=== PATIENT | male | born 1975 | race Caucasian/White ===

== ENCOUNTER 2024-08-26 17:01 | Emergency (ER) | payer OTHER, SELFPAY ==
[2024-08-26 17:06] VITALS: BP 187/114
[2024-08-26 17:36] LABS: % Basophils 0.8 % (0-2); % Eosinophils 6.6 % (0-6); % Immature Granulocytes 0.1 % (0-0.5); % Lymphocytes 44.9 % (20.5-51.1); % Monocytes 8.9 % (1.7-9.3); % Neutrophils 38.7 % (42.2-75.2); Absolute Basophils 0.1 10^3/uL (0-0.2); Absolute Eosinophils 0.5 10^3/uL (0-0.7); Absolute Lymphocytes 3.4 10^3/uL (1.2-3.4); Absolute Monocytes 0.7 10^3/uL (0.1-0.6); Absolute Neutrophils 2.9 10^3/uL (1.4-6.5); Hematocrit 38.1 % (39.0-52.0); Hemoglobin 13.7 g/dL (13.0-18.0); Mean Corpuscular Hgb 28.5 pg (27.0-31.0); Mean Corpuscular Volume 79.2 fL (80.0-94.0); Mean Platelet Volume 8.6 fL (7.4-10.4); Nucleated Red Blood Cells % 0 % (-); Platelet Count 256 10^3/uL (130-400); Red Blood Cell Count 4.81 10^6/uL (4.70-6.10); Red Cell Dist. Width 12.8 % (11.5-14.5); White Blood Cell Count 7.6 10^3/uL (4.8-10.8)
[2024-08-26 17:53] LABS: ALT (SGPT) 20 U/L (0-50); AST (SGOT) 20 U/L (17-59); Albumin 4.2 g/dl (3.5-5.0); Alkaline Phosphatase 82 U/L (38-126); Blood Urea Nitrogen 17 mg/dl (9-20); Calcium 9.2 mg/dl (8.4-10.2); Carbon Dioxide 24 mmol/L (22-30); Chloride 101 mmol/L (98-107); Glucose 104 mg/dl (70-99); Sodium 140 mmol/L (135-145); Total Bilirubin 0.4 mg/dl (0.2-1.3); Total Protein 7.1 g/dl (6.3-8.2); eGFR > 60.00
[2024-08-26 19:12] VITALS: BP 179/108
[2024-08-26 20:36] VITALS: BMI 28.2
--- NOTE | 2024-08-26 20:46 | ED.GENMED ---
History of Present Illness
General
Chief Complaint: Change in Mental Status
Source: patient
Exam Limitations: none
Time Seen by Provider: 08/26/24 20:26
History of Present Illness
History of Present Illness:
This is a 48 year old male that comes in with forgetfulness. States that he is under a lot of stress and anxiety. ON Monday night he went to lay down early. Then on Monday he was unable o remember what happened on Monday night. States that
he was oriented to person but he felt that something was wrong. states that his conversation was just not his normal but he was not confused. States that he feels better know. Denies any fever, chills, chest pain, SOB, abd pain, nausea,
vomiting, diarrhea, dizziness, urinary burning.
Past History
Past History
ED Past Medical History: CAD, HTN, Hypercholesterolemia, [place] and Other (MRSA)
ED Past Surgical History: Cardiac (Stents X 2) and Cholecystectomy
Social History
Tobacco: Smoker
Alcohol: None
Drug: Former user
Personal:
Living: with family
Review of Systems
Review of Systems
All Other Systems: ROS reviewed and negative except as documented in HPI and ROS
Constitutional: Reports no symptoms; Denies fever or chills
EENT: Reports no symptoms
Respiratory: Reports no symptoms; Denies cough or trouble breathing
Cardiac: Reports no symptoms; Denies chest pain
ABD/GI: Reports no symptoms; Denies abdominal pain, nausea, vomiting or diarrhea
: Denies dysuria, frequency or urgency
Musculoskeletal: Reports no symptoms
Skin: Reports no symptoms
Neurological: Reports headache; Denies dizzy
Psychiatric: Reports anxiety and other (Increased stress)
Phy Exam
General Physical Exam
General Presentation: no apparent distress
General age: appears stated age
General Skin: warm and dry
General Habitus: normal
General Mental: alert
General Hydration: dry mucous membranes
ENT Exam
ENT Exam: TM's normal, pharynx normal and neck supple
Eye Exam
Eye Exam: PERRL and EOMI
Cardiovascular Exam
Cardiovascular Exam: regular rate/rhythm, no edema, no murmur and normal peripheral pulses
Pulmonary Exam
Pulmonary Exam: lungs clear, no respiratory distress, no rales, chest non tender, no crackles, no rhonchi, no wheezing and no cough
Gastrointestinal Exam
Gastrointestinal Exam: normal bowel sounds, non tender, soft, no organomegaly, no pulsatile mass and non distended
NIH Stroke Score
Level of Consciousness: 0 - Alert
LOC questions: 0-Answers both correctly
LOC Commands: 0-Performs both correctly
Best Gaze: 0-Normal
Visual Rodney: 0=Normal, no visual loss
Facial palsy: 0=Normal, symmetrical
Motor - Right Arm: 0=No drift 10 seconds
Motor - Left Arm: 0=No drift 10 seconds
Motor - Right Le-No drift 5 seconds
Motor - Left Le-No drift 5 seconds
Limb Ataxia: 0-Absent
Sensation: 0-Normal
Best Language: 0-No aphasia
Dysarthria: 0-Normal
Extinction and Inattention: 0-No abnormality
Total Score:: 0
Musculoskeletal Exam
Musculoskeletal Exam: full ROM, no edema and other (Hand grasp and push pulls equal)
Skin Exam
Skin Exam: normal color, warm/dry, no rash and no petechia
Psychiatric Exam
Psychiatric Exam: normal mood/affect
Course
Orders/Labs/Results
Orders:
Orders
08/26/24 17:09
ECG [Electrocardiogram (*1)] Urgent
Reason for Study: Other
Other Reason for Exam: elevated BP
EKG- Treatment ONCE
08/26/24 17:24
Complete Blood Count/With Diff Urgent
Comprehensive Metabolic Panel Urgent
08/26/24 20:45
CT Head W/o Iv Contrast Urgent
Comment:
Reason For Exam: headache, confusion
0.9% Sodium Chloride 1000 ml [Nss] 1,000 ml IV BOLUS
Abnormal Lab Results
08/26/24
17:24
Hct 38.1 L %
(39.0-52.0)
MCV 79.2 L fL
(80.0-94.0)
Absolute Monos (auto) 0.7 H 10^3/uL
(0.1-0.6)
Neutrophils % 38.7 L %
(42.2-75.2)
Eosinophils % 6.6 H %
(0-6)
Glucose 104 H mg/dl
(70-99)
08/26/24 17:24
08/26/24 17:24
glucose nonfasting.
Vital Signs
Initial and Last Documented VS:
Initial Vital Signs
Temp Pulse Resp BP Pulse Ox
98.3 F 98 18 187/114 98
08/26/24 17:06 08/26/24 17:06 08/26/24 17:06 08/26/24 17:06 08/26/24 17:06
Last Documented Vital Signs
Temp Pulse Resp BP Pulse Ox
98.3 F 91 18 159/93 98
08/26/24 17:06 08/26/24 22:15 08/26/24 22:15 08/26/24 22:00 08/26/24 22:15
MDM/Problems Addressed
Differential Diagnosis Includes:
Transient global amnesia, TIA
MDM/Problems Addressed:
This is a 48 year old male that comes in with c/o forgetting. States that he is under a lot of stress and anxiety. States that on Monday he was under stress and he went to bed early. States that on Monday he was unable to remember what happened on
Monday night. states that he was oriented to person but forgetful as to the evening before.
Will check labs and get CT of head.
Back into see patient. Explained that his blood work is normal along with is CT scan. This is most likely stress and anxiety driving. Please increase his water intake and follow up with the family doctor. Return with any concerns.
Chronic conditions affecting care:
NA
Acute Exacerbation and/or Progression of Chronic Illness:
Stress, anxiety
*Radiology
Radiology exam reviewed: radiology read reviewed (CT head-NO evidence of acute intracranial abnormality)
*Pulse Oximetry
Patient hypoxic: no
*EKG
Interpreted by ED Provider?: Yes
Heart Rate: 89
Rate: normal
Rhythm: sinus
[place]: left axis deviation
Interval: normal interval
QRS Pattern: normal QRS
Ischemia: no ischemia
*Surgical Consultant Interpretation
Rate: normal
Heart Rate: 83
Rhythm: sinus
*Critical Care Note
Total Time (30-74mins, 75-104mins- exclusive of procedures): Not Applicable
ED Attending Note
-
Portions of this chart may have been created with voice recognition software.� Occasional wrong word or��sound alike� substitutions may have occurred due to the inherent limitations of voice recognition software.
Discharge Plan
Departure
Patient Disposition: Home (Routine Discharge)
Date of Disposition: 08/26/24
Time of Disposition: 22:47
Patient with high blood pressure during this ER visit?: Yes
Condition: Good
Covid-19: Not Applicable
Discharge Problem:
Stress reaction, Anxiety
Instructions: Anxiety, Adult ED, BLOOD PRESSURE
Prescriptions:
No Action
losartan 50 MG tablet
50 mg PO DAILY
Patient Comments:
11/22/2023, per spouse, pt. does not take this medication consistently. Pt. filled this med. on 04/26/2023 for a 90-day supply. This med. is prescribed to be taken once daily.
aspirin 81 mg Tablet,Delayed Release (Dr/Ec)
81 mg PO DAILY
acetaminophen [Tylenol Extra Strength] 500 mg Tablet
1,000 mg PO BIDPRN PRN (Reason: mild pain)
nicotine 21 mg/24 hr Patch 24 Hour
1 patch TRANSDERMAL DAILY PRN (Reason: smoking cessation)
Patient Comments:
11/22/2023, per spouse, pt. is not currently wearing.
nitroglycerin 0.4 mg Tablet, Sublingual
0.4 mg SUBLINGUAL [id number] PRN (Reason: chest pain)
omeprazole 20 mg Capsule,Delayed Release(Dr/Ec)
20 mg PO DAILY
Patient Comments:
11/22/2023, per spouse, pt. initially started taking this med. dailyprn but for the past week they have been taking one tablet daily. Pt. filled this med. on 09/18/2023 for 30-day supply. It is prescribed to be taken once daily.
oxycodone 5 mg tablet
5 - 10 mg PO Q4HPRN PRN (Reason: moderate to severe pain) Qty: 20 0RF
Referrals:
Manuel Mccullough DO [Family Provider] - Call in 1-3 days for appt
Activity Restrictions/Additional Instructions:
As discussed, your blood work is normal along with your CT of the head. This is most likely a stress reaction. Please increase your water intake to 8-8oz glasses daily. Try and limit the stress and anxiety. Follow up with the family doctor. iF YOU
HAVE ANY OTHER CONCERNS PLEASE RETURN TO THE EMERGENCY ROOM.
Interventions
Interventions:
*Risk Screen - Suicide Last Done: 08/26/24 20:35
*General Assessment Last Done: 08/26/24 20:32
*Neglect/Abuse Screening Last Done: 08/26/24 20:35
ED- Fall Risk Assessment Last Done: 08/26/24 22:17
*ED COVID-19 Vaccine History Last Done: 08/26/24 20:48
ED- Neurological Assessment Last Done: 08/26/24 20:33
ED Swallowing Screen Last Done: 08/26/24 20:33
Discharge Date and Time
Print Language: WELSH
[2024-08-26 20:47] VITALS: BP 169/100
[2024-08-26 20:49] VITALS: BP 161/96
[2024-08-26] MEDS: NSS 1000 IV (20:49)
[2024-08-26 21:00] VITALS: BP 158/92
[2024-08-26 22:00] VITALS: BP 159/93
== END 2024-08-26 22:20 | disposition home or self-care (01) ==
LOC: EMR 17:01
PROVIDERS: Student in an Organized Health Care Education/Training Program; EMERGENCY PHYSICIAN Student in an Organized Health Care Education/Training Program; FAMILY PHYSICIAN Family Medicine
DX: F43.9 Reaction to severe stress, unspecified (principal); F41.9 Anxiety disorder, unspecified; I25.10 Atherosclerotic heart disease of native coronary artery without angina pectoris; I10 Essential (primary) hypertension; F17.200 Nicotine dependence, unspecified, uncomplicated; E78.00 Pure hypercholesterolemia, unspecified; I25.2 Old myocardial infarction; Z86.14 Personal history of Methicillin resistant Staphylococcus aureus infection; Z90.49 Acquired absence of other specified parts of digestive tract; Z95.5 Presence of coronary angioplasty implant and graft
CPT/HCPCS: 96360; 99284; 70450; 80053; 85025; 93005

== ENCOUNTER 2025-02-21 12:12 | Inpatient (IN) | payer OTHER, SELFPAY ==
[2025-02-21] VITALS (29 sets, daily range): BP systolic 128–185; BP diastolic 81–124; BMI 28.4
--- NOTE | 2025-02-21 08:49 | ED.GENMED ---
History of Present Illness
General
Chief Complaint: Chest Pain
Time Seen by Provider: 02/21/25 08:30
History of Present Illness
History of Present Illness:
49-year-old male with history of CAD status post [place]/ROBERT x 2 in 2021, hypertension, and hyperlipidemia presents to the emergency department for evaluation of left-sided chest pressure and tightness that is been ongoing for the past few months but
worsening today. Pain is random and not clearly exertional. No obvious provoking or palliating factors. Took nitro over the past few days with resolution of pain however this morning nitro did not improve his symptoms. Does not feel comparable
to past angina. No fevers or chills. No shortness of breath. Normal exertional tolerance over the past few months. 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
Past History
Past History
ED Past Medical History: CAD, HTN, Hypercholesterolemia, [place] and Other (MRSA)
ED Past Surgical History: Cardiac (Stents X 2) and Cholecystectomy
Social History
Tobacco: Smoker
Alcohol: None
Drug: Former user
Personal:
Living: with family
Review of Systems
Review of Systems
Allergies reviewed?: Yes
All Other Systems: ROS reviewed and negative except as documented in HPI and ROS
Phy Exam
Physical Exam
Physical Exam:
GEN: Well appearing, NAD, WDWN
HEENT: Oral mucosa moist, no scleral icterus
Cardiac: Regular rate and rhythm, no murmur
Lung: No respiratory distress, no tachypnea, lungs CTAB
MSK: No gross deformity or injuries
Skin: Good color, no pallor or jaundice, no rashes
Neuro: AO x3, moves all extremities freely
Psych: Calm, cooperative
Scores
Heart Score for Chest Pain Patients
STEMI patient?: No
History: Moderately Suspicious
ECG: Nonspecific Repolarization
Age: >45 - <65 years
Risk Factors: >/= 3 Risk Factors or History of CAD
Troponin: >/= 3 x Normal Limit
Heart Score for Chest Pain Patients: 7
Heart Score Risk: 72.7 % MACE over next 6 weeks
Course
Orders/Labs/Results
Orders:
Orders
02/21/25 08:17
EKG [Electrocardiogram (*1)] Urgent
Reason for Study: Chest Pain
EKG- Treatment ONCE
02/21/25 08:49
Nitroglycerin Sublingual [Nitrostat (Sublingual)] 0.4 mg SL NOW STA
CR Chest - 2 Views Urgent
Comment:
Reason For Exam: chest pain
02/21/25 08:51
Complete Blood Count/With Diff Urgent
Comprehensive Metabolic Panel Urgent
NT-proBNP Urgent
Troponin I Urgent
02/21/25 09:25
Add On- LAB Urgent
Tests Added?: bnp
02/21/25 09:39
Aspirin Chewable [Low Strength Aspirin] 324 mg PO NOW STA
Heparin 4,000 units IV NOW STA
Nursing to Place Non Medication Order As Directed
Physician Order: PTT 6 hours after initial start of Heparin infusion
Above order entered?: Yes
02/21/25 09:45
Heparin 44276 Units/250 ml 25,000 units in 250 ml IV PER PROTOCOL
Weight to be used for heparin protocol in kilograms (kg):: 95
Protocol:: Cardiac Tx/Acute Coronary
PTT Goal Range to be used:: PTT 73 to 111 seconds
Order type:: Initial
INITIAL Infusion Dose (UNITS/KG/hr) & then follow protocol:: 15 units/kg/hr
Infusion Dose in UNITS/hr & then follow protocol (UNITS/hr):: 1,450
INFUSION RATE in mL/hr & then follow protocol (mL/hr):: 14.5
PTT less than or equal to 64 seconds:: Increase rate by 200 units/hr (+ 2 mL/hr)
PTT 64.1 to 72.9 seconds:: Increase rate by 100 units/hr (+ 1 mL/hr)
PTT 73 to 111 seconds:: Target Range. No change in rate.
PTT 111.1 to 130.9 seconds:: Decrease rate by 100 units/hr (- 1 mL/hr)
PTT 131 to 199.9 seconds:: HOLD for 1 hr. Then decrease rate by 200 units/hr (- 2 mL/hr)
PTT greater than or equal to 200 seconds:: HOLD for 2 hrs & Notify Provider. Then decrease by 200 units/hr (-
2 mL/hr)
Lab follow-up:: Each change, PTT q6h until 2 consecutive are therapeutic. Then PTT
daily.
02/21/25 Lunch
NPO
Allow oral meds: Yes
Allow clear liquids: Sips of Clears
NPO with Ice Chips: Yes
02/21/25 10:07
PTT Urgent
Comment: Obtain baseline before beginning heparin infusion if not already collected
02/21/25 10:58
Echo 2D MMode Color/Doppler Urgent
Reason for Study: chest pain, h/o CAD
02/21/25 11:00
Consult Cardiology [CARDIOLOGY CONSULT] Urgent
Consulting Provider: Alexx Choi
Was physician already notified: Yes
Reason for consult: chest pain
02/21/25 11:04
Metoprolol Xl [Toprol Xl] 25 mg PO NOW STA
02/21/25 11:31
Admit/Transfer Patient As Directed
Co-Sign Provider:
Level of Care: Inpatient admission
Assign to:: IVU
Physician / Group: Dr. Marek Kirkpatrick/Hospitalists
Diagnosis: Chest Pain, Suspected Acute Coronary Syndrome
Reason for Hospitalization: Chest Pain, Suspected Acute Coronary Syndrome
Expected length of stay greater than two midnights?: Yes
ELOS- Estimated Length of Stay in days: 3
I certify the patient meets the requirements for IP care: Yes
02/21/25 11:35
Code Status As Directed
Resuscitation Status: Full Code
Troponin I Urgent
02/21/25 11:45
Troponin I Q8H
02/21/25 12:00
Amlodipine [Norvasc] 5 mg PO DAILY
Metoprolol Xl [Toprol Xl] 25 mg PO DAILY
02/21/25 12:36
Bisacodyl [Dulcolax] 10 mg RECTAL [id number] PRN
Docusate W/Senna [Senokot-S] 1 tablet PO BIDPRN PRN
Nitroglycerin Sublingual [Nitrostat (Sublingual)] 0.4 mg SL [id number] PRN
Polyethylene Glycol Powder [Miralax] 17 grams PO DAILYPRN PRN
02/21/25 12:36
Activity As Directed
Activity Level: As Tolerated
Intake/ Output As Directed
Frequency: Per unit guidelines
Pneumatic Compression Sleeves As Directed
Type: Knee high
Vital Signs As Directed
Frequency: Per unit guidelines
DX Deep Vein Thrombosis Video Routine
02/21/25 15:00
Troponin I Q6H
02/21/25 16:30
PTT Urgent
02/21/25 18:00
Atorvastatin [Lipitor] 80 mg PO QPM
02/21/25 19:45
Troponin I Q8H
02/21/25 20:00
Buspirone [Buspar] 10 mg PO BID
02/21/25 21:00
Troponin I Q6H
02/22/25 03:00
Troponin I Q6H
02/22/25 03:45
Troponin I Q8H
02/22/25 06:00
Basic Metabolic Panel IN AM
Complete Blood Count/No Diff IN AM
Magnesium IN AM
02/22/25 08:00
Metoprolol Xl [Toprol Xl] 25 mg PO DAILY
Omeprazole Suspension [Prilosec Baby Oral Suspension] 20 mg PO DAILY
02/22/25 09:00
Troponin I Q6H
02/23/25 06:00
Basic Metabolic Panel IN AM
Complete Blood Count/No Diff IN AM
02/24/25 06:00
Basic Metabolic Panel IN AM
Complete Blood Count/No Diff IN AM
02/25/25 06:00
Basic Metabolic Panel IN AM
Complete Blood Count/No Diff IN AM
02/26/25 06:00
Basic Metabolic Panel IN AM
Complete Blood Count/No Diff IN AM
Abnormal Lab Results
02/21/25
08:51
RBC 4.67 L 10^6/uL
(4.70-6.10)
Hgb 12.7 L g/dL
(13.0-18.0)
MCHC 32.6 L g/dL
(33.0-37.0)
Eosinophils % 6.5 H %
(0-6)
Glucose 156 H mg/dl
(70-99)
Troponin I 0.061 H* ng/ml
02/21/25 08:51
02/21/25 08:51
Vital Signs
Initial and Last Documented VS:
Initial Vital Signs
Temp Pulse Resp BP Pulse Ox
98.6 F 92 22 176/117 96
02/21/25 08:20 02/21/25 08:20 02/21/25 08:20 02/21/25 08:20 02/21/25 08:20
Last Documented Vital Signs
Temp Pulse Resp BP Pulse Ox
98.6 F 84 17 155/100 98
02/21/25 08:20 02/21/25 12:45 02/21/25 12:45 02/21/25 12:25 02/21/25 12:45
MDM/Problems Addressed
MDM/Problems Addressed:
Patient's clinical picture is concerning for ACS given the progressive worsening chest pain that was previously resolving with nitro however no longer improving with nitroglycerin administration. His initial EKG is comparable to prior, however
troponin returned is mildly elevated. Patient will be started on heparin and aspirin, was given sublingual nitroglycerin in the ED with resolution of symptoms. Will be admitted to the hospitalist service with cardiology consultation for further
management
*Critical Care Note
Total Time (30-74mins, 75-104mins- exclusive of procedures): 35 minutes
comment:
Critical care time: 35 minutes
Critical care time was exclusive of: Separately billable procedures, treating other patients, and teaching time
Critical care was necessary to treat or prevent imminent or life-threatening deterioration of the following conditions: NSTEMI
Critical care time spent personally by me on the following activities:
[x] Review of old charts
[x] Obtaining history from patient or surrogate
[x] Ordering and review of the laboratory studies
[x] Ordering and review of radiographic studies
[x] Ordering and performing treatments and interventions
[x] Patient patient's response to treatment
[x] Development of treatment plan with patient or surrogate
ED Attending Note
-
Portions of this chart may have been created with voice recognition software.� Occasional wrong word or��sound alike� substitutions may have occurred due to the inherent limitations of voice recognition software.
Discharge Plan
Departure
Patient Disposition: Admit
Date of Disposition: 02/21/25
Time of Disposition: 09:41
Admit to: IVU
Presentation/result/management discussed w/ accepting MD/DO: Hospitalist
Discharge Problem:
Acute non-ST elevation myocardial infarction (NSTEMI)
Interventions
Interventions:
*Risk Screen - Suicide Last Done: 02/21/25 08:24
*General Assessment Last Done: 02/21/25 08:24
*Neglect/Abuse Screening Last Done: 02/21/25 08:24
*ED COVID-19 Vaccine History Last Done: 02/21/25 08:24
ED- Cardiac Assessment Last Done: 02/21/25 09:34
[2025-02-21] MEDS: NITROSTAT (SUBLINGUAL) 0.4 MG SL (08:54)
[2025-02-21 09:07] LABS: % Basophils 0.9 % (0-2); % Eosinophils 6.5 % (0-6); % Lymphocytes 30.4 % (20.5-51.1); % Monocytes 7.2 % (1.7-9.3); Absolute Basophils 0.1 10^3/uL (0-0.2); Absolute Eosinophils 0.4 10^3/uL (0-0.7); Absolute Lymphocytes 1.8 10^3/uL (1.2-3.4); Absolute Monocytes 0.4 10^3/uL (0.1-0.6); Absolute Neutrophils 3.2 10^3/uL (1.4-6.5); Hemoglobin 12.7 g/dL (13.0-18.0); Mean Corp Hgb Conc. 32.6 g/dL (33.0-37.0); Mean Corpuscular Hgb 27.2 pg (27.0-31.0); Mean Corpuscular Volume 83.5 fL (80.0-94.0); Mean Platelet Volume 9.6 fL (7.4-10.4); Nucleated Red Blood Cells % 0 % (-); Platelet Count 232 10^3/uL (130-400); Red Blood Cell Count 4.67 10^6/uL (4.70-6.10); Red Cell Dist. Width 13.7 % (11.5-14.5); White Blood Cell Count 5.8 10^3/uL (4.8-10.8)
[2025-02-21 09:14] LABS: ALT (SGPT) 23 U/L (0-50); AST (SGOT) 21 U/L (17-59); Albumin 4.4 g/dl (3.5-5.0); Alkaline Phosphatase 79 U/L (38-126); Blood Urea Nitrogen 18 mg/dl (9-20); Calcium 9.4 mg/dl (8.4-10.2); Carbon Dioxide 27 mmol/L (22-30); Chloride 102 mmol/L (98-107); Glucose 156 mg/dl (70-99); Sodium 138 mmol/L (135-145); Total Bilirubin 0.8 mg/dl (0.2-1.3); Total Protein 7.1 g/dl (6.3-8.2); eGFR > 60.00
[2025-02-21 09:27] LABS: Troponin I 0.061 ng/ml
[2025-02-21] MEDS: LOW STRENGTH ASPIRIN 324 MG PO (09:46)
[2025-02-21] MEDS: HEPARIN 25000 UNITS/250 ML IV ×2 (10:17→22:00)
[2025-02-21] MEDS: HEPARIN 4000 UNITS IV (10:17)
--- NOTE | 2025-02-21 10:19 | CON.CAR ---
Addendum entered and electronically signed by Alexx Choi MD 02/21/25 13:32:
I saw and examined the patient.
The Lining Printer's note was reviewed and I agree with the note.
Comment: Briefly, 49-year-old man past medical history of multivessel CAD, hypertension, hyperlipidemia, current smoker who presents with chest tightness which has been intermittent but progressive over the course of at least several weeks. Patient
was experiencing the pain this morning and took a sublingual nitroglycerin without relief. Subsequently presented to [place] emergency department and was given additional sublingual nitroglycerin and chest discomfort resolved.
ECG was unchanged from prior
Initial troponin was mildly elevated 0.06, repeat is pending, would trend to peak
With concern for NSTEMI patient was given aspirin and started on heparin drip
Transthoracic echocardiogram here shows moderately reduced left ventricular systolic function, LVEF 30 to 35%, and moderately elevated pulmonary artery pressures
proBNP was elevated to 3700
Suspect there is also component of acute heart failure-plan to start IV Lasix
Patient is currently chest pain-free
Discussed with patient and at bedside that timing of left heart catheterization would be dictated by troponin trend and symptoms but could potentially be performed this afternoon
Original Note:
Consultation
Consultation Request
Date/Time Consultation Requested: 02/21/2025, 09 45
Date/Time Consultation Performed: 02/21/2025, 1020
Requesting Provider: Dr. Ruiz
Performing Provider: BERNIE Qrueshi for Dr. Choi
Reason for Consultation: Chest pressure/tightness
Medical History
-
Chief Complaint: Chest pressure and tightness
History of Present Illness:
49-year-old male with past medical history of coronary artery disease status post inferior MS and drug-eluting stent RCA at [place] as well 2nd stent in stage procedure at [place] (artery unknown at this time, obtaining records from primary
supervisor marble) in December 2021. Also with h/o hypertension, hyperlipidemia, current smoker presents to ED with left-sided chest pressure and tightness that has been ongoing for the past few months but worse today. Pain described as a tightness
that occurs randomly and radiates to left arm. When it first started occurring was lasting 5 minutes and relieved with sublingual nitroglycerin. Has been occurring more frequently and this morning had tightness upon awakening with associated
diaphoresis and mild shortness of breath, took 1 sublingual nitro with no relief and came to ED. 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 He was
previously seen by Dr. Easley at [facility] cardiology but has not been seen there since September 2022. He reports he had echo and stress test after stenting in 2021. Obtaining reports. He has been off all of his medications for months. Reports
he was previously on aspirin, metoprolol, losartan, BuSpar.
EKG: Normal sinus rhythm, inferior infarct, LVH
Troponin 0.061
proBNP pending
Hemoglobin 12.7, WBC 5.8, platelet 232, BUN/creatinine 18/1.2, NA 138, K4.0
Chest x-ray increased interstitial opacities bilaterally with scattered nodular densities. Findings nonspecific, could represent interstitial edema versus pneumonitis
Patient received aspirin and started on heparin drip. Pain-free after 2 sublingual nitroglycerin.
Past medical history:
Inferior MS 12/2021
Drug-eluting stent to RCA 12/2021 at [place], 2nd stent at [facility] in staged procedure 2 weeks after first stent, per pt
Hypertension
Hyperlipidemia
smoker, 1 pack/day
Social History
Tobacco: Smoker (1 pack of cigarettes per day)
Alcohol: None
Drug: Marijuana
Personal:
Living: With Family
Employment: Employed
Family History
Family History: CAD (Father with history of CAD and patient of BERNARDINO Lewis)
Allergies / Home Medications
Allergy/AdvReac Type Severity Reaction Status Date / Time
No Known Allergies Allergy Verified 02/21/25 08:26
�Medication �Instructions �Recorded �Confirmed �Type
nitroglycerin 0.4 mg sublingual 0.4 mg sublingual [id number] PRN 11/22/23 02/21/25 History
tablet chest pain
omeprazole 20 mg capsule,delayed 20 mg PO DAILY 11/22/23 02/21/25 History
release
buspirone 10 mg tablet 10 mg PO BID 02/21/25 02/21/25 History
metoprolol succinate 25 mg 25 mg PO DAILY 02/21/25 02/21/25 History
tablet,extended release 24 hr
sertraline 50 mg tablet 50 mg PO DAILY 02/21/25 02/21/25 History
Review of Systems
-
History Source: Patient
All other systems: Negative unless noted
Physical Exam
Vital Signs
Temp Pulse Resp BP Pulse Ox
98.6 F 90 23 154/104 98
02/21/25 08:20 02/21/25 09:30 02/21/25 09:30 02/21/25 09:21 02/21/25 09:38
Lab Results
02/21/25 08:51
02/21/25 08:51
Troponin I 0.061 ng/ml H* 02/21/25 08:51
GEN: No distress, awake, Ox3
HEENT: supple, anicteric, mmm
LUNGS: Expiratory wheezing
CV: Reg, S1/S2, no murmur
ABD: soft, BS+, NT/ND
EXT: No edema, multiple scars on lower extremities
NEURO: Gross non-focal
SKIN: Eczema patches bilateral axilla
Impression / Plan
-
PCP:
Primary supervisor marble: Previously saw Endy Kaushal at [facility] cardiology but has not been seen there since September 2022. Would like to follow-up with BERNARDINO Lewis at [facility] in future as his father is a patient
Impression:
Chest pain/tightness
Elevated troponin
History of inferior MS 12/2021
Status post RCA stent, 12/2021 as well as stenting of another artery 2 weeks later, obtaining records
Hypertension
Hyperlipidemia
Current smoker
Medication noncompliance
Previous cardiovascular testing: In process of obtaining
Plan:
49-year-old male with history of inferior MS status post ROBERT to RCA as well as staged stenting of a second artery in 2021, hypertension, hyperlipidemia, smoker, no recent cardiac follow-up, stopped all medications months ago, presents for evaluation
of 1 month history of intermittent chest tightness, progressing in frequency, previously relieved with 1 sublingual nitroglycerin but no relief this morning. Had tightness with associated diaphoresis and chest pain. Presented to ED, first troponin
elevated at 0.061. EKG nonischemic, chest x-ray concerning for increased opacities bilaterally may represent interstitial edema versus pneumonitis.
1.History of CAD/stenting, now with progressively increasing chest tightness, elevated troponin
- Trend troponins and EKGs
- Heparin drip
- Nitro as needed for chest pain, currently chest pain-free
-N.p.o. for cath today
-Aspirin, statin
- Resume outpatient meds including Toprol and will start amlodipine for antianginal and antihypertensive hypertensive benefits
- Obtaining records from previous cardiology office
- Smoking cessation
2. Hypertension
--BPs elevated since arrival in 150s-180s/90s- 110s
-Resume beta-ayden and starting amlodipine for antianginal benefits
3. History of hyperlipidemia.
-Check updated FLP and resume statin. Was on atorvastatin 80 mg daily�I ordered
- Goal LDL less than 55
Data Reviewed
-
EKG: Tracing Personally Visualized and interpreted
Labs: Labs Reviewed by me
[2025-02-21 10:27] LABS: APTT 28.2 Sec (23.4-35.0)
--- NOTE | 2025-02-21 11:37 | HPS.HSE ---
Family Physician
-
Family Physician: Manuel Mccullough
Chief Complaint
-
Chest Tightness and Shortness of Breath
History of Present Illness
49 y/o male with past medical history of coronary artery disease status post inferior myocardial infarction and drug-eluting stent RCA at [facility] as well 2nd stent in stage procedure at [place] in December 2021, hypertension, hyperlipidemia and
current smoker presented with non-exertional left-sided chest pain for a month or two, now getting worse. Patient says he woke up this morning and felt left-sided chest tightness but unlike prior episodes of chest tightness, this episode did not
resolve with nitroglycerin. He also has been feeling some shortness of breath and dizziness. He smokes a pack of cigarettes per day, and has family history of heart disease in his father. He also has had a lot of stress lately, and he mentioned that
he has not taken his home medications for a long while now. He denied any other symptoms on ROS.
Medical History
Past Medical History
Past Medical History: Reports Other (As per HPI above)
Past Surgical History: Reports Cardiac (Stents)
Social History
Tobacco: Smoker
Alcohol: None
Drug: Marijuana
Family History
Family History: CAD
Allergies / Home Medications
Allergies reflects when Allergies were last updated in [employer].
Home Medications with original date entered in [employer]
Allergy/Medication List:
Allergies
Allergy/AdvReac Type Severity Reaction Status Date / Time
No Known Allergies Allergy Verified 02/21/25 08:26
Home Medications
nitroglycerin 0.4 mg sublingual tablet 0.4 mg sublingual [id number] PRN chest pain 11/22/23
omeprazole 20 mg capsule,delayed release 20 mg PO DAILY 11/22/23
buspirone 10 mg tablet 10 mg PO BID 02/21/25
metoprolol succinate 25 mg tablet,extended release 24 hr 25 mg PO DAILY 02/21/25
sertraline 50 mg tablet 50 mg PO DAILY 02/21/25
Review of Systems
-
A 12 point ROS was completed and negative except as noted: Yes
Physical Exam
Vital Signs
Vital Signs
Temp Pulse Resp BP Pulse Ox
98.6 F 90 23 154/104 98
02/21/25 08:20 02/21/25 09:30 02/21/25 09:30 02/21/25 09:21 02/21/25 09:38
Physical Exam
General: No Apparent Distress, Comfortable and Conversant
HEENT: NormoCephalic and Moist mucous membranes
Respiratory: Wheezes
Cardiac: S1/S2 and Regular Rhythm
GI: Soft, Non Tender and Normal Bowel Sounds
Musculoskeletal: No Cyanosis and No Edema
Skin: Warm and Dry
Neuro: Awake, Alert, AO x 3, Nonfocal/grossly intact and Cranial Nerves Intact
Psych: Calm and Intact Judgment/Insight
Laboratory Results
-
02/21/25 08:51
02/21/25 08:51
Laboratory Results
APTT 28.2 Sec (23.4-35.0) 02/21/25 10:07
Total Bilirubin 0.8 mg/dl (0.2-1.3) 02/21/25 08:51
AST 21 U/L (17-59) 02/21/25 08:51
ALT 23 U/L (0-50) 02/21/25 08:51
Alkaline Phosphatase 79 U/L (38-126) 02/21/25 08:51
Troponin I 0.061 ng/ml H* 02/21/25 08:51
Impression/Plan
-
Assessment/Plan
Presentation with Chest Tightness, progressive
Coronary artery disease status post inferior myocardial infarction and drug-eluting stent RCA at [facility] as well 2nd stent in stage procedure at [place] in December 2021
-Patient has not taken his home meds for months
-EKG
-Trend troponins
-Heparin Drip
-Aspirin
-Cardiac cath -- NPO for cardiac cath
-Cardiology consulted
Hypertension
-Patient has not taken his home medications including Toprol XL for months
-Resume outpatient medications including Toprol and start Amlodipine which would help with chest tightness as well
-Low sodium diet when diet resumed
Hyperlipidemia
-Start high intensity statin
Current smoker
-Tobacco cessation encouraged
Marijuana Use
DVT Prophylaxis: On Heparin Drip
Code Status: Full Code
[2025-02-21 11:38] LABS: NT-proBNP 3750 pg/ml
--- NOTE | 2025-02-21 11:41 | W.PN.UPDATE ---
Update Note
Progress Note Update
I obtain records from previous parts cataloguer, Endy Easley.
Previous testing:
Cardiac cath 12/31/2021 at [place] in setting of STEMI: Left main 20% distal, LAD 70 to 80% mid, D1 30% ostial, D2 20%, D3 100% occluded; left circumflex proximal chronic total occlusion 100%; RCA proximal chronic total occlusion thrombotic
occlusion, 50% mid stenosis, ROBERT to RCA placed
-Patient referred to [place] for SENIOR HR GENERALIST intervention on left circumflex-
Cardiac cath 01/14/2022 at [place]: Successful IVUS guided PCI of left circumflex/OM chronic total occlusion and placement of overlapping 3.0 x 38 mm and 3.25 x 12 mm from left circumflex ostium into mid OM.
LAD lesion was felt best treated with medical management, was less significant than previously thought.
Nuclear stress test 04/27/2022: LV myocardial perfusion consistent with two-vessel disease, small size fixed apical defect consistent with infarct in the territory of the distal LAD. Moderate size inferior lateral defect consistent with ischemia in
the territory typical of proximal left circumflex and/or RCA
Echocardiogram 12/2021 at [place]: LV EF 50 to 55%, mild LVH, normal RV size and function, mild MR, RV systolic pressure 33 mmHg, aortic root 3.67 cm, sinuses 3.[address] junction 2.67 cm, and ascending aorta 3.24 cm
[2025-02-21] MEDS: TOPROL XL 25 MG PO (12:11)
[2025-02-21] MEDS: NORVASC 5 MG PO (12:25)
[2025-02-21 13:29] LABS: Troponin I 0.346 ng/ml
[2025-02-21] MEDS: ATIVAN 0.5 MG IV (13:34)
[2025-02-21] MEDS: COZAAR 50 MG PO (16:01)
[2025-02-21] MEDS: LASIX 40 MG IV (16:02)
--- NOTE | 2025-02-21 16:46 | CM ---
Reviewed patient's medication coverage for the following medications should he require them:
Brilinta, Farxiga (brand), + Jardiance are all tier 1 medications and should cost $0.
[2025-02-21 18:01] LABS: B.E. 1.9 mmol/L; HCO3 26.6 mmol/L (21-28); O2 Saturation % 94.9 % (94-98); PCO2 41 mmHg (35-48); PO2 72 mmHg (83-108); pH 7.42 (7.35-7.45)
--- NOTE | 2025-02-21 18:33 | PTCARENOTE ---
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 patient is pain free. IV nitroglycerin @ 40mcg/min or 6cc/hr. via left AC. right arterial and venous site dsg. D/I, distal pulses weak. oriented patient to room and surroundings. patient is
very emotional, and mother at bedside.
--- NOTE | 2025-02-21 18:47 | ITS.CL.CATH ---
Addendum entered and electronically signed by Lore Arce MD 02/22/25 16:42:
Left Anterior Descending Artery (LAD):� Large caliber vessel that gives off small caliber diagonals as it courses along the anterior inter-ventricular groove before wrapping around the cardiac apex. The LAD has ostial 80% stenosis and mid-LAD 90%
just distal to the takeoff of the third diagonal which appears to be 100% proximal chronic total occlusion with left to left collaterals, noted on prior cath in 2021 at [facility].
Lore Arce MD, [facility], [facility]
Original Note:
Alkylation Operator - Catheterization
Cardiac Catheterization
Procedure Report:
LEFT AND RIGHT HEART CATHETERIZATION
Date of Procedure: February 21, 2025
Referring: Alexx Choi MD, PhD.
PROCEDURES:
1. Left heart catheterization, coronary angiogram.
2. Moderate sedation
INDICATION: Concern for NSTEMI
ACCESS: Right radial artery was attempted however we could not advance the wire successfully. This access was aborted after manual pressure was held for 15 minutes.
1. Right common femoral artery, 6 Gibraltarian sheath, under ultrasound guidance. Using a micropuncture kit
2. Right common femoral vein, 6 Gibraltarian sheath, under ultrasound guidance using a micropuncture kit.
HEMODYNAMICS : (mmHg)
RA (m) : 13
RV (s/d,m) : 46/12, 23
PA (s/d, m) : 49/30, 36
PCWP (m) : 25
PA saturation: 60.5% on room air
AO saturation: 90.0% on room air
RA saturation: 60.3% on room air
Cardiac Output : 5.22 L/min
Cardiac Index : 2.40 L/min/m-2
Systemic vascular resistance: 1567 dsc^(-5)
Pulmonary vascular resistance: 3.07 hernandez unit
AO (s/d) : 156/104
LVEDP : 40
CORONARY FINDINGS
DOMINANCE: Right
Left Main Trunk (LMT):� Large caliber vessel that gives rise to the LAD and LCx branches and is free of angiographic disease.
Left Anterior Descending Artery (LAD):� Large caliber vessel that gives off small caliber diagonals as it courses along the anterior inter-ventricular groove before wrapping around the cardiac apex. The LAD has ostial 80% stenosis and mid-LAD 90%.�
Left Circumflex Artery (LCx):� Large caliber vessel that gives off a large caliber first major obtuse marginal (OM) branches as it courses along the atrio-ventricular (AV) groove.� The LCx has mild luminal irregularities. Previously placed stents
are widely patent. Just distal to the stent there is a myocardial bridge present.
Right Coronary Artery (RCA):� Large caliber dominant vessel that gives rise to the posterior descending artery (RPDA) and postero-lateral ventricular (RPLV) branches distally.� The RCA has mid vessel and distal 70% stenoses. The ostial RPDA has an
ostial 50% stenosis. There are good distal bypass targets.
SEDATION: 57 minutes of procedural sedation was utilized. An independent medical imaging technologist was present to assist with and help manage the patient's level of consciousness and physiologic status.
RADIATION SUMMARY: Fluoro Time (min): 3.2, Dose (mGy): 412.0, DAP (Gy.cm2) : 29.7
Closure Device: 6 Gibraltarian RFA access was Perclose using one Perclose suture with successful hemostasis. Manual pressure was held over the right common femoral venous access site with successful hemostasis.
CONCLUSIONS
1. Significant multivessel coronary artery disease involving the mid RCA and ostial LAD.
2. Significantly elevated right left-sided filling pressures with normal cardiac output and significantly elevated systemic vascular resistance.
RECOMMENDATIONS
1. Continue management for ACS with daily baby aspirin, IV unfractionated heparin, high intensity statin. Nitro glycerin drip being used to keep blood pressures less than 140/90.
2. Optimization of goal-directed medical therapy as hemodynamics improve for ischemic cardiomyopathy.
3. Bedrest per protocol.
4. Aggressive IV diuresis.
5. CT surgery consult for consideration for coronary artery bypass grafting.
6. Eventual referral for outpatient cardiac rehab
Lore Arce MD, FACC, [facility]
--- NOTE | 2025-02-21 18:50 | CONSULT.CT ---
Patient History
Physicians
Family Physician: Manuel Mccullough
Outpatient Track Coach: Dr. Easley (2 years ago)
Inpatient Track Coach: BERNARDINO Lewis
History of Present Illness
49-year-old male with past medical history of CAD s/p posterior MS with drug-eluting stent to RCA and second stent and staged procedure at [place] in December 2021, HTN, HLD, current smoker has been having left-sided chest pain for several months that has
been getting worse. He states that today he woke up and felt left-sided tightness that was unlike previous episodes. This episode did not resolve with nitroglycerin and it was associated with shortness of breath and dizziness. Due to the symptoms
patient presented to our emergency room. Patient was found to have an elevated troponin and an echocardiogram was performed and his LVEF was found to be 30-35% with mild MR and mild TR with elevated PA pressures. Patient was subsequently taken to
the cardiac Coating Mixer Tender where multivessel disease was found with a left heart cath and right heart cath showed an elevated LVEDP, elevated SVR and an index of 1.7. CT surgery was consulted for surgical revascularization.
Of note patient is an active smoker and has family history significant for heart disease.
He also states that he has been under a lot of stress lately and has not taken home medications for several months.
Cardiac cath 12/31/2021 at [place] in setting of STEMI: Left main 20% distal, LAD 70 to 80% mid, D1 30% ostial, D2 20%, D3 100% occluded; left circumflex proximal chronic total occlusion 100%; RCA proximal chronic total occlusion thrombotic
occlusion, 50% mid stenosis, ROBERT to RCA placed
-Patient referred to [place] for MARKETING PROGRAM COORDINATOR intervention on left circumflex-
Cardiac cath 01/14/2022 at [place]: Successful IVUS guided PCI of left circumflex/OM chronic total occlusion and placement of overlapping 3.0 x 38 mm and 3.25 x 12 mm from left circumflex ostium into mid OM.
LAD lesion was felt best treated with medical management, was less significant than previously thought.
Nuclear stress test 04/27/2022: LV myocardial perfusion consistent with two-vessel disease, small size fixed apical defect consistent with infarct in the territory of the distal LAD. Moderate size inferior lateral defect consistent with ischemia in
the territory typical of proximal left circumflex and/or RCA
Echocardiogram 12/2021 at [place]: LV EF 50 to 55%, mild LVH, normal RV size and function, mild MR, RV systolic pressure 33 mmHg, aortic root 3.67 cm, sinuses 3.[address] junction 2.67 cm, and ascending aorta 3.24 cm
Past Medical History
Past Medical History: CAD, HTN, Hypercholesterolemia, MS and SOB
Past Surgical History
Past Surgical History: PCI/Stent
Family History
Family Medical History: CAD
Social History
Alcohol: None
Drug: Marijuana
Tobacco: Smoker
Personal:
Living: With Spouse
Employment: Employed
Allergies
Allergy/AdvReac Type Severity Reaction Status Date / Time
No Known Allergies Allergy Verified 02/21/25 08:26
Home Medications
�Medication �Instructions �Recorded �Confirmed �Type
nitroglycerin 0.4 mg sublingual 0.4 mg sublingual [id number] PRN 11/22/23 02/21/25 History
tablet chest pain
omeprazole 20 mg capsule,delayed 20 mg PO DAILY 11/22/23 02/21/25 History
release
buspirone 10 mg tablet 10 mg PO BID 02/21/25 02/21/25 History
metoprolol succinate 25 mg 25 mg PO DAILY 02/21/25 02/21/25 History
tablet,extended release 24 hr
sertraline 50 mg tablet 50 mg PO DAILY 02/21/25 02/21/25 History
Review of Systems
-
History Source: Patient and Family
General: Reports Fatigue
Respiratory: Reports SOB
Cardiac: Reports Chest Pain and CAD
Abdomen/GI: Reports No Symptoms
: Reports No Symptoms
Musculoskeletal: Reports No Symptoms
Skin: Reports No Symptoms
Neurological: Reports No Symptoms
Vascular: Reports No Symptoms
Physical Exam
Vital Signs
Temp 98.2 F 02/21/25 18:39
Temp route: Oral 02/21/25 18:39
Pulse 80 02/21/25 18:39
Resp Rate 16 02/21/25 18:39
Blood pressure 141/93 02/21/25 18:39
Blood pressure extremity used: Left upper arm 02/21/25 18:39
Position: Lying 02/21/25 18:39
MAP (cuff-Maxim Monitor) 104 02/21/25 18:30
SaO2 93 02/21/25 18:39
Oxygen Mode of Delivery Room air 02/21/25 18:39
Can the patient verbally communicate their pain? Yes 02/21/25 08:54
Pain scale ratin 02/21/25 08:54
Actual Weight 95 kg 02/21/25 09:37
Body Mass Index (BMI) 28.4 02/21/25 09:37
Labs
02/21/25 08:51
02/21/25 08:51
APTT 28.2 Sec (23.4-35.0) 02/21/25 10:07
Troponin I 1.190 ng/ml H* D 02/21/25 16:03
Qne-N-Obooroecuoj Pept 3750 pg/ml 02/21/25 08:51
Arterial Blood Gases
pH 7.42 (7.35-7.45) 02/21/25 17:57
pCO2 41 mmHg (35-48) 02/21/25 17:57
pO2 72 mmHg (83-108) L 02/21/25 17:57
HCO3 26.6 mmol/L (21-28) 02/21/25 17:57
Base Excess 1.9 mmol/L 02/21/25 17:57
ABG O2 Sat (Measured) 94.9 % (94-98) 02/21/25 17:57
O2 Delivery Level 02/21/25 17:57
Exam
General: Well Developed and Well Nourished
HEENT: Normocephalic
Respiratory: Clear
Cardiac: S1/S2 and Regular Rhythm
GI: Soft and Non Tender
Rectal: Deferred by Provider
Skin: Warm and Dry
Neuro: AO x 3
Extremities: Pulses (+2)
Lymph: No Lymphadenopathy
Psych: Calm and Other (anxious)
Assessment / Plan
-
49-year-old male with past medical history listed above presented to [facility] with complaints of chest pain. Left heart cath revealed multivessel disease and CT surgery was consulted for surgical evaluation.
#CAD
-Patient's case will be discussed with attending physician. Further details regarding surgical timing intervention will be determined after attending physicians full evaluation
-Routine preoperative cardiothoracic surgery orders will be initiated.
-STS risk stratification score will be calculated after preoperative testing is complete
-Continue nitroglycerin and heparin gtt per cardiology
[2025-02-21] MEDS: BUSPAR 10 MG PO (20:27)
[2025-02-21] MEDS: LIPITOR 80 MG PO (20:27)
--- NOTE | 2025-02-21 20:30 | PTCARENOTE ---
Resumed care on pt, aaox3, nsr on the monitor, Hr 80-90's, pain free. IV nitroglycerin infusing @ 40mcg/min via left AC. right arterial and venous site dsg CDI, normal pedal pulses b/l. Denies SOB, o2 sat 98% RA. Pt tearful and anxious, emotional
support given, family at bedside. Daily smoker, education on smoking caseation provided, nicotine patch applied to TONNY. Call harper within reach, advised to call for assistance.
[2025-02-21] MEDS: NICODERM TRANSDERMAL 21 MG TRANSDERM (21:48)
--- NOTE | 2025-02-21 23:32 | PTCARENOTE ---
Heparin gtt restarted at 2200 as per order, infusing @ 1450 unit/hr via right AC. Next ptt assessment at 0400.
[2025-02-22] VITALS (10 sets, daily range): BP systolic 132–151; BP diastolic 61–96; BMI 27.2
[2025-02-22] MEDS: TYLENOL 650 MG PO ×4 (03:14→19:52)
[2025-02-22 04:05] LABS: Hematocrit 36.2 % (39.0-52.0); Hemoglobin 12.2 g/dL (13.0-18.0); Mean Corp Hgb Conc. 33.7 g/dL (33.0-37.0); Mean Corpuscular Hgb 27.2 pg (27.0-31.0); Mean Corpuscular Volume 80.8 fL (80.0-94.0); Mean Platelet Volume 9.4 fL (7.4-10.4); Platelet Count 243 10^3/uL (130-400); Red Blood Cell Count 4.48 10^6/uL (4.70-6.10); Red Cell Dist. Width 13.5 % (11.5-14.5); White Blood Cell Count 9.8 10^3/uL (4.8-10.8)
[2025-02-22 04:14] LABS: APTT 30.4 Sec (23.4-35.0); PT 13.5 Sec (11.4-14.6)
[2025-02-22 04:32] LABS: ALT (SGPT) 22 U/L (0-50); AST (SGOT) 25 U/L (17-59); Alkaline Phosphatase 88 U/L (38-126); Blood Urea Nitrogen 16 mg/dl (9-20); Calcium 9.2 mg/dl (8.4-10.2); Carbon Dioxide 26 mmol/L (22-30); Chloride 101 mmol/L (98-107); Direct Bilirubin 0.2 mg/dl (0.0-0.4); Estimated Creatinine Clearance 83 ml/min; Glucose 126 mg/dl (70-99); Magnesium 1.9 mg/dl (1.6-2.3); Potassium 4.1 mmol/L (3.5-5.1); Sodium 136 mmol/L (135-145); Total Bilirubin 1.1 mg/dl (0.2-1.3); Total Protein 6.6 g/dl (6.3-8.2); eGFR > 60.00
--- NOTE | 2025-02-22 07:04 | W.PN.HOSP.TC ---
Today's Communication/Plan
-
Continue Heparin Drip
Monitor in IVU
See plan
Assessment / Plan
Assessment / Plan
Physical Exam
General: No Apparent Distress, Comfortable and Conversant
HEENT: Normocephalic and Moist mucous membranes
Respiratory: Wheezes
Cardiac: S1/S2 and Regular Rhythm
GI: Soft, Non Tender and Normal Bowel Sounds
Musculoskeletal: No Cyanosis and No Edema
Skin: Warm and Dry
Neuro: Awake, Alert, AO x 3, Nonfocal/grossly intact and Cranial Nerves Intact
Psych: Calm and Intact Judgment/Insight
Assessment/Plan
Presentation with Chest Tightness, progressive
Coronary artery disease status post inferior myocardial infarction and drug-eluting stent RCA at [facility] as well 2nd stent in stage procedure at [facility] in December 2021
-Patient has not taken his home meds for months
-EKG
-Trended troponins
-Continue Heparin Drip, Aspirin and high-intensity statin
-No signs of bleeding while on Heparin Drip
-Nitroglycerin drip to maintain blood pressures less than 140/90 mmHg
-Cardiac cath on 02/21/25 showed significant multivessel coronary artery disease involving the mid RCA and ostial LAD as well as significantly elevated right left-sided filling pressures with normal cardiac output and significantly
elevated systemic vascular resistance
-Aggressive IV diuresis with Lasix
-Cardiology consulted
-CT Surgery consulted for CABG evaluation
-Eventual cardiac rehab
Hypertension
-Patient has not taken his home medications including Toprol XL for months
-Resume outpatient medications including Toprol
-Hold Amlodipine for now; nitroglycerin being for blood pressure for now
-Low sodium diet when diet resumed
Hyperlipidemia
-Continue high intensity statin
Current smoker
-Tobacco cessation encouraged
Marijuana Use
DVT Prophylaxis: On Heparin Drip
Code Status: Full Code
Anticipated Discharge: > 48 hours
Subjective/Interval History
-
Date of Service: February 22, 2025
Patient was seen and examined. He denied any chest pain or shortness of breath.
Objective Data
-
Labs:
Laboratory Results
02/21/25 02/22/25 02/22/25
19:48 03:49 06:00
WBC 9.8
Hgb 12.2 L
Hct 36.2 L
Plt Count 243
PT 13.5 Cancelled
INR 1.00 Cancelled
APTT Cancelled 30.4
Sodium 136
Potassium 4.1
Chloride 101
Carbon Dioxide 26
BUN 16
Creatinine 1.2
Glucose 126 H
Calcium 9.2
Total Bilirubin 1.1
AST 25
ALT 22
Alkaline Phosphatase 88
02/22/25
11:00
WBC
Hgb
Hct
Plt Count
PT
INR
APTT Pending
Sodium
Potassium
Chloride
Carbon Dioxide
BUN
Creatinine
Glucose
Calcium
Total Bilirubin
AST
ALT
Alkaline Phosphatase
Vital Signs:
Vital Signs
Temp Pulse Resp BP Pulse Ox
98.4 F 76 20 134/87 95
02/22/25 03:43 02/22/25 03:30 02/22/25 03:16 02/22/25 03:17 02/22/25 03:16
I&O
02/21/25 02/22/25 02/23/25
06:59 06:59 06:59
Intake Total 246 / 246
Output Total 1400 / 1400
Balance -1154 / -1154
[2025-02-22] MEDS: PROTONIX 40 MG PO (08:05)
[2025-02-22] MEDS: COZAAR 50 MG PO (08:06)
[2025-02-22] MEDS: TOPROL XL 25 MG PO (08:06)
[2025-02-22] MEDS: LASIX 40 MG IV (08:06)
[2025-02-22] MEDS: NICODERM TRANSDERMAL 21 MG TRANSDERM (08:07)
[2025-02-22] MEDS: BUSPAR 10 MG PO ×2 (08:07→19:52)
[2025-02-22 08:47] LABS: Glycohemoglobin (HgbA1c) 5.1 % (4.0-5.6)
--- NOTE | 2025-02-22 08:50 | PTCARENOTE ---
Assumed care. Patient complaints of a headache, Tylenol given, denies chest pain or shortness of breath. Harsh non-productive cough, rhonchi b/l with wheezing, POX 93-94%. Right groin site soft non-tender, +1 dorsal pedis on the right, +2 on the
left. NSR HR 70-80, BP 137/96. Nitro gtt at 40mcg/min (8cc/hr) and Heparin gtt at 1650 Units/hr. Plan of care reviewed, breakfast ordered, call harper in reach
--- NOTE | 2025-02-22 09:46 | PTCARENOTE ---
Patient sent for his CT scan on a stretcher
[2025-02-22 11:39] LABS: APTT 42.2 Sec (23.4-35.0)
[2025-02-22 11:57] LABS: Troponin I 0.908 ng/ml
[2025-02-22] MEDS: VENTOLIN NEBULES 2.5 MG INH (11:57)
[2025-02-22] MEDS: HEPARIN 25000 UNITS/250 ML IV (12:06)
--- NOTE | 2025-02-22 13:57 | W.PN.CARDCBS ---
Today's Communication / Plan
-
Continue IV Lasix
CT surgery
Impression / Plan
-
PCP:
Primary anatomical embalmer: Previously saw Endy Easley at [facility] but has not been seen there since September 2022. Would like to follow-up with BERNARDINO Lewis at [facility] in future as his father is a patient.
Impression:
NSTEMI
MV CAD
Chest pain/tightness
Elevated troponin
History of inferior [place] 12/2021
Status post RCA stent, 12/2021 as well as stenting of another artery 2 weeks later, obtaining records
Hypertension
Hyperlipidemia
Current smoker
Medication noncompliance
Plan:
#NSTEMI: Progressively increasing chest tightness, elevated troponin
Currently chest pain free on nitro gtt
[facility] 02/21 showing MV CAD
Cont ASA/statin/BB/heparin drip/nitro gtt
Tentatively plan for surgical revascularization
#Acute HFrEF (EF 30-35%): EF newly reduced on echo here
Dyspnea is improved today
Does not appear overtly volume overloaded on exam
Continue gentle IV diuresis
Continue metoprolol and losartan
Postop could transition to Entresto with addition of MRA and SGLT2
49-year-old male with history of inferior NH status post ROBERT to RCA as well as staged stenting of a second artery in 2021, hypertension, hyperlipidemia, smoker, no recent cardiac follow-up, stopped all medications months ago, presents for evaluation
of 1 month history of intermittent chest tightness, progressing in frequency, previously relieved with 1 sublingual nitroglycerin but no relief this morning. Had tightness with associated diaphoresis and chest pain. Presented to ED, first troponin
elevated at 0.061. EKG nonischemic, chest x-ray concerning for increased opacities bilaterally may represent interstitial edema versus pneumonitis.
Progress Note - Service Counselor
Subjective
Date of Service: February 22, 2025
No acute overnight events. Patient resting comfortably in the IVU. Tells me no further chest pain on nitro drip. Is experiencing headaches treated with Tylenol. Breathing is better today. But also experiencing productive cough.
Objective
Labs:
02/22/25 03:49
02/22/25 03:49
Labs
Hgb 12.2 g/dL (13.0-18.0) L 02/22/25 03:49
Hct 36.2 % (39.0-52.0) L 02/22/25 03:49
Plt Count 243 10^3/uL (130-400) 02/22/25 03:49
PT Cancelled 02/22/25 06:00
INR Cancelled 02/22/25 06:00
APTT 42.2 Sec (23.4-35.0) H 02/22/25 11:22
Sodium 136 mmol/L (135-145) 02/22/25 03:49
Potassium 4.1 mmol/L (3.5-5.1) 02/22/25 03:49
BUN 16 mg/dl (9-20) 02/22/25 03:49
Creatinine 1.2 mg/dL (0.7-1.3) 02/22/25 03:49
Glucose 126 mg/dl (70-99) H 02/22/25 03:49
Troponins
02/21/25 02/21/25 02/21/25
08:51 11:45 12:42
Troponin I 0.061 H* Cancelled 0.346 H* D
02/21/25 02/21/25 02/21/25
16:03 19:45 21:11
Troponin I 1.190 H* D Cancelled 2.040 H* D
02/22/25 02/22/25 02/22/25
03:00 03:49 11:22
Troponin I Cancelled 1.360 H* D 0.908 H* D
Vital Signs and I&O:
Vital Signs
Temp Pulse Resp BP Pulse Ox
98.0 F 86 14 134/78 98
02/22/25 11:28 02/22/25 13:30 02/22/25 12:03 02/22/25 11:16 02/22/25 11:28
Vital Signs
Temp Pulse Resp BP Pulse Ox
98.0 F 86 14 134/78 98
02/22/25 11:28 02/22/25 13:30 02/22/25 12:03 02/22/25 11:16 02/22/25 11:28
Intake & Output
02/20/25 02/21/25 02/22/25 02/23/25
06:59 06:59 06:59 06:59
Intake Total 246 / 246 897 / 897
Output Total 1400 / 1400 950 / 950
Balance -1154 / -1154 -53 / -53
Physical Exam
Physical Exam
Gen: NAD, AAOx3
HEENT: NC/AT, sclera anicteric
Neck: No JVD
CV: RRR, NL s1/s2, no M/R/G
Lungs: CTAB
Abd: S/ND
Ext: No LE edema
Skin: Warm, dry
Neuro: Non-focal
[2025-02-22] MEDS: LIPITOR 80 MG PO (18:14)
[2025-02-22 18:30] LABS: APTT 48.8 Sec (23.4-35.0)
[2025-02-22] MEDS: NITROGLYCERIN PREMIX 250 IV (21:28)
[2025-02-23] VITALS (10 sets, daily range): BP systolic 137–156; BP diastolic 77–105; BMI 27.3
--- NOTE | 2025-02-23 00:09 | PTCARENOTE ---
Pt. has no complaints of CP / discomfort so far this shift, NSR on the monitor, VSS. Heparin & Nitro gtt's infusing as per order, medicated with Tylenol for headache with adequate relief obtained. Right groin and radial cath sites WNL. Pt.
sleeping.
[2025-02-23] MEDS: HEPARIN 25000 UNITS/250 ML IV ×2 (01:09→13:28)
[2025-02-23 01:29] LABS: Hematocrit 35.3 % (39.0-52.0); Hemoglobin 12.4 g/dL (13.0-18.0); Mean Corp Hgb Conc. 35.1 g/dL (33.0-37.0); Mean Corpuscular Hgb 27.5 pg (27.0-31.0); Mean Corpuscular Volume 78.3 fL (80.0-94.0); Platelet Count 216 10^3/uL (130-400); Red Blood Cell Count 4.51 10^6/uL (4.70-6.10); Red Cell Dist. Width 13.6 % (11.5-14.5); White Blood Cell Count 8.2 10^3/uL (4.8-10.8)
[2025-02-23 01:48] LABS: APTT 48.1 Sec (23.4-35.0)
[2025-02-23 01:51] LABS: Blood Urea Nitrogen 17 mg/dl (9-20); Calcium 8.9 mg/dl (8.4-10.2); Carbon Dioxide 24 mmol/L (22-30); Chloride 102 mmol/L (98-107); Estimated Creatinine Clearance 83 ml/min; Glucose 144 mg/dl (70-99); Potassium 3.6 mmol/L (3.5-5.1); Sodium 137 mmol/L (135-145); eGFR > 60.00
[2025-02-23] MEDS: TYLENOL 650 MG PO ×3 (03:21→18:13)
[2025-02-23] MEDS: TOPROL XL 25 MG PO ×2 (07:54→20:01)
[2025-02-23] MEDS: NICODERM TRANSDERMAL 21 MG TRANSDERM (07:54)
[2025-02-23] MEDS: COZAAR 50 MG PO (07:55)
[2025-02-23] MEDS: BUSPAR 10 MG PO ×2 (07:55→20:00)
[2025-02-23] MEDS: PROTONIX 40 MG PO (07:55)
[2025-02-23] MEDS: LASIX 40 MG IV (07:55)
--- NOTE | 2025-02-23 08:11 | W.PN.HOSP.TC ---
Today's Communication/Plan
-
CABG tentatively for Monday 02/26 -- as per my communication with Dr. Live today
Aldactone added
Bronchodilators given wheezing
Assessment / Plan
Assessment / Plan
Physical Exam
General: No Apparent Distress, Comfortable and Conversant
HEENT: Normocephalic and Moist mucous membranes
Respiratory: Wheezes
Cardiac: S1/S2 and Regular Rhythm
GI: Soft, Non Tender and Normal Bowel Sounds
Musculoskeletal: No Cyanosis and No Edema
Skin: Warm and Dry
Neuro: Awake, Alert, AO x 3, Nonfocal/grossly intact and Cranial Nerves Intact
Psych: Calm and Intact Judgment/Insight
Assessment/Plan
Presentation with Chest Tightness, progressive
Coronary artery disease status post inferior myocardial infarction and drug-eluting stent RCA at [facility] as well 2nd stent in stage procedure at [facility] in December 2021
Noncompliance with home medications
-Continue Heparin Drip, Aspirin and high-intensity statin
-No signs of bleeding while on Heparin Drip -- Hgb stable
-Nitroglycerin drip to maintain blood pressures less than 140/90 mmHg
-Cardiac cath on 02/21/25 showed significant multivessel coronary artery disease involving the mid RCA and ostial LAD as well as significantly elevated right left-sided filling pressures with normal cardiac output and significantly
elevated systemic vascular resistance
-IV diuresis with Lasix 40 mg daily
-Cardiology consulted
-CT Surgery consulted for CABG evaluation -- tentative CABG with Dr. Endy Nation of [facility] on Monday02/26/25
-Eventual cardiac rehab
Anemia -- Normocytic to Microcytic
-Hgb stable in the upper 12's
-Check iron studies and Vitamin B12
Wheezes
-Ordered bronchodilators
Hypertension
-Patient has not taken his home medications including Toprol XL for months
-Resumed outpatient medications including Toprol
-Hold Amlodipine for now; nitroglycerin being for blood pressure for now
-Low sodium diet when diet resumed
-Add Aldactone
Hyperlipidemia
-Continue high intensity statin
Current smoker
-Tobacco cessation encouraged
Marijuana Use
DVT Prophylaxis: On Heparin Drip
Code Status: Full Code
Anticipated Discharge: > 48 hours
Subjective/Interval History
-
Date of Service: February 23, 2025
Patient was seen and examined. He denied any chest pain, shortness of breath or any other symptoms or complaints.
Objective Data
-
Labs:
Laboratory Results
02/23/25 02/23/25
01:19 08:00
WBC 8.2
Hgb 12.4 L
Hct 35.3 L
Plt Count 216
APTT 48.1 H Pending
Sodium 137
Potassium 3.6
Chloride 102
Carbon Dioxide 24
BUN 17
Creatinine 1.2
Glucose 144 H
Calcium 8.9
Vital Signs:
Vital Signs
Temp Pulse Resp BP Pulse Ox
98.4 F 72 20 143/91 95
02/23/25 07:13 02/23/25 04:00 02/23/25 07:13 02/23/25 01:27 02/23/25 07:13
I&O
02/22/25 02/23/25 02/24/25
06:59 06:59 06:59
Intake Total 246 / 246 1377 / 1377
Output Total 1400 / 1400 1250 / 1250 600 / 600
Balance -1154 / -1154 127 / 127 -600 / -600
[2025-02-23 08:36] LABS: APTT 60.6 Sec (23.4-35.0)
--- NOTE | 2025-02-23 09:28 | PTCARENOTE ---
Assumed care at 0700. Patent complaints of a headache, Tylenol given with some relief, Titrated nitroglycerin gtt to 30mcg/min or 4.5 cc/hr. NSR HR in 70's. Course breath sounds left>right, harsh strong non-productive cough. Heparin infusing per
protocol, call harper in reach
--- NOTE | 2025-02-23 10:24 | W.PN.CARDCBS ---
Today's Communication / Plan
-
Okay to titrate nitro drip down given headache
Increase metoprolol and add spironolactone for better blood pressure control
Impression / Plan
-
PCP:
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 Would like to follow-up with BERNARDINO Lewis at [facility] in future as his father is a patient.
Impression:
NSTEMI
MV CAD
Chest pain/tightness
Elevated troponin
History of inferior [place] 12/2021
Status post RCA stent, 12/2021 as well as stenting of another artery 2 weeks later, obtaining records
Hypertension
Hyperlipidemia
Current smoker
Medication noncompliance
Plan:
#NSTEMI: Progressively increasing chest tightness, elevated troponin
[facility] 02/21 showing MV CAD
Tentatively plan for surgical revascularization
Currently chest pain free on nitro gtt, ok to titrate down given headache
Cont ASA/statin/BB/heparin drip/nitro gtt
#Acute HFrEF (EF 30-35%): EF newly reduced on echo here
Dyspnea is improved
Does not appear overtly volume overloaded on exam
Continue gentle IV diuresis
Continue losartan
Uptitrate metoprolol
Add spironolactone for additonal BP control
Postop could transition to Entresto with addition of SGLT2
49-year-old male with history of inferior [place] status post ROBERT to RCA as well as staged stenting of a second artery in 2021, hypertension, hyperlipidemia, smoker, no recent cardiac follow-up, stopped all medications months ago, presents for evaluation
of 1 month history of intermittent chest tightness, progressing in frequency, previously relieved with 1 sublingual nitroglycerin but no relief this morning. Had tightness with associated diaphoresis and chest pain. Presented to ED, first troponin
elevated at 0.061. EKG nonischemic, chest x-ray concerning for increased opacities bilaterally may represent interstitial edema versus pneumonitis.
Progress Note - Thermal Engineer
Subjective
Date of Service: February 23, 2025
No acute overnight events. Resting comfortably in bed this morning. Some ongoing cough. Also reporting headache from nitro drip.
Objective
Labs:
02/23/25 01:19
02/23/25 01:19
Labs
Hgb 12.4 g/dL (13.0-18.0) L 02/23/25 01:19
Hct 35.3 % (39.0-52.0) L 02/23/25 01:19
Plt Count 216 10^3/uL (130-400) 02/23/25 01:19
PT Cancelled 02/22/25 06:00
INR Cancelled 02/22/25 06:00
APTT 60.6 Sec (23.4-35.0) H 02/23/25 08:15
Sodium 137 mmol/L (135-145) 02/23/25 01:19
Potassium 3.6 mmol/L (3.5-5.1) 02/23/25 01:19
BUN 17 mg/dl (9-20) 02/23/25 01:19
Creatinine 1.2 mg/dL (0.7-1.3) 02/23/25 01:19
Glucose 144 mg/dl (70-99) H 02/23/25 01:19
Troponins
02/21/25 02/21/25 02/21/25
08:51 11:45 12:42
Troponin I 0.061 H* Cancelled 0.346 H* D
02/21/25 02/21/25 02/21/25
16:03 19:45 21:11
Troponin I 1.190 H* D Cancelled 2.040 H* D
02/22/25 02/22/25 02/22/25
03:00 03:49 11:22
Troponin I Cancelled 1.360 H* D 0.908 H* D
Vital Signs and I&O:
Vital Signs
Temp Pulse Resp BP Pulse Ox
98.4 F 84 20 144/91 95
02/23/25 07:13 02/23/25 10:00 02/23/25 07:13 02/23/25 07:14 02/23/25 07:13
Vital Signs
Temp Pulse Resp BP Pulse Ox
98.4 F 84 20 144/91 95
02/23/25 07:13 02/23/25 10:00 02/23/25 07:13 02/23/25 07:14 02/23/25 07:13
Intake & Output
02/21/25 02/22/25 02/23/25 02/24/25
06:59 06:59 06:59 06:59
Intake Total 246 / 246 1377 / 1377
Output Total 1400 / 1400 1250 / 1250 600 / 600
Balance -1154 / -1154 127 / 127 -600 / -600
Physical Exam
Physical Exam
Gen: NAD, AAOx3
HEENT: NC/AT, sclera anicteric
Neck: No JVD
CV: RRR, NL s1/s2, no M/R/G
Lungs: CTAB
Abd: S/ND
Ext: No LE edema
Skin: Warm, dry
Neuro: Non-focal
[2025-02-23] MEDS: DUONEB 3 ML INH (10:55)
[2025-02-23] MEDS: ALDACTONE 12.5 MG PO (11:07)
[2025-02-23 15:54] LABS: APTT 68.8 Sec (23.4-35.0)
[2025-02-23] MEDS: LIPITOR 80 MG PO (18:10)
--- NOTE | 2025-02-23 20:51 | PTCARENOTE ---
Assumed care on pt at 1900, resting in bed w/o any complaints of pain, Nitro gtt infusing at 30mcg/min, pt denies NIEVES, chest pain or SOB at this time. Hep gtt infusing at 25.5ml/h, next ptt @ 2200. NSR on the monitor, HR 90's, 1st dose of toprol xl
25 mg given tonight. Family at bedside, call harper within reach.
[2025-02-23 22:25] LABS: APTT 101.9 Sec (23.4-35.0)
[2025-02-24] VITALS (9 sets, daily range): BP systolic 132–166; BP diastolic 70–107; BMI 27.1
[2025-02-24] MEDS: HEPARIN 25000 UNITS/250 ML IV ×3 (00:28→22:26)
[2025-02-24 05:16] LABS: Hematocrit 38.3 % (39.0-52.0); Hemoglobin 13.6 g/dL (13.0-18.0); Mean Corp Hgb Conc. 35.5 g/dL (33.0-37.0); Mean Corpuscular Hgb 28.4 pg (27.0-31.0); Mean Platelet Volume 9.9 fL (7.4-10.4); Platelet Count 260 10^3/uL (130-400); Red Blood Cell Count 4.79 10^6/uL (4.70-6.10); Red Cell Dist. Width 13.5 % (11.5-14.5); White Blood Cell Count 8.7 10^3/uL (4.8-10.8)
[2025-02-24 05:35] LABS: APTT 113.4 Sec (23.4-35.0)
[2025-02-24 05:58] LABS: Blood Urea Nitrogen 16 mg/dl (9-20); Calcium 9.3 mg/dl (8.4-10.2); Carbon Dioxide 25 mmol/L (22-30); Chloride 103 mmol/L (98-107); Estimated Creatinine Clearance 90 ml/min; Glucose 119 mg/dl (70-99); Iron 48 ug/dl (49-181); Potassium 4.3 mmol/L (3.5-5.1); Sodium 138 mmol/L (135-145); eGFR > 60.00
[2025-02-24 06:07] LABS: Percent Saturation 13 % (20-50); Total Iron Binding Capacity 344 ug/dl (261-462)
[2025-02-24 06:33] LABS: Ferritin 47.4 ng/ml (17.9-464.0)
[2025-02-24 06:47] LABS: Vitamin B12 502 pg/ml (239-931)
--- NOTE | 2025-02-24 07:10 | W.PN.CT ---
Today's Communication / Plan
-
Plan;
-Cont. current management per primary team
-Cont. current meds (ASA, Heparin gtt, NTG gtt, Toprol XL, Lipiror)
-Ongoing medical workup/optimization
-No JENI-I, ARBs, CCB x 48hrs prior to CABG. D/C'd Losartan and increased Toprol dose from 25 BID to 50 BID with parameters
-Will D/C NTG and Heparin gtt bonbon dipper to OR
-For CABG +/- ALEX Clip by Dr. Nation on Monday02/26/25
-Will cont. to closely monitor
Assessment / Plan
-
Assessment:
-Multivessel CAD
-NSTEMI (peak trop 2.04)
-Hx inferior [place] S/P RCA stent, 12/2021
-USA
-ICM
-LVEF 30-35% per echo 02/21/25; was 50-55% per echo 12/2021
-Mild MR/TR
-Hypertension
-Hyperlipidemia
-Current smoker
-Medication noncompliance
Subjective
-
Date of Service: February 24, 2025
Objective Data
-
Lab Results
02/24/25 04:41
02/24/25 04:41
PT Cancelled 02/22/25 06:00
INR Cancelled 02/22/25 06:00
APTT 113.4 Sec (23.4-35.0) H 02/24/25 04:41
Vital Signs
Vital Signs
Temp Pulse Resp BP Pulse Ox
98.5 F 78 18 141/94 95
02/24/25 04:00 02/24/25 06:00 02/24/25 04:00 02/24/25 04:34 02/24/25 04:00
CT Intake/Output/Weight
02/23/25 02/24/25 02/24/25
18:59 06:59 18:59
Intake Total 240 / 1320 1080 / 1320
Output Total 600 / 2250 1650 / 2250
Balance -360 / -930 -570 / -930
SaO2: 95
[2025-02-24] MEDS: LASIX 40 MG IV (08:14)
[2025-02-24] MEDS: PROTONIX 40 MG PO (08:14)
[2025-02-24] MEDS: TOPROL XL 50 MG PO ×2 (08:14→20:45)
[2025-02-24] MEDS: BUSPAR 10 MG PO ×2 (08:14→20:45)
[2025-02-24] MEDS: ALDACTONE 12.5 MG PO ×2 (08:14→10:47)
[2025-02-24] MEDS: NICODERM TRANSDERMAL 21 MG TRANSDERM (08:14)
--- NOTE | 2025-02-24 08:34 | PTCARENOTE ---
Assumed care. Patient comfortable overnight. AO x3. Lungs decreased faint expiratory wheezes, harsh non-productive cough. Denies pain or shortness of breath. SR HR 90, BP 152/95. Nitro gtt at 30mcg/min and Heparin infusing per protocol. Denies chest
pain, dull headache. Eating breakfast, call harper in reach
--- NOTE | 2025-02-24 09:20 | W.PN.CARDCBS ---
Addendum entered and electronically signed by Forrest Blount DO 02/24/25 12:08:
I saw and examined the patient.
The Oyster Sorter's note was reviewed and I agree with the note.
Comment:
Plan:
Increase aldactone to 25 mg for better bp control.
For CABG Wed as per CT surgery
compensated cv status for CABG
Original Note:
Today's Communication / Plan
-
BPs still elevated, will increase Spironolactone to 25 mg daily
tentative CABG on Wed, timing per CT surgery
Impression / Plan
-
PCP:
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 but has not been seen there since September 2022. Would like to follow-up with BERNARDINO Lewis at [facility] in future as his father is a patient.
Impression:
NSTEMI
MV CAD
Chest pain/tightness
Elevated troponin
History of inferior [place] 12/2021
Status post RCA stent, 12/2021 as well as stenting of another artery 2 weeks later, obtaining records
Hypertension
Hyperlipidemia
Current smoker
Medication noncompliance
Cardiovascular diagnostic testing:
Right and left heart cardiac cath 02/21/2025:
RA 13, PA 49/30, PCWP 25, PA sat 60.5%, CO/CI 5.2/2.4, SVR 1567
Left main: No disease
LAD: 80% ostial stenosis, 90% mid stenosis
Left circumflex: Mild luminal irregularities, previously placed stents widely patent, distal to the stent there is a myocardial bridge
RCA: 70% mid stenosis, ostial RPDA 50% ostial stenosis, good distal bypass targets
Echocardiogram: 02/21/2025: LVEF 30 to 35%, hypokinesis inferior lateral, inferior, and inferior septal segments, mild cLVH, stage II diastolic dysfunction, normal RV size, low normal RV systolic function, mild MR, mild TR, PAP 50 to 55 mmHg
Plan:
#NSTEMI: Progressively increasing chest tightness, elevated troponin
[facility] 02/21 showing MV CAD
per CT surgery, plan for surgical revascularization on 02/26/[address] Nation
Currently chest pain free , off nitro gtt (pt was having headache and gtt weaned off)
Cont ASA/statin/BB/heparin drip
Telem personally reviewed: NSR 60s-90s
smoking cessation
#Acute HFrEF (EF 30-35%): EF newly reduced on echo here
Dyspnea is improved
Does not appear overtly volume overloaded on exam
Continue gentle IV diuresis
wt down 10 lbs since admission to 199 lbs today 02/24/2025
Spironolactone added 02/23/2025
Losartan on hold preop
metoprolol succ uptitrated to 50 mg bid
Postop could transition to Entresto with addition of SGLT2
#HTN
BPs remain elevated 140s-160s/90s-100
will uptitrate Spironolactone to 25 mg daily. K 4.3
may need to further uptitrate Metoprolol for better BP control
49-year-old male with history of inferior [place] status post ROBERT to RCA as well as staged stenting of a second artery in 2021, hypertension, hyperlipidemia, smoker, no recent cardiac follow-up, stopped all medications months ago, presents for evaluation
of 1 month history of intermittent chest tightness, progressing in frequency, previously relieved with 1 sublingual nitroglycerin but no relief this morning. Had tightness with associated diaphoresis and chest pain. Presented to ED, first troponin
elevated at 0.061. EKG nonischemic, chest x-ray concerning for increased opacities bilaterally may represent interstitial edema versus pneumonitis.
Progress Note - Resin Painter
Subjective
Date of Service: February 24, 2025
no CP over weekend
NTG weaned off due to headache
Objective
Labs:
02/24/25 04:41
02/24/25 04:41
Labs
Hgb 13.6 g/dL (13.0-18.0) 02/24/25 04:41
Hct 38.3 % (39.0-52.0) L 02/24/25 04:41
Plt Count 260 10^3/uL (130-400) D 02/24/25 04:41
PT Cancelled 02/22/25 06:00
INR Cancelled 02/22/25 06:00
APTT 113.4 Sec (23.4-35.0) H 02/24/25 04:41
Sodium 138 mmol/L (135-145) 02/24/25 04:41
Potassium 4.3 mmol/L (3.5-5.1) 02/24/25 04:41
BUN 16 mg/dl (9-20) 02/24/25 04:41
Creatinine 1.1 mg/dL (0.7-1.3) 02/24/25 04:41
Glucose 119 mg/dl (70-99) H 02/24/25 04:41
Troponins
02/21/25 02/21/25 02/21/25
08:51 11:45 12:42
Troponin I 0.061 H* Cancelled 0.346 H* D
02/21/25 02/21/25 02/21/25
16:03 19:45 21:11
Troponin I 1.190 H* D Cancelled 2.040 H* D
02/22/25 02/22/25 02/22/25
03:00 03:49 11:22
Troponin I Cancelled 1.360 H* D 0.908 H* D
Vital Signs and I&O:
Vital Signs
Temp Pulse Resp BP Pulse Ox
98.5 F 80 16 152/95 96
02/24/25 07:45 02/24/25 08:00 02/24/25 07:45 02/24/25 07:47 02/24/25 07:45
Vital Signs
Temp Pulse Resp BP Pulse Ox
98.5 F 80 16 152/95 96
02/24/25 07:45 02/24/25 08:00 02/24/25 07:45 02/24/25 07:47 02/24/25 07:45
Intake & Output
02/22/25 02/23/25 02/24/25 02/25/25
06:59 06:59 06:59 06:59
Intake Total 246 / 246 1377 / 1377 1320 / 1320
Output Total 1400 / 1400 1250 / 1250 2250 / 2250 100 / 100
Balance -1154 / -1154 127 / 127 -930 / -930 -100 / -100
Physical Exam
Physical Exam
GEN: No distress, awake, Ox3
HEENT: supple, anicteric, mmm
LUNGS: CTA, no wheezes/rales
CV: Reg, S1/S2, no murmur
ABD: soft, BS+, NT/ND
EXT: No edema
NEURO: Gross non-focal
SKIN: No rash
--- NOTE | 2025-02-24 10:11 | CM ---
Reviewed chart. Met with and Mrs. Sprague to review discharge plans. He states prior to admission he resides with his spouse, daughter, mother and father in a one story home without any steps to enter. He states prior to admission he was
independent with ambulation and adls. He states he does not have any DME in the home. He states he has a prescription plan and uses [facility]. Medial work-up in progress. The discharge plan is to return home with his family and a home
visit by the Transitional Care Nurse when medically stable.
--- NOTE | 2025-02-24 10:43 | W.PN.HOSP.TC ---
Today's Communication/Plan
-
for OR on wed
Aldactone dose increased by cards
monitor BP trend
heparin drip per cards/CTS
Assessment / Plan
Assessment / Plan
1. Multivessel coronary artery disease
Chest pain
Combined systolic/diastolic heart failure
- Patient underwent left heart catheterization on 02/21 showing multivessel coronary disease,
- Currently on aspirin/heparin drip
-Echocardiogram showing EF of 30 to 35%, grade 2 diastolic dysfunction. Elevated pulmonary artery pressure of 50 to 55 mmHg.
- Cardiology following and patient being diuresed with IV Lasix
- Cardiothoracic surgery involved in care and patient tentatively plan for bypass on 02/27/2020
2. Essential hypertension -uncontrolled
- On regimen of Toprol/Aldactone
- Aldactone dose increased today as blood pressure remains elevated
3. Wheezing on exam
-No reported history of COPD
- As needed nebulizer therapy
- Bedside PFT showing FEV1/FVC of 87% of predicted and FEV1 of 63% of predicted
4. Hyperlipidemia
-Continue high intensity statin
5 . Current smoker
-Tobacco cessation encouraged
6. Iron deficiency
- Hemoglobin 13.6 MCV of 80
- Ferritin 48, TSAT 13%
Marijuana Use
DVT Prophylaxis: On Heparin Drip
Code Status: Full Code
Anticipated Discharge: > 48 hours
Subjective/Interval History
-
Date of Service: February 24, 2025
Denies any episodes of chest pain/shortness of breath overnight
No other acute issues reported
Objective Data
-
Labs:
Laboratory Results
02/24/25 02/24/25 02/24/25
04:41 06:00 12:10
WBC 8.7
Hgb 13.6
Hct 38.3 L
Plt Count 260 D
APTT 113.4 H Pending
HCO3 Pending
Sodium 138
Potassium 4.3
Chloride 103
Carbon Dioxide 25
BUN 16
Creatinine 1.1
Glucose 119 H
Calcium 9.3
Vital Signs:
Vital Signs
Temp Pulse Resp BP Pulse Ox
98.5 F 80 16 152/95 96
02/24/25 07:45 02/24/25 08:00 02/24/25 07:45 02/24/25 07:47 02/24/25 07:45
I&O
02/23/25 02/24/25 02/25/25
06:59 06:59 06:59
Intake Total 1377 / 1377 1320 / 1320
Output Total 1250 / 1250 2250 / 2250 100 / 100
Balance 127 / 127 -930 / -930 -100 / -100
Review of Systems
-
Respiratory: Reports No Symptoms
Cardiac: Reports No Symptoms
Abdomen/GI: Reports No Symptoms
Physical Exam
-
General: No Apparent Distress and Comfortable
HEENT: Negative Oxygen
Respiratory: Clear to Auscultation
Cardiac: Regular Rhythm and S1/S2; Negative Murmur or Rub
GI: Soft, Nontender and Nondistended
Musculoskeletal: No Edema
Neuro: Awake, Alert, Oriented, No Motor Deficits and Nonfocal/Grossly Intact
Psych: Calm
[2025-02-24] MEDS: NITROGLYCERIN PREMIX 250 IV (10:47)
--- NOTE | 2025-02-24 12:36 | W.PN.UPDATE ---
Update Note
Progress Note Update
STS RISK SCORE
Procedure Type:�Isolated CABG
Perioperative Outcome Estimate %
Operative Mortality 0.801%
Morbidity & Mortality 6.22%
Stroke 0.87%
Renal Failure 0.757%
Reoperation 2.08%
Prolonged Ventilation 3.41%
Deep Sternal Wound Infection 0.136%
Long Hospital Stay (>14 days) 2.21%
Short Hospital Stay (<6 days)* 65.7%
Clinical Summary
Planned Surgery: Isolated CABG, Urgent, First cardiovascular surgery
Demographics: 49 year old, male, 95kg, 183cm, BMI: 28.4 kg/m�
Lab Values: Creatinine: 1.2 mg/dL, Hematocrit: 36.2%, WBC Count: 9.8 10�/�L, Platelet Count: 720377 cells/�L
Substance Abuse: Current smoker
Risk Factors / Comorbidities: Hypertension
Pulmonary RF: Unknown CLD
Cardiac Status: NYHA Class II, Ejection Fraction = 33%
Coronary Artery Disease: 2 vessels diseased, Proximal LAD Stenosis >=70%, Non-ST Elevation OH, OH: 1 to 7 Days
Valve Disease: Mild MR, Mild TR
[2025-02-24 12:57] LABS: B.E. 3.4 mmol/L; HCO3 26.8 mmol/L (21-28); O2 Saturation % 98.2 % (94-98); PCO2 36 mmHg (35-48); PO2 115 mmHg (83-108); pH 7.48 (7.35-7.45)
[2025-02-24 12:58] LABS: O2 Therapy room air
[2025-02-24 13:04] LABS: APTT 94.6 Sec (23.4-35.0)
[2025-02-24] MEDS: TYLENOL 650 MG PO (13:25)
[2025-02-24] MEDS: LIPITOR 80 MG PO (18:32)
[2025-02-24 18:49] LABS: APTT 97.3 Sec (23.4-35.0)
[2025-02-25] VITALS (7 sets, daily range): BP systolic 134–161; BP diastolic 82–106
--- NOTE | 2025-02-25 01:33 | PTCARENOTE ---
Rec'd pt at change of shift. Pt AAO*3, VSS, and SR on TELE monitor. Pt denies any pain or discomfort. Heparin and nitro infusing as ordered. Pt updated on plan of care. See MAR and flowchart for full pt care and assessment.
[2025-02-25 04:31] LABS: Hematocrit 38.2 % (39.0-52.0); Mean Corpuscular Hgb 27.2 pg (27.0-31.0); Mean Corpuscular Volume 79.9 fL (80.0-94.0); Mean Platelet Volume 9.5 fL (7.4-10.4); Platelet Count 263 10^3/uL (130-400); Red Blood Cell Count 4.78 10^6/uL (4.70-6.10); Red Cell Dist. Width 13.5 % (11.5-14.5); White Blood Cell Count 9.3 10^3/uL (4.8-10.8)
[2025-02-25 04:58] LABS: Blood Urea Nitrogen 22 mg/dl (9-20); Calcium 9.4 mg/dl (8.4-10.2); Carbon Dioxide 27 mmol/L (22-30); Chloride 102 mmol/L (98-107); Estimated Creatinine Clearance 76 ml/min; Glucose 126 mg/dl (70-99); Potassium 4.1 mmol/L (3.5-5.1); Sodium 137 mmol/L (135-145); eGFR > 60.00
--- NOTE | 2025-02-25 06:44 | W.PN.CT ---
Today's Communication / Plan
-
Plan;
-Cont. current management per primary team
-Cont. current meds (ASA, Heparin gtt, NTG gtt, Toprol XL, Lipiror)
-Ongoing medical workup/optimization
-No JENI-I, ARBs, CCB x 48hrs prior to CABG. D/C'd Losartan and increased Toprol dose from 25 BID to 50 BID with parameters
-Will D/C NTG and Heparin gtt supervisor concrete pipe plant to OR
-For CABG +/- ALEX Clip by Dr. Nation tomorrow 02/26/25
-Will cont. to closely monitor
Assessment / Plan
-
Assessment:
-Multivessel CAD
-NSTEMI (peak trop 2.04)
-Hx inferior SD S/P RCA stent, 12/2021
-USA
-ICM
-LVEF 30-35% per echo 02/21/25; was 50-55% per echo 12/2021
-Mild MR/TR
-Hypertension
-Hyperlipidemia
-Current smoker
-Medication noncompliance
Discussed patient care with: Cardiology, Nursing, Respiratory Therapy, Pharmacy and Care Team
Subjective
-
Date of Service: February 25, 2025
No issues overnight. Denies CP/SOB
Objective Data
-
Lab Results
02/25/25 04:12
02/25/25 04:12
PT Cancelled 02/22/25 06:00
INR Cancelled 02/22/25 06:00
APTT 100.0 Sec (23.4-35.0) H 02/25/25 04:12
Vital Signs
Vital Signs
Temp Pulse Resp BP Pulse Ox
98.2 F 78 16 147/82 94
02/25/25 03:59 02/25/25 04:02 02/25/25 03:59 02/25/25 04:02 02/25/25 03:59
CT Intake/Output/Weight
02/24/25 02/24/25 02/25/25
06:59 18:59 06:59
Intake Total 1080 / 1320 480 / 480
Output Total 1650 / 2250 100 / 100
Balance -570 / -930 -100 / 380 480 / 380
SaO2: 94 (RA)
Physical Exam
-
General: Awake, Oriented and AOx3
Cardiovascular: Regular rate & rhythm and No Murmurs
Respiratory: Clear
Extremities: No Edema
Data Reviewed
-
Lab Results: Results Reviewed
Medications: Active Meds Reviewed
Chest X-Ray: Report Reviewed and Image Reviewed
ECG: Report Reviewed and Image Reviewed
[2025-02-25] MEDS: PROTONIX 40 MG PO (08:04)
[2025-02-25] MEDS: LASIX 40 MG IV (08:04)
[2025-02-25] MEDS: TOPROL XL 50 MG PO ×2 (08:06→20:17)
[2025-02-25] MEDS: ALDACTONE 25 MG PO (08:06)
[2025-02-25] MEDS: NICODERM TRANSDERMAL 21 MG TRANSDERM (08:06)
[2025-02-25] MEDS: BUSPAR 10 MG PO ×2 (08:06→20:17)
[2025-02-25] MEDS: HEPARIN 25000 UNITS/250 ML IV ×2 (09:57→20:18)
--- NOTE | 2025-02-25 10:00 | PTCARENOTE ---
Assumed care of pt from freight solicitor RN. AAOx3. Independent ambulating in room. NSR on tele, HRs 80s. Heparin gtt infusing at 2450 units/hr. Daily PTT. Nitro gtt infusing at 30mcg/min. Titrate to chest pain free. Pt denies any chest pain. Assessment
documented. Plan for CVOR tomorrow.
--- NOTE | 2025-02-25 12:02 | W.PN.CARDCBS ---
Addendum entered and electronically signed by Forrest Blount DO 02/25/25 13:05:
I saw and examined the patient.
The Hcc Coders's note was reviewed and I agree with the note.
Comment:
Plan:
For CABG tomorrow.
Cont IV Heparin
Smoking cessation has been discussed.
Answered all questions that he and his had
Stable cv status for CABG
Original Note:
Today's Communication / Plan
-
for CABG in AM
Impression / Plan
-
PCP:
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 Would like to follow-up with BERNARDINO Lewis at [facility] in future as his father is a patient.
Impression:
CP
NSTEMI
MV CAD by cath 02/21/25
History of inferior HI 12/2021
Status post RCA stent, 12/2021 as well as stenting of another artery 2 weeks later, obtaining records
Hypertension
Hyperlipidemia
Current smoker
Medication noncompliance
Right and left heart cardiac cath 02/21/2025:
RA 13, PA 49/30, PCWP 25, PA sat 60.5%, CO/CI 5.2/2.4, SVR 1567
Left main: No disease
LAD: 80% ostial stenosis, 90% mid stenosis
Left circumflex: Mild luminal irregularities, previously placed stents widely patent, distal to the stent there is a myocardial bridge
RCA: 70% mid stenosis, ostial RPDA 50% ostial stenosis, good distal bypass targets
Echocardiogram: 02/21/2025: LVEF 30 to 35%, hypokinesis inferior lateral, inferior, and inferior septal segments, mild cLVH, stage II diastolic dysfunction, normal RV size, low normal RV systolic function, mild MR, mild TR, PAP 50 to 55 mmHg
Plan:
- Patient presented with chest discomfort and ruled in for NSTEMI with peak troponin of 2. Underwent cardiac catheterization with multivessel CAD. Has prior inferior HI status post RCA PCI in 2021
- Planned for CABG 02/26/[address] Nation
- Continue aspirin, statin, Toprol, IV heparin
- In sinus rhythm on review of telemetry overnight
- No significant carotid stenosis bilaterally by ultrasound
- EF by echocardiogram newly reduced at 30 to 35%. on IV Lasix 40 mg daily, Cr up to 1.3, will hold. Was not on diuretic prior to admission.
- Losartan on hold preoperatively. Continue Toprol, spironolactone. Would consider for Entresto as well as SGLT2 inhibitor postoperatively as blood pressures will tolerate, currently remain elevated. IV lopressor PRN ordered
- will need follow up echo post revascularization to reassess EF
- Smoking cessation advised. currently on nicotine patch
- Discussed with patient's at bedside
HPI:49-year-old male with history of inferior HI status post ROBERT to RCA as well as staged stenting of a second artery in 2021, hypertension, hyperlipidemia, smoker, no recent cardiac follow-up, stopped all medications months ago, presents for
evaluation of 1 month history of intermittent chest tightness, progressing in frequency, previously relieved with 1 sublingual nitroglycerin but no relief this morning. Had tightness with associated diaphoresis and chest pain. Presented to ED,
first troponin elevated at 0.061. EKG nonischemic, chest x-ray concerning for increased opacities bilaterally may represent interstitial edema versus pneumonitis.
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
Subjective
Date of Service: February 25, 2025
resting comfortably
Objective
Labs:
02/25/25 04:12
02/25/25 04:12
Labs
Hgb 13.0 g/dL (13.0-18.0) 02/25/25 04:12
Hct 38.2 % (39.0-52.0) L 02/25/25 04:12
Plt Count 263 10^3/uL (130-400) 02/25/25 04:12
PT Cancelled 02/22/25 06:00
INR Cancelled 02/22/25 06:00
APTT Cancelled 02/25/25 06:00
Sodium 137 mmol/L (135-145) 02/25/25 04:12
Potassium 4.1 mmol/L (3.5-5.1) 02/25/25 04:12
BUN 22 mg/dl (9-20) H 02/25/25 04:12
Creatinine 1.3 mg/dL (0.7-1.3) 02/25/25 04:12
Glucose 126 mg/dl (70-99) H 02/25/25 04:12
Vital Signs and I&O:
Vital Signs
Temp Pulse Resp BP Pulse Ox
98 F 82 16 151/104 95
02/25/25 07:09 02/25/25 08:04 02/25/25 07:09 02/25/25 08:04 02/25/25 07:09
Vital Signs
Temp Pulse Resp BP Pulse Ox
98 F 82 16 151/104 95
02/25/25 07:09 02/25/25 08:04 02/25/25 07:09 02/25/25 08:04 02/25/25 07:09
Intake & Output
02/23/25 02/24/25 02/25/25 02/26/25
07:59 07:59 07:59 07:59
Intake Total 720 / 720 1320 / 1320 480 / 480
Output Total 1650 / 1650 1750 / 1750 225 / 225
Balance -930 / -930 -430 / -430 480 / 480 -225 / -225
Physical Exam
Physical Exam
GEN: No distress, resting comfortably
HEENT: supple, mmm
LUNGS: no audible wheezes
CV: Reg rhythm on tele
EXT: No edema
SKIN: Warm, pink, dry. No rash
--- NOTE | 2025-02-25 14:32 | W.PN.HOSP.TC ---
Today's Communication/Plan
-
for cabg tomorrow
heparin drip per cardio/CTS
Assessment / Plan
Assessment / Plan
1. Multivessel coronary artery disease
Chest pain
Combined systolic/diastolic heart failure
- Patient underwent left heart catheterization on 02/21 showing multivessel coronary disease,
- Currently on aspirin/heparin drip
-Echocardiogram showing EF of 30 to 35%, grade 2 diastolic dysfunction. Elevated pulmonary artery pressure of 50 to 55 mmHg.
- Cardiology following and patient being diuresed with IV Lasix
- Cardiothoracic surgery involved in care and patient tentatively plan for bypass on 02/27/2020
2. Essential hypertension -uncontrolled
- On regimen of Toprol/Aldactone
- Aldactone dose increased today as blood pressure remains elevated
3. Wheezing on exam
-No reported history of COPD
- As needed nebulizer therapy
- Bedside PFT showing FEV1/FVC of 87% of predicted and FEV1 of 63% of predicted
4. Hyperlipidemia
-Continue high intensity statin
5 . Current smoker
-Tobacco cessation encouraged
6. Iron deficiency
- Hemoglobin 13.6 MCV of 80
- Ferritin 48, TSAT 13%
Marijuana Use
DVT Prophylaxis: On Heparin Drip
Code Status: Full Code
Anticipated Discharge: > 48 hours
Subjective/Interval History
-
Date of Service: February 25, 2025
No issues overnight
Objective Data
-
Labs:
Laboratory Results
02/25/25 02/25/25
04:12 06:00
WBC 9.3
Hgb 13.0
Hct 38.2 L
Plt Count 263
APTT 100.0 H Cancelled
Sodium 137
Potassium 4.1
Chloride 102
Carbon Dioxide 27
BUN 22 H
Creatinine 1.3
Glucose 126 H
Calcium 9.4
Vital Signs:
Vital Signs
Temp Pulse Resp BP Pulse Ox
99.2 F 84 20 134/88 98
02/25/25 11:00 02/25/25 13:00 02/25/25 11:00 02/25/25 11:23 02/25/25 11:00
I&O
02/24/25 02/25/25 02/26/25
06:59 06:59 06:59
Intake Total 1320 / 1320 480 / 480
Output Total 2250 / 2250 100 / 100 225 / 225
Balance -930 / -930 380 / 380 -225 / -225
Review of Systems
-
Respiratory: Reports No Symptoms
Cardiac: Reports No Symptoms
Abdomen/GI: Reports No Symptoms
Physical Exam
-
General: No Apparent Distress and Comfortable
HEENT: Negative Oxygen
Respiratory: Clear to Auscultation
Cardiac: Regular Rhythm and S1/S2; Negative Murmur or Rub
GI: Soft, Nontender and Nondistended
Musculoskeletal: No Edema
Neuro: Awake, Alert, Oriented, No Motor Deficits and Nonfocal/Grossly Intact
Psych: Calm
--- NOTE | 2025-02-25 15:20 | CM ---
Reviewed chart. Met with and Mrs. Sprague to review discharge plans. Prior to admission he resides with his spouse, daughter and parents in a one story home without any steps to enter. Prior to admission he was independent with ambulation and
adls. He does not have any DME in the home. He has a prescription plan and uses [facility]. Medical work-up in progress The discharge plan is to return home with his family and a home visit by the Transitional Care Nurse when medically
stable.
We reviewed pre-op and post-op routines. We briefly reviewed the shower instructions. We also reviewed restrictions including sternal precautions and driving restrictions. We discussed a home visit by the Transitional Care Nurse. He is agreeable
to a home visit. The plan is for CABG on Monday02/26/25.
--- NOTE | 2025-02-25 17:00 | PTCARENOTE ---
Patient transferred from IVU to CVICU in preperation for planned CABG in AM.
Remains on Heparin gtt at 2450 units, Nitro gtt at 30mcg/min. Ambulated from IVU to CVICU with no chest pain/SOB.
[2025-02-25] MEDS: LIPITOR 80 MG PO (17:07)
--- NOTE | 2025-02-25 20:00 | PTCARENOTE ---
Assumed care of patient at 1900. Patient found resting in bed at time of assessment with family at bedside. Patient is AOx4, follows commands appropriately, moves all extremities. Lung sounds are clear and eequal bilaterally, saO2 95% on RA. Heart
sounds are audible, patient is SR on the monitor, normal palpable pulses, and no observable edema. Patient has active BS in all four quadrants patient is independent and voids without difficulty. Patient has R groing puncture that is scabbed [employer]OO[employer].
There is a R AC PIV receiving both heparin and nitro. Patient has no complaints at this time. Call harper within reach.
[2025-02-25] MEDS: TYLENOL 650 MG PO (22:08)
[2025-02-26] VITALS (12 sets, daily range): BP systolic 112–173; BP diastolic 78–110; BMI 26.9
--- NOTE | 2025-02-26 | PTCARENOTE ---
Patient reassessed. VSS. No c/o pain. Patient surgically clipped and given CHG bath per protocol. Reinforced NPO PMN. Call harper within reach. Remains SR on the monitor.
[2025-02-26 04:37] LABS: Hemoglobin 13.6 g/dL (13.0-18.0); Mean Corpuscular Hgb 27.1 pg (27.0-31.0); Mean Corpuscular Volume 79.7 fL (80.0-94.0); Mean Platelet Volume 9.7 fL (7.4-10.4); Platelet Count 293 10^3/uL (130-400); Red Blood Cell Count 5.02 10^6/uL (4.70-6.10); Red Cell Dist. Width 13.4 % (11.5-14.5); White Blood Cell Count 9.3 10^3/uL (4.8-10.8)
[2025-02-26 04:55] LABS: APTT 130.9 Sec (23.4-35.0)
[2025-02-26 05:39] LABS: Blood Urea Nitrogen 23 mg/dl (9-20); Calcium 9.9 mg/dl (8.4-10.2); Carbon Dioxide 25 mmol/L (22-30); Chloride 103 mmol/L (98-107); Estimated Creatinine Clearance 83 ml/min; Glucose 132 mg/dl (70-99); Potassium 3.9 mmol/L (3.5-5.1); Sodium 138 mmol/L (135-145); eGFR > 60.00
--- NOTE | 2025-02-26 06:08 | W.CVOR.SURPR ---
CVOR Surgeon Immed Pre Op
-
I have examined this patient prior to performance of the scheduled procedure.
The patient's condition is unchanged from the time of the dictated/written History and
Physical and the patient is able to undergo the scheduled procedure.
--- NOTE | 2025-02-26 06:43 | PTCARENOTE ---
Patient reassessed. VSS. Remains SR to SB on the monitor. Second CHG bath completed. AM labs obtained. Heparin gtt titrated per protocol. Patient NPO PMN in preparation for surgery today. Call harper within reach.
[2025-02-26] MEDS: HEPARIN 25000 UNITS/250 ML IV (07:53)
--- NOTE | 2025-02-26 08:07 | PTCARENOTE ---
Received pt from septic cleaner RN; pt AAOx3 and resting comfortably in bed and ambulating in room; PIV x1 patent; Heparin and Nitro infusing see flow sheet for details; Lungs clear; positive bowel sounds; pt voiding yellow urine; palpable pulses
throughout and no edema noted; see nursing documentation for further details.
[2025-02-26] MEDS: ALDACTONE PO (09:25)
[2025-02-26] MEDS: TOPROL XL PO (09:26)
[2025-02-26] MEDS: PROTONIX PO (09:26)
[2025-02-26] MEDS: BUSPAR PO ×2 (09:26→20:40)
[2025-02-26] MEDS: NICODERM TRANSDERMAL TRANSDERM (09:26)
[2025-02-26 12:02] LABS: APTT 135.7 Sec (23.4-35.0)
[2025-02-26] MEDS: MAGNESIUM OXIDE 500 MG PO (12:06)
[2025-02-26] MEDS: LOPRESSOR 25 MG PO (12:06)
[2025-02-26] MEDS: PROTONIX 40 MG PO (12:06)
[2025-02-26] MEDS: BACTROBAN 2% OINTMENT 1 APPLIC NASAL ×2 (12:06→20:38)
--- NOTE | 2025-02-26 13:01 | PTCARENOTE ---
Patient sent to CVOR via bed; family sent to waiting area.
[2025-02-26 13:52] LABS: ACT+ - POC 107 Seconds (82-134)
[2025-02-26 14:08] LABS: Urine Albumin 2+ (Neg - Trace); Urine Bilirubin Negative (Negative); Urine Character Clear (Clear); Urine Color Yellow; Urine Glucose Negative (Negative); Urine Ketone Negative (Negative); Urine Leukocyte 2+ (Negative); Urine Nitrite Negative (Negative); Urine Occult Blood Negative (Negative); Urine Urobilinogen 1+ (Neg - 1+)
[2025-02-26 14:18] LABS: Urine Squamous Cell >30 /LPF (Few)
[2025-02-26 14:19] LABS: Urine Bacteria Few (Negative); Urine Red Blood Cell 0-2 /HPF (0-2)
[2025-02-26 15:23] LABS: ACT+ - POC 414 Seconds (82-134)
--- NOTE | 2025-02-26 15:32 | CM ---
CM following for DC planning needs.
Pt. in OR today for CT Surgery.
Reviewed initial assessment. PT. resides w/ spouse + dtr. in a private, [address] without any steps to enter. Pt. is functionally indep. w/ ADLs, mobility without any assisted device.
Antic. DC to home w/ CT Transitional Care RN.
CM to follow.
[2025-02-26 15:48] LABS: B.E. - POC 0.2 mmol/L; Glucose - POC 86 mg/dl (70-99); HCO3 - POC 26 mmol/L (21-28); Hematocrit - POC 41 % PCV (42-52); Hemodilution- POC No; Hemoglobin Calculated - POC 14.1; Ionized Calcium - POC 1.17 mmol/L (1.15-1.33); Lactate - POC 0.49 mmol/L (0.36-0.75); O2 Saturation %Calculated-POC 99.8 % (94-98); PCO2 - POC 46 mmHg (35-48); PO2 - POC 237 mmHg (83-108); POC Comment PRE; Potassium - POC 4.6 mmol/L (3.5-5.1); Sodium - POC 140 mmol/L (136-145); Specimen Type - POC Arterial; pH - POC 7.36 (7.35-7.45)
[2025-02-26 15:55] LABS: ACT+ - POC 472 Seconds (82-134)
[2025-02-26 15:59] LABS: B.E. - POC 1.6 mmol/L; Glucose - POC 130 mg/dl (70-99); HCO3 - POC 30 mmol/L (21-28); Hematocrit - POC 33 % PCV (42-52); Hemodilution- POC Yes; Hemoglobin Calculated - POC 11.1; Ionized Calcium - POC 1.07 mmol/L (1.15-1.33); Lactate - POC 0.82 mmol/L (0.36-0.75); O2 Saturation %Calculated-POC 99.3 % (94-98); PCO2 - POC 64 mmHg (35-48); PO2 - POC 171 mmHg (83-108); POC Comment CPB; Potassium - POC 5.9 mmol/L (3.5-5.1); Sodium - POC 134 mmol/L (136-145); Specimen Type - POC Arterial; pH - POC 7.27 (7.35-7.45)
--- NOTE | 2025-02-26 16:03 | CON.INTV ---
Consultation
Consultation Request
Date/Time Consultation Requested: 02/26/25-4:30 PM
Date/Time Consultation Performed: 02/26/25-5 p.m.
Requesting Provider: Dr. Nation
Performing Provider: Dr. Palmer
Reason for Consultation: postoperative ventilator/critical care management
Medical History
-
Chief Complaint: CAD
History of Present Illness:
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 The
patient was seen postoperatively in the cardiovascular intensive care unit. Patient was successfully extubated. There is some pain control issues. He does not complain of any shortness of breath this morning at rest, abdominal pain or focal
weakness..
Past Medical History
Past Medical History: None ( Hypertension. Hyperlipidemia. Cigarette smoker. CAD/stent.)
Social History
Tobacco: Smoker
Drug: Marijuana
Living: With Family
Occupational Exposures: No known asbestos exposure
Environmental Exposures: no known tuberculosis exposure
Family History
Family History: Reviewed & Not Pertinent
Allergies / Home Medications
Allergies
Allergy/AdvReac Type Severity Reaction Status Date / Time
No Known Allergies Allergy Verified 02/21/25 08:26
Home Medications
�Medication �Instructions �Recorded �Confirmed �Last Taken �Type
nitroglycerin 0.4 mg sublingual 0.4 mg sublingual [id number] PRN 11/22/23 02/21/25 11/20/23 History
tablet chest pain
omeprazole 20 mg capsule,delayed 20 mg PO DAILY 11/22/23 02/21/25 2 Months Ago History
release ~12/24/24
buspirone 10 mg tablet 10 mg PO BID 02/21/25 02/21/25 2 Months Ago History
~12/24/24
metoprolol succinate 25 mg 25 mg PO DAILY 02/21/25 02/21/25 2 Months Ago History
tablet,extended release 24 hr ~12/24/24
sertraline 50 mg tablet 50 mg PO DAILY 02/21/25 02/21/25 2 Months Ago History
~12/24/24
Review of Systems
-
Unable to Obtain full review of systems at this time due to: Patient Intubation
Vitals / Labs / Diagnostic Testing
Vital Signs
Temp Pulse Resp BP Pulse Ox
98 F 70 20 135/96 97
02/26/25 11:42 02/26/25 12:06 02/26/25 11:42 02/26/25 12:06 02/26/25 11:42
Lab Data
02/26/25 04:17
02/26/25 04:18
Laboratory Results
02/26/25 02/26/25
04:18 11:34
APTT 130.9 H 135.7 H
Diagnostic Testing:
Physical Exam
-
Exam:
well-nourished and well-developed in no apparent distress
HEENT-atraumatic, normocephalic, oral tracheal intubation
Heart-regular rate and rhythm-no murmurs, rubs or gallops
Chest-clear to auscultation, no wheezes, crackles, median sternotomy bandage is not removed
Abdomen soft nondistended
Extremities-no cyanosis, clubbing, edema and good peripheral pulses
Integument-intact, no rashes, lesions or ecchymosis
Neurologically not alert, not oriented, not moving any of his extremities sedated on a ventilator
Assessment
-
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
Multivessel CAD with a history of stent and preoperative reduced EF 30-35%
Status post CABG-Dr. Nation-02/26/25
Mild hyperglycemia
Mucous plugging
Conditions present prior to admission:
Hypertension.
Hyperlipidemia.
Cigarette smoker.
Mucous plugging and bronchiectasis
Pulmonary nodule-incidentally noted [address] chest 02/22/25
CAD/stent.
Plan
Tolerated extubation
Wean FiO2
Incentive spirometry encourage
Flutter if needed
Patient's CT chest with significant secretions and mucous plugging
Mucus clearing devices once extubated
Aspiration precautions
Mucolytic's as needed
Nebulizers as needed
Pulmonary artery catheter parameters will be followed
Pressors/antihypertensive/inotropes/diuretics will be provided as needed-wean dobutamine
Monitor chest tube output
Monitor hemoglobin
Monitor platelet count and coags
Transfuse blood product if needed
CT surgery following chest tubes
Colchicine started for pericarditis/rub
Diuresis as tolerated
Monitor renal function, electrolytes, intake/output, lower extremity edema and weight
Replace electrolytes as needed
Monitor blood sugar
Insulin drip per protocol
Aspiration precautions
VAP prevention protocol
DVT prophylaxis
Early nutrition
Early mobilization
Outpatient pulmonary [id number] cessation counseling, follow-up CT chest, PFTs
Critical care statement: A total of 55 minutes of critical care time was provided for this patient today. This includes management of ventilator, spontaneous breathing trial, arterial blood gases, pressors, of unstable vital signs, evaluation of the
patient at bedside, reviewing the patient's pertinent medical records including radiographs, microbiology, laboratory evaluations, and discussion with primary team and critical care nursing.
Diagnostic data:
Chest x-ray 04/27/2019-NAD
Chest x-ray 02/21/25-increased interstitial opacifications bilaterally with scattered nodular densities
CT chest abdomen and pelvis 06/11/2020-no evidence of solid organ contusion or laceration, contusion of the left lateral chest and upper abdomen wall regions, mild bronchiectasis and mucous plugging left lower lobe, small hiatal hernia, left adrenal
mass consistent with fat-containing adenoma, no suspicious adenopathy within the chest, no lung parenchymal abnormalities
CT chest 02/22/25-branching tubular opacifications consistent with chronic mucous plugging left lower lobe-increased from 2019, stent in circumflex and right coronary arteries, incidental 2 mm nodule right upper lobe
Echocardiogram 02/21/25-EF 30-35%, stage II diastolic dysfunction, mild mitral regurgitation, PA systolic 50-55
Cardiac catheterization 02/21/25-significant multivessel CAD involving mid RCA and ostial LAD
Data Reviewed
-
PFT: Report reviewed by me
EKG: Report reviewed by me
Radiology: Report reviewed by me
Medical Tests (Nuc Med, Echo etc): Report reviewed by me
Labs: Labs reviewed by me
Old Records: Reviewed
Critical Care Time (in minutes): 55
[2025-02-26 16:08] LABS: ACT+ - POC 486 Seconds (82-134)
[2025-02-26 16:31] LABS: B.E. - POC 1.8 mmol/L; Glucose - POC 130 mg/dl (70-99); HCO3 - POC 27 mmol/L (21-28); Hematocrit - POC 32 % PCV (42-52); Hemodilution- POC Yes; Ionized Calcium - POC 1.04 mmol/L (1.15-1.33); Lactate - POC 0.64 mmol/L (0.36-0.75); O2 Saturation %Calculated-POC 99.9 % (94-98); PCO2 - POC 46 mmHg (35-48); PO2 - POC 323 mmHg (83-108); POC Comment CPB; Potassium - POC 6.9 mmol/L (3.5-5.1); Sodium - POC 134 mmol/L (136-145); Specimen Type - POC Arterial; pH - POC 7.38 (7.35-7.45)
[2025-02-26 16:38] LABS: ACT+ - POC 485 Seconds (82-134)
[2025-02-26 16:42] LABS: B.E. - POC -0.2 mmol/L; Glucose - POC 248 mg/dl (70-99); HCO3 - POC 26 mmol/L (21-28); Hematocrit - POC 32 % PCV (42-52); Hemodilution- POC Yes; Ionized Calcium - POC 1.08 mmol/L (1.15-1.33); Lactate - POC 1.54 mmol/L (0.36-0.75); O2 Saturation %Calculated-POC 99.2 % (94-98); PCO2 - POC 49 mmHg (35-48); PO2 - POC 156 mmHg (83-108); POC Comment CPB; Potassium - POC 5.8 mmol/L (3.5-5.1); Sodium - POC 133 mmol/L (136-145); Specimen Type - POC Arterial; pH - POC 7.33 (7.35-7.45)
[2025-02-26 16:52] LABS: ACT+ - POC 504 Seconds (82-134)
[2025-02-26 17:17] LABS: B.E. - POC -0.3 mmol/L; Glucose - POC 197 mg/dl (70-99); HCO3 - POC 26 mmol/L (21-28); Hematocrit - POC 42 % PCV (42-52); Hemodilution- POC Yes; Hemoglobin Calculated - POC 14.3; Lactate - POC 2.01 mmol/L (0.36-0.75); O2 Saturation %Calculated-POC 99.6 % (94-98); PCO2 - POC 46 mmHg (35-48); PO2 - POC 192 mmHg (83-108); POC Comment WARM; Potassium - POC 5.6 mmol/L (3.5-5.1); Sodium - POC 134 mmol/L (136-145); Specimen Type - POC Arterial; pH - POC 7.36 (7.35-7.45)
[2025-02-26 17:24] LABS: ACT+ - POC 500 Seconds (82-134)
[2025-02-26 18:09] LABS: B.E. - POC -2.8 mmol/L; Glucose - POC 165 mg/dl (70-99); HCO3 - POC 23 mmol/L (21-28); Hematocrit - POC 37 % PCV (42-52); Hemodilution- POC Yes; Hemoglobin Calculated - POC 12.5; Ionized Calcium - POC 1.09 mmol/L (1.15-1.33); Lactate - POC 2.67 mmol/L (0.36-0.75); O2 Saturation %Calculated-POC 99.3 % (94-98); PCO2 - POC 43 mmHg (35-48); PO2 - POC 162 mmHg (83-108); POC Comment CPB; Potassium - POC 5.5 mmol/L (3.5-5.1); Sodium - POC 137 mmol/L (136-145); Specimen Type - POC Arterial; pH - POC 7.33 (7.35-7.45)
[2025-02-26 18:11] LABS: ACT+ - POC 118 Seconds (82-134)
--- NOTE | 2025-02-26 18:42 | W.IMMPOSTOP ---
Addendum entered and electronically signed by Endy Nation MD 02/26/25 19:49:
[id number]
Original Note:
Surgical Immed Post Op Note
-
CARDIAC SURGERY OPERATIVE NOTE:
Preoperative Dx:
Hx of inferior NV in 2021 s/p RCA stent and LCx stent
Reduced LVEF 30-35%
Acute NSTEMI
MVCAD
Hx of medical non-compliance
Active smoking
HTN
HLD
Postoperative Dx:
Same
Procedures:
1) Median sternotomy
2) Takedown of MATTEO (narrow pedicle)
3) Endoscopic harvest/prep of RLE GSV
4) CABG x 3 (MATTEO to LAD, GSV to RPDA, GSV to RPLB)
5) ELAA w/ 35mm AtriClip
Surgeon:
Endy Nation M.D.
Assistants:
J Carlos Galvan P.A.-C.; certified physician's assistant throughout
Valarie Rodas P.A.-CSen; endoscopic harvest/prep of RLE GSV
Anesthesia:
Zhen Kat M.D.
Perfusion:
Parker BorgesC.PSen; CPB: 134min, XC: 93min
Findings:
MATTEO was healthy appearing conduit w/ extremely brisk blood flow; ELD 2.5mm
GSV was healthy conduit w/ slightly smallter than typical ELD 3.0-3.5mm
LAD was only visible at the apical segment and took a deep intramyocardial course proximally. Distal midpoint of LAD identified under approximately 4-5mm of myocardium, normal desai at this location, ELD 1.50mm - anastomosis aided w/ placement of
1.0 intracoronary shunt; anastomosis completed w/ 8-0 prolene - excellent flow
RPDA was visible on the epicardial surface, scattered calcifications, thickened desai, ELD 2.50mm - excellent flow
RPLB was visible on the epicardial surface, scattered calcifications, ELD 2.50mm - excellent flow
Small ALEX w/ windsock morphology successfully occluded at its base - confirmed w/ MABEL
Post-MABEL: LVEF 30-35%, mild RV dysfunction, [id number] MR, mild TR, ALEX confirmed excluded
Implants:
AtriClip 35mm
CT x 4 (B/L pleural, inferior mediastinal, superior mediastinal)
Sternal wires x 7
Sternal 'Square' plates x 2 (4 - 12mm and 4 - 10mm screws)
Complications:
No significant complications
Despite isoelectric cardioplegic arrest after only 280mL, after 1200mL initial dose the heart was not as cool as typical
Cardioplegia redosed through distals and prior to MATTEO to LAD anastomosis
Condition:
83 sinus (-2.9/-1.3), 101/64, 63/31, CVP 16; CO/CI: 4.2/2.0
GTTS: levophed 8, precedex 0.5, dobutamine 5, vasopressin 0.02, insulin 1
Stable/guarded to CVICU
[2025-02-26 19:04] LABS: B.E. - POC -4.3 mmol/L; Glucose - POC 146 mg/dl (70-99); HCO3 - POC 23 mmol/L (21-28); Hematocrit - POC 34 % PCV (42-52); Hemodilution- POC Yes; Hemoglobin Calculated - POC 11.7; Ionized Calcium - POC 1.21 mmol/L (1.15-1.33); Lactate - POC 2.05 mmol/L (0.36-0.75); O2 Saturation %Calculated-POC 99.8 % (94-98); PCO2 - POC 50 mmHg (35-48); PO2 - POC 273 mmHg (83-108); POC Comment POST; Potassium - POC 4.4 mmol/L (3.5-5.1); Sodium - POC 139 mmol/L (136-145); Specimen Type - POC Arterial; pH - POC 7.27 (7.35-7.45)
--- NOTE | 2025-02-26 19:15 | PTCARENOTE ---
received pt from [facility] @ 1900 s/p CABGx3 & LAAL. pt intubated, sedated on precedex. ETT size 8.0, 22 cm at the lip. SR on tele-monitor. no temp pacing wires. R IJ cordis w/ swan floated to 45 cm. L radial a-line. all lines leveled, zeroed, flushed.
CTx4 (R & L pleural, mediastinal x2) to -20cm wall suction, draining sanguineous drainage. rub heard on auscultation. abd s/n, hypoactive BS. coude catheter draining clear, yellow urine. all surgical sites stable, CDI. PIV x2 intact. see worklist
for complete nursing assessment, interventions, gtt titrations, VS, and I&Os.
[2025-02-26 19:17] LABS: Glucose - Point of Care 164 mg/dl (70-99)
[2025-02-26 19:25] LABS: B.E. -0.3 mmol/L; HCO3 25.4 mmol/L (21-28); PCO2 45 mmHg (35-48); PO2 177 mmHg (83-108); Potassium 4.1 mMOL/L (3.5-5.1); Sodium 134 mMOL/L (136-145); pH 7.36 (7.35-7.45)
[2025-02-26 19:27] LABS: Hemoglobin 11.2 g/dL (13.0-18.0); Platelet Count 153 10^3/uL (130-400)
[2025-02-26 19:28] LABS: Mixed Venous O2 Saturation 76.9 %
[2025-02-26] MEDS: NSS 500 IV (19:31)
[2025-02-26] MEDS: CALCIUM GLUCONATE 100 IV (19:31)
[2025-02-26] MEDS: ANCEF 10 IV ×2 (19:32)
[2025-02-26 19:33] LABS: INR 1.18; PT 15.6 Sec (11.4-14.6)
[2025-02-26 19:34] LABS: APTT 27.5 Sec (23.4-35.0)
[2025-02-26 19:37] LABS: Blood Urea Nitrogen 24 mg/dl (9-20); Estimated Creatinine Clearance 66 ml/min; Glucose 159 mg/dl (70-99)
[2025-02-26 20:14] LABS: Glucose - Point of Care 138 mg/dl (70-99)
[2025-02-26] MEDS: LIPITOR PO (20:31)
[2025-02-26] MEDS: NOVOLOG FLEXPEN SC (20:32)
[2025-02-26] MEDS: NEURONTIN PO ×2 (20:32→21:28)
[2025-02-26] MEDS: PACERONE PO ×2 (20:32→21:28)
[2025-02-26] MEDS: SENOKOT-S PO (20:40)
[2025-02-26 21:09] LABS: B.E. -0.4 mmol/L; HCO3 24.8 mmol/L (21-28); Ionized Calcium 1.21 mMOL/L (1.15-1.33); O2 Saturation % 98.2 % (94-98); PCO2 42 mmHg (35-48); PO2 97 mmHg (83-108); Potassium 4.3 mMOL/L (3.5-5.1); pH 7.38 (7.35-7.45)
[2025-02-26 21:09] LABS: Glucose - Point of Care 139 mg/dl (70-99)
[2025-02-26 21:11] LABS: Mixed Venous O2 Saturation 63.8 %
[2025-02-26] MEDS: TYLENOL PO (21:28)
[2025-02-26] MEDS: DILAUDID 0.25 MG IV (21:43)
[2025-02-26 22:08] LABS: Glucose - Point of Care 122 mg/dl (70-99)
[2025-02-26] MEDS: OFIRMEV 100 IV (22:50)
[2025-02-26 23:13] LABS: Glucose - Point of Care 97 mg/dl (70-99)
[2025-02-26 23:18] LABS: B.E. 0 mmol/L; HCO3 24.8 mmol/L (21-28); Ionized Calcium 1.17 mMOL/L (1.15-1.33); O2 Saturation % 98.8 % (94-98); PCO2 40 mmHg (35-48); PO2 103 mmHg (83-108); Potassium 4.5 mMOL/L (3.5-5.1)
[2025-02-26 23:26] LABS: Hematocrit 35.2 % (39.0-52.0); Hemoglobin 11.9 g/dL (13.0-18.0); Platelet Count 185 10^3/uL (130-400)
--- NOTE | 2025-02-26 23:35 | PTCARENOTE ---
pt placed on CPAP/PSV mode by RT.
[2025-02-27] VITALS (39 sets, daily range): BP systolic 106–168; BP diastolic 70–125; BMI 28.0
--- NOTE | 2025-02-27 00:15 | PTCARENOTE ---
pt drowsy, ALVAREZ equally, following commands appropriately. CPAP/PSV on ventilator. CPAP ABG sent. CT drainage WNL. U/O >0.5ml/kg/h.
[2025-02-27 00:18] LABS: Glucose - Point of Care 128 mg/dl (70-99)
[2025-02-27 00:29] LABS: B.E. -0.4 mmol/L; HCO3 24.8 mmol/L (21-28); O2 Saturation % 98.5 % (94-98); PCO2 42 mmHg (35-48); PO2 101 mmHg (83-108); pH 7.38 (7.35-7.45)
--- NOTE | 2025-02-27 00:40 | PTCARENOTE ---
pt extubated at 0040 by RT to 6 L NC. POX 98%.
[2025-02-27] MEDS: DILAUDID 0.25 MG IV ×2 (00:46→03:18)
[2025-02-27] MEDS: LOW STRENGTH ASPIRIN 81 MG PO ×2 (01:45→07:04)
[2025-02-27 01:53] LABS: Glucose - Point of Care 129 mg/dl (70-99)
[2025-02-27] MEDS: DILAUDID 0.5 MG IV ×2 (02:02→05:02)
[2025-02-27] MEDS: ANCEF 5 IV ×3 (02:02→18:20)
[2025-02-27] MEDS: FLEXERIL 5 MG PO (03:04)
[2025-02-27] MEDS: ROXICODONE 5 MG PO ×4 (03:04→15:20)
[2025-02-27 03:41] LABS: Hematocrit 34.9 % (39.0-52.0); Hemoglobin 11.8 g/dL (13.0-18.0); Mean Corp Hgb Conc. 33.8 g/dL (33.0-37.0); Mean Corpuscular Hgb 27.3 pg (27.0-31.0); Mean Corpuscular Volume 80.8 fL (80.0-94.0); Mean Platelet Volume 9.4 fL (7.4-10.4); Platelet Count 189 10^3/uL (130-400); Red Blood Cell Count 4.32 10^6/uL (4.70-6.10); Red Cell Dist. Width 13.6 % (11.5-14.5); White Blood Cell Count 13.8 10^3/uL (4.8-10.8)
[2025-02-27 04:02] LABS: Blood Urea Nitrogen 26 mg/dl (9-20); Calcium 8.8 mg/dl (8.4-10.2); Carbon Dioxide 26 mmol/L (22-30); Chloride 105 mmol/L (98-107); Estimated Creatinine Clearance 71 ml/min; Glucose 125 mg/dl (70-99); Magnesium 2.6 mg/dl (1.6-2.3); Potassium 4.8 mmol/L (3.5-5.1); Sodium 140 mmol/L (135-145); eGFR > 60.00
[2025-02-27 04:14] LABS: Glucose - Point of Care 123 mg/dl (70-99)
[2025-02-27] MEDS: TYLENOL 1000 MG PO ×3 (05:00→21:04)
[2025-02-27 06:06] LABS: Glucose - Point of Care 114 mg/dl (70-99)
[2025-02-27] MEDS: BUSPAR 10 MG PO ×2 (07:04→21:05)
[2025-02-27] MEDS: PROTONIX 40 MG PO (07:04)
[2025-02-27] MEDS: SENOKOT-S 1 TABLET PO ×2 (07:04→21:05)
[2025-02-27] MEDS: NEURONTIN 100 MG PO ×3 (07:04→21:06)
[2025-02-27] MEDS: PLAVIX 75 MG PO (07:04)
[2025-02-27] MEDS: MAGNESIUM OXIDE 500 MG PO (07:04)
[2025-02-27] MEDS: BACTROBAN 2% OINTMENT 1 APPLIC NASAL ×2 (07:05→21:04)
[2025-02-27] MEDS: PACERONE 200 MG PO ×3 (07:05→21:05)
--- NOTE | 2025-02-27 07:32 | W.PN.CARDCBS ---
Addendum entered and electronically signed by Kaela Tabor DO 02/27/25 10:22:
I saw and examined the patient.
The [employer]'s note was reviewed and I agree with the note.
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 OR record and overnight events reviewed. Patient states coming out of anesthesia he has had severe constant pain that worsens with any movement or deep
breathing. Currently more comfortable after Dilaudid, colchicine and tramadol. Bedside limited echocardiogram reviewed with stable if not slightly improved ejection fraction estimated around 40% with similar wall motion abnormalities. No
significant pericardial effusion. Patient is off pressors currently on IV nitroglycerin drip
General: Distressed due to pain, AOA x 3
Neck: Cordis
Heart: Regular. Positive S1-S2. No murmur. loud Rub. Positive chest tubes
Lungs: Shallow breathing secondary to pain with deep inspiration. Breath sounds decreased but clear. No wheezes.
Abd: Distended. Positive bowel sounds. Nontender
Ext: +1 edema, bilateral healed legs scars, tattoos
Neuro: nonfocal
Plan:
s/p CABG x 3 (MATTEO to LAD, GSV to RPDA, GSV to RPLB), ALEX clip 02/26/25
- Extubated and hemodynamically stable not requiring pressors
-Chest pain since extubation with EKG and exam findings consistent with pericarditis. Limited 2D bedside echocardiogram relatively stable with no new regional wall motion abnormality or significant pericardial effusion
- Consider consult to pain management; colchicine/Toradol initiated.
- Continue aspirin/Plavix for non-STEMI on admission
-Ischemic cardiomyopathy with reduced ejection fraction; eventually initiate goal-directed medical therapy
-appears mildly volume overloaded and will provide IV Lasix today; discussed with CT surgery
- will need follow up echo post revascularization to reassess EF
- Tobacco cessation strongly advised
Will follow with you closely
Original Note:
Today's Communication / Plan
-
pain mgmt
repeat EKG
echo
Impression / Plan
-
PCP:
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 Would like to follow-up with BERNARDINO Lewis at [facility] in future as his father is a patient.
Impression:
CP
NSTEMI
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
History of inferior TX 12/2021
Status post RCA stent, 12/2021 as well as stenting of another artery 2 weeks later, obtaining records
Hypertension
Hyperlipidemia
Current smoker
Medication noncompliance
Right and left heart cardiac cath 02/21/2025:
RA 13, PA 49/30, PCWP 25, PA sat 60.5%, CO/CI 5.2/2.4, SVR 1567
Left main: No disease
LAD: 80% ostial stenosis, 90% mid stenosis
Left circumflex: Mild luminal irregularities, previously placed stents widely patent, distal to the stent there is a myocardial bridge
RCA: 70% mid stenosis, ostial RPDA 50% ostial stenosis, good distal bypass targets
Echocardiogram: 02/21/2025: LVEF 30 to 35%, hypokinesis inferior lateral, inferior, and inferior septal segments, mild cLVH, stage II diastolic dysfunction, normal RV size, low normal RV systolic function, mild MR, mild TR, PAP 50 to 55 mmHg
Plan:
- s/p CABG x 3 (MATTEO to LAD, GSV to RPDA, GSV to RPLB), ALEX clip 02/26/25
- patient extubated overnight
- reports significant chest discomfort this morning. restless, anxious, unable to get comfortable in bed. he has been receiving IV dilaudid overnight without significant improvement. d/w nursing and CT surgical team. continue attempts at pain mgmt.
concern for pericarditis as noted to have significant rub on exam. EKG this AM with evidence of ST elevation in V1/V2, as well as possible mild elevation in lateral leads. Cr 1.4 so hesitant to give toradol. would recommend start colchicine. stat
repeat EKG ordered by me. he is on IV nitro @60. will check echo this AM
- on low dose dobut, wean as able
- continue asa, plavix as NSTEMI on presentation. hgb 11.8
- EF by echocardiogram newly reduced at 30 to 35%.
- eventual GDMT of new ICM as able post op
- will need follow up echo post revascularization to reassess EF
HPI:49-year-old male with history of inferior TX status post ROBERT to RCA as well as staged stenting of a second artery in 2021, hypertension, hyperlipidemia, smoker, no recent cardiac follow-up, stopped all medications months ago, presents for
evaluation of 1 month history of intermittent chest tightness, progressing in frequency, previously relieved with 1 sublingual nitroglycerin but no relief this morning. Had tightness with associated diaphoresis and chest pain. Presented to ED,
first troponin elevated at 0.061. EKG nonischemic, chest x-ray concerning for increased opacities bilaterally may represent interstitial edema versus pneumonitis.
Progress Note - Frame Table Operator Helper
Subjective
Date of Service: February 27, 2025
patient reports significant chest discomfort, uncomfortable.
Objective
Labs:
02/27/25 03:23
02/27/25 03:23
Labs
Hgb 11.8 g/dL (13.0-18.0) L 02/27/25 03:23
Hct 34.9 % (39.0-52.0) L 02/27/25 03:23
Plt Count 189 10^3/uL (130-400) 02/27/25 03:23
PT 15.6 Sec (11.4-14.6) H 02/26/25 19:16
INR 1.18 02/26/25 19:16
APTT 27.5 Sec (23.4-35.0) 02/26/25 19:16
Sodium 140 mmol/L (135-145) 02/27/25 03:23
Potassium 4.8 mmol/L (3.5-5.1) 02/27/25 03:23
BUN 26 mg/dl (9-20) H 02/27/25 03:23
Creatinine 1.4 mg/dL (0.7-1.3) H 02/27/25 03:23
Glucose 125 mg/dl (70-99) H 02/27/25 03:23
Vital Signs and I&O:
Vital Signs
Temp Pulse Resp BP Pulse Ox
98.7 F 92 26 114/73 94
02/27/25 06:56 02/27/25 06:45 02/27/25 06:45 02/27/25 06:00 02/27/25 06:56
Vital Signs
Temp Pulse Resp BP Pulse Ox
98.7 F 92 26 114/73 94
02/27/25 06:56 02/27/25 06:45 02/27/25 06:45 02/27/25 06:00 02/27/25 06:56
Intake & Output
02/24/25 02/25/25 02/26/25 02/27/25
07:59 07:59 07:59 07:59
Intake Total 1320 / 1320 480 / 480 490.5 / 490.5 562.4 / 562.4
Output Total 1750 / 1750 1425 / 1425 1310 / 1310
Balance -430 / -430 480 / 480 -934.5 / -934.5 -747.6 / -747.6
Physical Exam
Physical Exam
GEN: No distress, awake, alert, oriented x3. restless, uncomfortable
HEENT: supple, anicteric, mmm, eomi
LUNGS: Diminished BS B/L, no wheezes
CV: ST, S1/S2, no murmur, ++ rub
ABD: soft, BS+, NT/ND
EXT: No cyanosis, clubbing, edema
NEURO: Gross non-focal
SKIN: Warm, pink, dry. No rash. CTs in place
[2025-02-27] MEDS: COLCHICINE 0.6 MG PO (07:45)
[2025-02-27] MEDS: ULTRAM 100 MG PO ×3 (07:45→21:05)
--- NOTE | 2025-02-27 07:55 | W.PN.CT ---
Today's Communication / Plan
-
-pod #1
-extubated uneventfully @ 12:40 am
-drips: Dobut 2, Nitro 20, Insulin
-CT outputs: 2 meds 130/130, 2 pleur 50/50 in 12/24 hrs
-suspect pericarditis/+rub - started on Colchicine
-wean off Dobut, then deline
-follow Cr- 1.4 today (1.5 on 02/26 Cr 1.1-1.3 preop)
-current meds (ASA, Plavix, Lipitor, Amio, Protonix). Holding BB while on Dobut
-encourage IS, OOB
Assessment / Plan
-
-s/p CABG x 3 (MATTEO to LAD, GSV to RPDA, GSV to RPLB); ELAA w/ 35mm AtriClip by Dr. Nation on 02/26/25, pod #1
-Post-MABEL: LVEF 30-35%, mild RV dysfunction, fuky-pk-dufyjcef MR, mild TR, ALEX confirmed excluded
-Multivessel CAD
-NSTEMI (peak trop 2.04)
-Hx inferior [place] S/P RCA and LCX stents, 12/2021
-USA
-ICM
-LVEF 30-35% per echo 02/21/25; was 50-55% per echo 12/2021
-Mild MR/TR
-Hypertension
-Hyperlipidemia
-Current smoker
-Medication noncompliance
-Acute postop blood loss anemia - stable, no transfusion
-Acute postop atelectasis
-Acute intraop pHTN - improved
-Acute postop hypovolemia with subsequent hypervolemia
-EDWIN
-Suspected acute postop pericarditis/ + rub- started on Colchicine
Discussed patient care with: Nursing and Care Team
Subjective
-
Date of Service: February 27, 2025
Objective Data
-
PT 15.6 Sec (11.4-14.6) H 02/26/25 19:16
INR 1.18 02/26/25 19:16
APTT 27.5 Sec (23.4-35.0) 02/26/25 19:16
Vital Signs
Vital Signs
Temp Pulse Resp BP Pulse Ox
98.8 F 89 26 120/85 98
02/27/25 01:00 02/27/25 01:01 02/27/25 01:01 02/27/25 01:01 02/27/25 01:01
CT Intake/Output/Weight
02/26/25 02/26/25 02/27/25
06:59 18:59 06:59
Intake Total 490.5 / 490.5 323.5 / 323.5
Output Total 1200 / 1425 885 / 885
Balance -709.5 / -934.5 -561.5 / -561.5
SaO2: 98
Physical Exam
-
General: Awake and AOx3
Cardiovascular: Regular rate & rhythm, No Murmurs and Rub
Respiratory: Decreased Breath Sounds
Sternum: Stable
Incision: Clean, Dry and Intact
Extremities: Other (trace edema b/l, 2+ L DP, 1+ R DP)
Abdomen: soft, nontender, nondistended, + decreased BS
Data Reviewed
-
Lab Results: Results Reviewed
Medications: Active Meds Reviewed
Chest X-Ray: Report Reviewed and Image Reviewed
ECG: Report Reviewed and Image Reviewed
--- NOTE | 2025-02-27 08:05 | PTCARENOTE ---
assumed care of pt from previous shift RN, sinus rhythm on tele, bp 140-150/80's, + peripheral pulses, no edema. Pt w right IJ cordis w swan floated to 45. Pt is writhing in bed, c/o 10/10 pain to chest and back. Pt c/o of feeling anxious and
restless. States ' I feel like Im loosing my mind because the pain is so bad'. Cardiology PA at bedside. STAT EKG and echo ordered. Pain medications adjusted by CT JASMIN. Pharmacy made aware, pt medicated as ordered. EKG completed, echo at bedside at
present.
[2025-02-27] MEDS: DILAUDID 1 MG IV ×3 (08:10→15:20)
[2025-02-27 08:16] LABS: Glucose - Point of Care 121 mg/dl (70-99)
[2025-02-27] MEDS: NOVOLOG FLEXPEN SC ×2 (08:16→12:35)
--- NOTE | 2025-02-27 08:23 | PTCARENOTE ---
pt medicated for pain as ordered. Pt currently sleeping.
[2025-02-27 09:17] LABS: Glucose - Point of Care 119 mg/dl (70-99)
[2025-02-27] MEDS: LASIX 40 MG IV (09:17)
[2025-02-27 10:18] LABS: Glucose - Point of Care 99 mg/dl (70-99)
--- NOTE | 2025-02-27 10:29 | PTCARENOTE ---
devang canela, instructed to d/c. Hemodynamics reviewed w CT JASMIN. Instructed to wean dobutamine to off.
[2025-02-27 11:17] LABS: Glucose - Point of Care 106 mg/dl (70-99)
--- NOTE | 2025-02-27 11:20 | PTCARENOTE ---
devang and pleural CTs removed as ordered.
--- NOTE | 2025-02-27 12:35 | W.PN.ANS.POP ---
Anesthesia Post Operative
- Anesthesia Post Op Note
Vital Signs Stable-See Nursing Note: Yes
Airway Patent: Yes
Adequate Pain Control: Yes
Change in Mental Status: No
Current Postoperative Nausea & Vomiting: No
Anesthesia Complications: No
General Anesthetic Recall: No
Unplanned Admission: No
Post Op Hydration Adequate: Yes
[2025-02-27 13:27] LABS: Glucose - Point of Care 91 mg/dl (70-99)
--- NOTE | 2025-02-27 14:40 | PTCARENOTE ---
assisted pt oob to chair, tolerated well.
[2025-02-27] MEDS: NOVOLIN R INSULIN INFUSION 100 IV (14:50)
[2025-02-27 15:33] LABS: Glucose - Point of Care 101 mg/dl (70-99)
--- NOTE | 2025-02-27 15:35 | PTCARENOTE ---
Dobutamine weaned off, VSS, pt medicated for pain. Minimal output from CTs.
[2025-02-27] MEDS: NOVOLOG FLEXPEN 4 UNITS SC (16:10)
[2025-02-27] MEDS: NSS IV (17:10)
[2025-02-27 18:20] LABS: Glucose - Point of Care 114 mg/dl (70-99)
[2025-02-27] MEDS: LIPITOR 80 MG PO (18:20)
--- NOTE | 2025-02-27 20:00 | PTCARENOTE ---
Assumed care of the patient at 1900. Patient OOB to chair, drowsy but arousable to verbal stimulation, AOx3. SR on the monitor rates 80-90's, rub auscultated, denies any sharp CP, pulses palpable, no edema appreciated. CTx2 present to -20 cm wall
suction, no air leak, tidaling, or crepitus noted, sanguinous drainage in the chamber, lungs coarse, dim at the bases, on 2LNC, moist productive cough, IS encouraged. Hypoactive BS, patient reports passing flatus, no n/v today. Chapa catheter in
place draining clear, yellow urine. MS Aquacel CDI, R groin and RSVG CDI HOSPITAL UNIT CLERK, brigida wrap removed per protocol. RIJ Cordis/Ramona Isaías catheter @ 45, PIVx2 INT. On nitro, glycemic d/c'ed per order, KVOs. See nursing worklist for additional intervention
details.
[2025-02-27] MEDS: MAGNESIUM OXIDE PO (21:05)
[2025-02-27] MEDS: APRESOLINE 10 MG PO (21:33)
--- NOTE | 2025-02-27 21:45 | PTCARENOTE ---
Patient delined without incident, tolerated procedure. Hydralazine given for HTN, nitro titrated per protocol. Patient moved back to chair after prasanth removal for comfort. Assessment of needs ongoing, call harper within reach, patient instructed to
ring for assistance, indicated understanding.
[2025-02-28] VITALS (25 sets, daily range): BP systolic 109–174; BP diastolic 75–102; PULSE 90; O2SAT 98; BMI 28.1
[2025-02-28] MEDS: ULTRAM 100 MG PO ×3 (02:13→20:02)
--- NOTE | 2025-02-28 04:00 | PTCARENOTE ---
Nitro titrated per protocol. VSS, patient sleeping between care.
[2025-02-28 04:11] LABS: Hematocrit 33.1 % (39.0-52.0); Hemoglobin 11.4 g/dL (13.0-18.0); Mean Corp Hgb Conc. 34.4 g/dL (33.0-37.0); Mean Corpuscular Hgb 27.5 pg (27.0-31.0); Mean Platelet Volume 9.4 fL (7.4-10.4); Platelet Count 218 10^3/uL (130-400); Red Blood Cell Count 4.14 10^6/uL (4.70-6.10); Red Cell Dist. Width 13.6 % (11.5-14.5)
[2025-02-28 04:25] LABS: Blood Urea Nitrogen 27 mg/dl (9-20); Calcium 8.8 mg/dl (8.4-10.2); Carbon Dioxide 28 mmol/L (22-30); Chloride 95 mmol/L (98-107); Estimated Creatinine Clearance 83 ml/min; Glucose 115 mg/dl (70-99); Magnesium 2.2 mg/dl (1.6-2.3); Potassium 4.6 mmol/L (3.5-5.1); Sodium 132 mmol/L (135-145); eGFR > 60.00
[2025-02-28] MEDS: TYLENOL 1000 MG PO ×3 (05:22→22:31)
[2025-02-28] MEDS: NITROGLYCERIN PREMIX 250 IV (05:48)
--- NOTE | 2025-02-28 07:59 | W.PN.CT ---
Today's Communication / Plan
-
-pod #2
-drips: Nitro 70 last night- now off. Hypertensive last night - gave 10 mg po Hydralazine
-CT outputs: 2 meds 65/155 in 12/24 hrs
-suspect pericarditis/+rub - started on Colchicine
-follow Cr- 1.2 today (1.5 on 02/26 Cr 1.1-1.3 preop)
-current meds (ASA, Plavix, Lipitor, Amio, Protonix). Holding BB while on Dobut
-encourage IS, OOB
Assessment / Plan
-
-s/p CABG x 3 (MATTEO to LAD, GSV to RPDA, GSV to RPLB); ELAA w/ 35mm AtriClip by Dr. Nation on 02/26/25, pod #2
-Post-MABEL: LVEF 30-35%, mild RV dysfunction, xlux-tk-obrdsgid MR, mild TR, ALEX confirmed excluded
-Multivessel CAD
-NSTEMI (peak trop 2.04)
-Hx inferior [place] S/P RCA and LCX stents, 12/2021
-USA
-ICM
-LVEF 30-35% per echo 02/21/25; was 50-55% per echo 12/2021
-Mild MR/TR
-Hypertension
-Hyperlipidemia
-Current smoker
-Medication noncompliance
-Acute postop blood loss anemia - stable, no transfusion
-Acute postop atelectasis
-Acute intraop pHTN - improved
-Acute postop hypovolemia with subsequent hypervolemia
-EDWIN
-Suspected acute postop pericarditis/ + rub- started on Colchicine
Discussed patient care with: Nursing and Care Team
Subjective
-
Date of Service: February 28, 2025
Objective Data
-
Lab Results
02/28/25 03:50
02/28/25 03:50
PT 15.6 Sec (11.4-14.6) H 02/26/25 19:16
INR 1.18 02/26/25 19:16
APTT 27.5 Sec (23.4-35.0) 02/26/25 19:16
Vital Signs
Vital Signs
Temp Pulse Resp BP Pulse Ox
98.3 F 91 20 121/85 96
02/28/25 04:00 02/28/25 06:00 02/28/25 06:00 02/28/25 06:00 02/28/25 06:00
CT Intake/Output/Weight
02/27/25 02/28/25 02/28/25
18:59 06:59 18:59
Intake Total 1035.9 / 1808.9 773.0 / 1808.9
Output Total 1435 / 2220 785 / 2220
Balance -399.1 / -411.1 -12.0 / -411.1
SaO2: 96
Physical Exam
-
General: Awake and AOx3
Cardiovascular: Regular rate & rhythm, No Murmurs and Rub
Respiratory: Decreased Breath Sounds
Sternum: Stable
Incision: Clean, Dry and Intact
Extremities: No Edema
Abdomen: soft, nontender, nondistended, + bowel sounds
Data Reviewed
-
Lab Results: Results Reviewed
Medications: Active Meds Reviewed
Chest X-Ray: Report Reviewed and Image Reviewed
ECG: Report Reviewed and Image Reviewed
[2025-02-28] MEDS: PROTONIX 40 MG PO (08:31)
[2025-02-28] MEDS: SENOKOT-S 1 TABLET PO ×2 (08:31→20:02)
[2025-02-28] MEDS: BUSPAR 10 MG PO ×2 (08:31→20:02)
[2025-02-28] MEDS: NEURONTIN 100 MG PO ×3 (08:31→22:31)
[2025-02-28] MEDS: LOW STRENGTH ASPIRIN 81 MG PO (08:31)
[2025-02-28] MEDS: PLAVIX 75 MG PO (08:31)
[2025-02-28] MEDS: PACERONE 200 MG PO ×3 (08:31→22:31)
[2025-02-28] MEDS: COLCHICINE 0.3 MG PO (08:31)
[2025-02-28] MEDS: MAGNESIUM OXIDE 500 MG PO ×2 (08:31→20:03)
[2025-02-28] MEDS: BACTROBAN 2% OINTMENT 1 APPLIC NASAL ×2 (08:32→20:03)
--- NOTE | 2025-02-28 08:53 | W.PN.INTV ---
Today's Communication / Plan
Recommendations
Wean oxygen
Increase activity
Monitor chest tube output
Antihypertensives
Likely transfer to telemetry-flight readiness technician will sign off-call pulmonary if respiratory issues arise
Outpatient pulmonary follow-up
Assessment
-
49-year-old smoking male with a history of CAD/stent, hypertension, hyperlipidemia who is ongoing smoker noted to have multivessel CAD and underwent CABG-flight readiness technician consulted for postoperative ventilator/critical care management 02/26/25.
Multivessel CAD with a history of stent and preoperative reduced EF 30-35%
Status post CABG-Dr. Nation-02/26/25
Mild hyperglycemia
Mucous plugging
Conditions present prior to admission:
Hypertension.
Hyperlipidemia.
Cigarette smoker.
Mucous plugging and bronchiectasis
Pulmonary nodule-incidentally noted [address] chest 02/22/25
CAD/stent.
Plan
Tolerated extubation
Wean FiO2
Encourage incentive spirometry
Increase activity
Aspiration precautions
Pulmonary artery catheter and arterial line will be removed
Pressors have been weaned
Continue to monitor chest tube output
Follow hemoglobin
Continue to follow platelet count and coags
Transfuse blood product as needed
CT surgery following chest tubes as well
Follow blood sugar
Insulin supplementation continues as needed
Colchicine started for suspected pericarditis
Begin nutrition
Increase activity
DVT prophylaxis
Outpatient pulmonary [id number] cessation counseling, follow-up CT chest, PFTs
Patient will be transferred to telemetry phase-call pulmonary if respiratory issues arise
Reviewed the patient's pertinent medical records including radiographs, microbiology, laboratory evaluations, and discussion with primary team, and critical care nursing.
Diagnostic data:
Chest x-ray 04/27/2019-NAD
Chest x-ray 02/21/25-increased interstitial opacifications bilaterally with scattered nodular densities
CT chest abdomen and pelvis 06/11/2020-no evidence of solid organ contusion or laceration, contusion of the left lateral chest and upper abdomen wall regions, mild bronchiectasis and mucous plugging left lower lobe, small hiatal hernia, left adrenal
mass consistent with fat-containing adenoma, no suspicious adenopathy within the chest, no lung parenchymal abnormalities
CT chest 02/22/25-branching tubular opacifications consistent with chronic mucous plugging left lower lobe-increased from 2020, stent in circumflex and right coronary arteries, incidental 2 mm nodule right upper lobe
Echocardiogram 02/21/25-EF 30-35%, stage II diastolic dysfunction, mild mitral regurgitation, PA systolic 50-55
Cardiac catheterization 02/21/25-significant multivessel CAD involving mid RCA and ostial LAD
Subjective Dataa
Subjective Data
Date of Service:
Date of Service: February 28, 2025
Chief Complaint: Manager Crisis Follow Up, Pulmonary Follow Up and Vent Management Follow Up
Subjective:
tolerated extubation, no complaints of worsening shortness of breath, pain controlled, hypertension noted,
Review of Systems
General: Other ( per HPI)
Objective Data
Data Reviewed
Vital Signs / I&O / Oxygen:
Vital Signs
Temp Pulse Resp BP Pulse Ox
97.2 F 93 21 138/95 95
02/28/25 08:00 02/28/25 08:15 02/28/25 08:15 02/28/25 08:30 02/28/25 08:30
Intake and Output
02/27/25 02/28/25 03/01/25
06:59 06:59 06:59
Intake Total 562.4 / 562.4 1808.9 / 1808.9 110 / 110
Output Total 1310 / 1310 2220 / 2220
Balance -747.6 / -747.6 -411.1 / -411.1 110 / 110
SaO2 [CPAP/PSV] 99
SaO2 [SIMV] 100
SaO2 95
Nasal Cannula flow liters per 2
minute
Physical Exam
General: Respiratory Distress (n) and Comfortable
HEENT: Normocephalic, Anicteric and Moist Mucous Membranes
Cardiovascular: Regular Rhythm
Respiratory: Wheeze (n), Crackles (n), Rhonchi, Non-Labored Respirations, Accessory Resp Muscle Use (n) and Stridor (n)
GI: Soft, Non Distended and Non Tender
Neurology: Awake, Alert and No Motor Deficits
Skin: Warm, Good Color, Cyanosis (n) and Jaundice (n)
Labs/Micro/Reports
Lab Data
02/28/25 03:50
02/28/25 03:50
Microbiology
02/26/25 13:20 Urine Urine Culture - Final
NO GROWTH
--- NOTE | 2025-02-28 09:42 | PTCARENOTE ---
assumed care of pt from previous shift RN, sinus rhythm on tele, VSS, lungs course, coughing and deep breathing encouraged. +bs, tolerating PO intake, DTV. Surgical sites stable, Right IJ cordis and PIV flush easily. Pain is well controlled. Plan of
care reviewed w the pt and questions encouraged.
[2025-02-28] MEDS: LOPRESSOR 12.5 MG PO ×2 (12:02→20:02)
[2025-02-28] MEDS: ROXICODONE 5 MG PO (12:03)
[2025-02-28] MEDS: LASIX 40 MG IV (12:03)
--- NOTE | 2025-02-28 12:34 | W.PN.CARDCBS ---
Today's Communication / Plan
-
Supportive postoperative care
Continue current therapy for postoperative pericarditis, improved
Impression / Plan
-
PCP:
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 Would like to follow-up with BERNARDINO Lewis at [facility] in future as his father is a patient.
Impression:
CP
NSTEMI
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
History of inferior ID 12/2021
Status post RCA stent, 12/2021 as well as stenting of another artery 2 weeks later, obtaining records
Hypertension
Hyperlipidemia
Current smoker
Medication noncompliance
Right and left heart cardiac cath 02/21/2025:
RA 13, PA 49/30, PCWP 25, PA sat 60.5%, CO/CI 5.2/2.4, SVR 1567
Left main: No disease
LAD: 80% ostial stenosis, 90% mid stenosis
Left circumflex: Mild luminal irregularities, previously placed stents widely patent, distal to the stent there is a myocardial bridge
RCA: 70% mid stenosis, ostial RPDA 50% ostial stenosis, good distal bypass targets
Echocardiogram: 02/21/2025: LVEF 30 to 35%, hypokinesis inferior lateral, inferior, and inferior septal segments, mild cLVH, stage II diastolic dysfunction, normal RV size, low normal RV systolic function, mild MR, mild TR, PAP 50 to 55 mmHg
Plan:
- s/p CABG x 3 (MATTEO to LAD, GSV to RPDA, GSV to RPLB), ALEX clip 02/26/25
-Overall doing better this morning with improved pain/pericarditis symptoms
-Spoke with CT surgery with plan for chest tube removal later today
- continue asa, plavix as NSTEMI on presentation.
- EF by echocardiogram newly reduced at 30 to 35%.
- eventual GDMT of new ICM as able post op
- Increase activity/cardiac rehab
- Incentive's spirometry
- Eventual outpatient repeat echocardiogram to reassess EF after revascularization
HPI:49-year-old male with history of inferior ID status post ROBERT to RCA as well as staged stenting of a second artery in 2021, hypertension, hyperlipidemia, smoker, no recent cardiac follow-up, stopped all medications months ago, presents for
evaluation of 1 month history of intermittent chest tightness, progressing in frequency, previously relieved with 1 sublingual nitroglycerin but no relief this morning. Had tightness with associated diaphoresis and chest pain. Presented to ED,
first troponin elevated at 0.061. EKG nonischemic, chest x-ray concerning for increased opacities bilaterally may represent interstitial edema versus pneumonitis.
Progress Note - Rail Project Engineer
Subjective
Date of Service: February 28, 2025
Seen and examined sitting out of bed to chair. Overall chest pain he experienced yesterday has drastically improved. Mild incisional pain. No shortness of breath.
Objective
Labs:
02/28/25 03:50
02/28/25 03:50
Labs
Hgb 11.4 g/dL (13.0-18.0) L 02/28/25 03:50
Hct 33.1 % (39.0-52.0) L 02/28/25 03:50
Plt Count 218 10^3/uL (130-400) 02/28/25 03:50
PT 15.6 Sec (11.4-14.6) H 02/26/25 19:16
INR 1.18 02/26/25 19:16
APTT 27.5 Sec (23.4-35.0) 02/26/25 19:16
Sodium 132 mmol/L (135-145) L D 02/28/25 03:50
Potassium 4.6 mmol/L (3.5-5.1) 02/28/25 03:50
BUN 27 mg/dl (9-20) H 02/28/25 03:50
Creatinine 1.2 mg/dL (0.7-1.3) 02/28/25 03:50
Glucose 115 mg/dl (70-99) H 02/28/25 03:50
Vital Signs and I&O:
Vital Signs
Temp Pulse Resp BP Pulse Ox
98.2 F 86 16 144/83 95
02/28/25 11:35 02/28/25 12:00 02/28/25 11:35 02/28/25 11:35 02/28/25 11:35
Vital Signs
Temp Pulse Resp BP Pulse Ox
98.2 F 86 16 144/83 95
02/28/25 11:35 02/28/25 12:00 02/28/25 11:35 02/28/25 11:35 02/28/25 11:35
Intake & Output
02/26/25 02/27/25 02/28/25 03/01/25
06:59 06:59 06:59 06:59
Intake Total 490.5 / 490.5 562.4 / 562.4 1808.9 / 1808.9 120 / 120
Output Total 1425 / 1425 1310 / 1310 2220 / 2220
Balance -934.5 / -934.5 -747.6 / -747.6 -411.1 / -411.1 120 / 120
Physical Exam
Physical Exam
GEN: No distress, awake, alert, oriented x3.
HEENT: mmm
LUNGS: Diminished BS B/L, no wheezes
CV: ST, S1/S2, no murmur, + rub
ABD: soft, BS+, NT/ND
EXT: No cyanosis, clubbing, edema
NEURO: Gross non-focal
SKIN: CTs in place
--- NOTE | 2025-02-28 12:50 | CM ---
CM following for DC planning needs.
Met w/ patient at bedside; mother in law and spouse also present.
Pt. feels well POD# 2. We reviewed DC plan for home w/ CT Transitional Care RN. We also reviewed post op MD appointments.
Will cont. to follow for support and DC needs.
Of note, did review [facility]-Entresto is formulary and listed as tier1 medication. Cost should be minimal to patient if prescribed.
[2025-02-28] MEDS: ULTRAM PO (15:33)
--- NOTE | 2025-02-28 15:49 | PTCARENOTE ---
VSS, pain well controlled, sinus rhythm maintained on tele.
[2025-02-28] MEDS: NSS 500 IV (17:49)
[2025-02-28] MEDS: LIPITOR 80 MG PO (17:49)
--- NOTE | 2025-02-28 20:00 | PTCARENOTE ---
Assumed care of the patient at 1900. Patient OOB to chair, AOx3, drowsy. SR on the monitor, rates 70-90's, pulses palpable, no edema, heart tones audible, no rub auscultated. Rhonchus lung sounds, satting 91-92%, occasional moist productive cough,
IS encouraged. Patient endorses passing flatus, no BM, voiding in the urinal without difficulty concentrated clear, yellow urine. MS aquacel CDI, R groin and RSVG graft site CDI BEHAVIORAL HEALTH TECH, skin otherwise grossly intact. RIJ cordis with KVO, PIV x2. Call
harper within reach, assessment of needs ongoing; see nursing work list for additional intervention details.
[2025-02-28] MEDS: SYMBICORT 160/4.5 MCG INHALER 2 PUFF INH (21:04)
[2025-03-01] VITALS (7 sets, daily range): BP systolic 124–153; BP diastolic 81–95; BMI 28.1
--- NOTE | 2025-03-01 | PTCARENOTE ---
Patient placed on 2LNC for sleeping due to desatting to 88%. O2 sats 95% on 2LNC. Otherwise assessment unchanged.
--- NOTE | 2025-03-01 02:36 | W.PN.CT ---
Addendum entered and electronically signed by Endy Nation MD 03/01/25 09:36:
I saw and examined the patient.
The PA's note was reviewed and I agree with the note.
Comment:
POD#3 s/p CABG x 3; ELAA
No major overnight events. Amio bolus for PACs?
Creat 1.4 - UO: 1500mL/24h, 500mL overnight - Continue diuresis
HF med mgmt per cardiology - LVEF 30-35%
OOB/IS/ambulate
D/C planning for 1-2 days
Original Note:
Today's Communication / Plan
-
-pod #3
-no issues overnight. Feels much better since CTs are out
-on Colchicine for suspected pericarditis
-had frequent PACs this am - gave Amio bolus and po BB early
-follow Cr- 1.4 today (1.2 on 02/28, 1.5 on 02/26, Cr 1.1-1.3 preop)
-diurese
-wean off O2 - pOx 93% on 2L
-current meds (ASA, Plavix, Lopressor, Lipitor, Amio, Protonix)
-encourage IS, OOB, continue to ambulate
Assessment / Plan
-
-s/p CABG x 3 (MATTEO to LAD, GSV to RPDA, GSV to RPLB); ELAA w/ 35mm AtriClip by Dr. Nation on 02/26/25, pod #3
-Post-MABEL: LVEF 30-35%, mild RV dysfunction, [id number] MR, mild TR, ALEX confirmed excluded
-Multivessel CAD
-NSTEMI (peak trop 2.04)
-Hx inferior [place] S/P RCA and LCX stents, 12/2021
-USA
-ICM
-LVEF 30-35% per echo 02/21/25; was 50-55% per echo 12/2021
-Mild MR/TR
-Hypertension
-Hyperlipidemia
-Current smoker
-Medication noncompliance
-Acute postop blood loss anemia - stable, no transfusion
-Acute postop atelectasis
-Acute intraop pHTN - improved
-Acute postop hypovolemia with subsequent hypervolemia
-EDWIN- resolved
-Suspected acute postop pericarditis/ + rub- started on Colchicine
-Acute postop hyponatremia
Discussed patient care with: Nursing and Care Team
Subjective
-
Date of Service: March 01, 2025
Objective Data
-
PT 15.6 Sec (11.4-14.6) H 02/26/25 19:16
INR 1.18 02/26/25 19:16
APTT 27.5 Sec (23.4-35.0) 02/26/25 19:16
Vital Signs
Vital Signs
Temp Pulse Resp BP Pulse Ox
98.3 F 78 20 137/92 93
03/01/25 00:11 03/01/25 01:00 03/01/25 00:11 03/01/25 00:11 03/01/25 00:11
CT Intake/Output/Weight
02/28/25 02/28/25 03/01/25
06:59 18:59 06:59
Intake Total 773.0 / 1808.9 120 / 240 120 / 240
Output Total 785 / 2220 1050 / 1290 240 / 1290
Balance -12.0 / -411.1 -930 / -1050 -120 / -1050
SaO2: 93
Physical Exam
-
General: Awake and AOx3
Cardiovascular: Regular rate & rhythm, No Murmurs and Rub
Respiratory: Decreased Breath Sounds
Sternum: Stable
Incision: Clean, Dry and Intact
Extremities: Edema +1
Data Reviewed
-
Lab Results: Results Reviewed
Medications: Active Meds Reviewed
Chest X-Ray: Report Reviewed and Image Reviewed
ECG: Report Reviewed and Image Reviewed
[2025-03-01] MEDS: ULTRAM PO (03:13)
[2025-03-01 04:17] LABS: Hematocrit 33.7 % (39.0-52.0); Hemoglobin 11.3 g/dL (13.0-18.0); Mean Corp Hgb Conc. 33.5 g/dL (33.0-37.0); Mean Corpuscular Hgb 27.2 pg (27.0-31.0); Mean Platelet Volume 9.3 fL (7.4-10.4); Platelet Count 210 10^3/uL (130-400); Red Blood Cell Count 4.16 10^6/uL (4.70-6.10); Red Cell Dist. Width 13.6 % (11.5-14.5); White Blood Cell Count 14.1 10^3/uL (4.8-10.8)
[2025-03-01] MEDS: LOPRESSOR 12.5 MG PO (04:34)
[2025-03-01] MEDS: ROXICODONE 5 MG PO (04:36)
--- NOTE | 2025-03-01 04:38 | PTCARENOTE ---
Patient with frequent PVCs on the monitor, CVPA aware, instructed to give morning metoprolol now, amio bolus ordered. patient denies symptoms at this time, see work list and MAR for details.
[2025-03-01 04:42] LABS: Blood Urea Nitrogen 27 mg/dl (9-20); Calcium 9.1 mg/dl (8.4-10.2); Carbon Dioxide 29 mmol/L (22-30); Chloride 93 mmol/L (98-107); Estimated Creatinine Clearance 71 ml/min; Glucose 101 mg/dl (70-99); Magnesium 2.3 mg/dl (1.6-2.3); Potassium 4.2 mmol/L (3.5-5.1); Sodium 132 mmol/L (135-145); eGFR > 60.00
[2025-03-01] MEDS: CORDARONE 103 MG IV (04:50)
[2025-03-01] MEDS: TYLENOL 1000 MG PO ×3 (06:15→21:13)
[2025-03-01] MEDS: SYMBICORT 160/4.5 MCG INHALER 2 PUFF INH ×2 (07:20→18:04)
[2025-03-01] MEDS: ZOLOFT 50 MG PO (08:40)
[2025-03-01] MEDS: COLCHICINE 0.3 MG PO (08:40)
[2025-03-01] MEDS: PLAVIX 75 MG PO (08:40)
[2025-03-01] MEDS: BUSPAR 10 MG PO ×2 (08:40→20:16)
[2025-03-01] MEDS: LOW STRENGTH ASPIRIN 81 MG PO (08:40)
[2025-03-01] MEDS: PROTONIX 40 MG PO (08:40)
[2025-03-01] MEDS: NEURONTIN 100 MG PO ×3 (08:40→21:13)
[2025-03-01] MEDS: SENOKOT-S 1 TABLET PO (08:40)
[2025-03-01] MEDS: MAGNESIUM OXIDE 500 MG PO ×2 (08:40→20:16)
[2025-03-01] MEDS: BACTROBAN 2% OINTMENT 1 APPLIC NASAL ×2 (08:42→20:15)
[2025-03-01] MEDS: ULTRAM 100 MG PO ×3 (08:42→20:16)
[2025-03-01] MEDS: PACERONE 200 MG PO ×3 (08:42→21:13)
--- NOTE | 2025-03-01 08:53 | PTCARENOTE ---
assumed care of pt from previous shift RN, sinus rhythm on tele, VSS, lungs course, coughing and deep breathing encouraged. +bs, tolerating PO intake,voids spontaneously, Surgical sites stable, Right IJ cordis and PIV flush easily. Pain is well
controlled. Plan of care reviewed w the pt and questions encouraged.
--- NOTE | 2025-03-01 12:06 | W.PN.CARDCBS ---
Today's Communication / Plan
-
Change metoprolol to tartrate to metoprolol succinate
Consider addition of low-dose JENI inhibitor within the next 24 hours given his heart failure with reduced ejection fraction
Impression / Plan
-
PCP:
Primary heliotherapist: Previously saw Endy Easley at [facility] but has not been seen there since September 2022. Would like to follow-up with BERNARDINO Lewis at [facility] in future as his father is a patient.
Impression:
CP
NSTEMI
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
History of inferior TN 12/2021
Status post RCA stent, 12/2021 as well as stenting of another artery 2 weeks later, obtaining records
Hypertension
Hyperlipidemia
Current smoker
Medication noncompliance
Right and left heart cardiac cath 02/21/2025:
RA 13, PA 49/30, PCWP 25, PA sat 60.5%, CO/CI 5.2/2.4, SVR 1567
Left main: No disease
LAD: 80% ostial stenosis, 90% mid stenosis
Left circumflex: Mild luminal irregularities, previously placed stents widely patent, distal to the stent there is a myocardial bridge
RCA: 70% mid stenosis, ostial RPDA 50% ostial stenosis, good distal bypass targets
Echocardiogram: 02/21/2025: LVEF 30 to 35%, hypokinesis inferior lateral, inferior, and inferior septal segments, mild cLVH, stage II diastolic dysfunction, normal RV size, low normal RV systolic function, mild MR, mild TR, PAP 50 to 55 mmHg
Echocardiogram February 27, 2025: mildly reduced LVEF at 43%. Inferior, inferolateral and septal wall hypokinesis. Normal RV size and function. Trivial pericardial effusion.
Plan:
CAD, multivessel and with recent non-ST segment elevation myocardial infarction.
s/p CABG x 3 (MATTEO to LAD, GSV to RPDA, GSV to RPLB), ALEX clip 02/26/25
continue asa, plavix as NSTEMI on presentation.
Atorvastatin 80 mg daily
Heart failure with reduced ejection fraction
LVEF has improved post op
eventual GDMT of new ICM as able post op some of which can be done as an outpatient given his postoperative state
Currently on metoprolol tartrate will change to metoprolol succinate 25 mg daily which is what he was on as an outpatient
If remains hemodynamically stable, initiate low-dose JENI inhibitor in the next 24 hours
HPI:49-year-old male with history of inferior TN status post ROBERT to RCA as well as staged stenting of a second artery in 2021, hypertension, hyperlipidemia, smoker, no recent cardiac follow-up, stopped all medications months ago, presents for
evaluation of 1 month history of intermittent chest tightness, progressing in frequency, previously relieved with 1 sublingual nitroglycerin but no relief this morning. Had tightness with associated diaphoresis and chest pain. Presented to ED,
first troponin elevated at 0.061. EKG nonischemic, chest x-ray concerning for increased opacities bilaterally may represent interstitial edema versus pneumonitis.
Progress Note - Direct Sales Consultant
Subjective
Date of Service: March 01, 2025
Sitting in bed sleeping but easily arousable. Tells me he feels 'OK', just some mild incisional discomfort when he takes a deep breath.
Objective
Labs:
03/01/25 03:48
03/01/25 03:48
Labs
Hgb 11.3 g/dL (13.0-18.0) L 03/01/25 03:48
Hct 33.7 % (39.0-52.0) L 03/01/25 03:48
Plt Count 210 10^3/uL (130-400) 03/01/25 03:48
PT 15.6 Sec (11.4-14.6) H 02/26/25 19:16
INR 1.18 02/26/25 19:16
APTT 27.5 Sec (23.4-35.0) 02/26/25 19:16
Sodium 132 mmol/L (135-145) L 03/01/25 03:48
Potassium 4.2 mmol/L (3.5-5.1) 03/01/25 03:48
BUN 27 mg/dl (9-20) H 03/01/25 03:48
Creatinine 1.4 mg/dL (0.7-1.3) H 03/01/25 03:48
Glucose 101 mg/dl (70-99) H 03/01/25 03:48
Vital Signs and I&O:
Vital Signs
Temp Pulse Resp BP Pulse Ox
97.6 F 77 16 153/86 94
03/01/25 08:33 03/01/25 08:33 03/01/25 08:33 03/01/25 08:33 03/01/25 09:02
Vital Signs
Temp Pulse Resp BP Pulse Ox
97.6 F 77 16 153/86 94
03/01/25 08:33 03/01/25 08:33 03/01/25 08:33 03/01/25 08:33 03/01/25 09:02
Intake & Output
02/27/25 02/28/25 03/01/25 03/02/25
06:59 06:59 06:59 06:59
Intake Total 562.4 / 562.4 1808.9 / 1808.9 1173 / 1173 110 / 110
Output Total 1310 / 1310 2220 / 2220 1590 / 1590
Balance -747.6 / -747.6 -411.1 / -411.1 -417 / -417 110 / 110
Physical Exam
Physical Exam
Well-appearing, sleeping but easily arousable sitting in chair
Heart is regular normal S1 and S2, no S3 no S4 is a grade 1/6 apical holosystolic murmur no rubs. PMI is normally placed
Lungs reduced breath sounds at both bases due to poor inspiratory effort otherwise clear bilaterally without wheezes rales or rhonchi
Extremities trace pretibial edema bilaterally
[2025-03-01] MEDS: TOPROL XL 25 MG PO (13:03)
[2025-03-01] MEDS: NSS IV (15:29)
[2025-03-01] MEDS: LIPITOR 80 MG PO (16:59)
--- NOTE | 2025-03-01 17:09 | PTCARENOTE ---
VS obtained, assessment stable. Patient remains oob in chair, ambulating obrien occasionally w/family. States pain controlled. Ordering dinner.
--- NOTE | 2025-03-01 20:00 | PTCARENOTE ---
Assumed care of the patient. Patient OOB to chair, family at bedside, AOx3, pleasant, pain well controlled at this time. SR on the monitor, rate 70's, pulses palpable, no edema, heart tones audible. Lung sounds improved, diminished throughout but
less coarse than previously, IS continued. Patient reports BM today, no nausea, tolerating PO. Voiding without difficulty into the toilet. All surgical sites intact. RIJ cordis and PIVx2. Ambulating in the halls with family. Call harper within reach,
assessment of needs ongoing.
[2025-03-01] MEDS: SENOKOT-S PO (20:16)
[2025-03-02 00:09] VITALS: BP 115/76
--- NOTE | 2025-03-02 00:14 | PTCARENOTE ---
Helped patient with repositioning, made comfortable, call harper within reach, no acute changes
[2025-03-02] MEDS: ULTRAM 100 MG PO ×2 (02:55→08:42)
[2025-03-02 03:40] VITALS: BP 128/85
[2025-03-02 04:01] LABS: Hematocrit 31.4 % (39.0-52.0); Hemoglobin 10.4 g/dL (13.0-18.0); Mean Corp Hgb Conc. 33.1 g/dL (33.0-37.0); Mean Corpuscular Volume 81.6 fL (80.0-94.0); Mean Platelet Volume 9.9 fL (7.4-10.4); Platelet Count 230 10^3/uL (130-400); Red Blood Cell Count 3.85 10^6/uL (4.70-6.10); Red Cell Dist. Width 13.4 % (11.5-14.5); White Blood Cell Count 11.7 10^3/uL (4.8-10.8)
--- NOTE | 2025-03-02 04:01 | PTCARENOTE ---
No acute issues, patient sleeping between care, VSS
[2025-03-02 04:19] LABS: Blood Urea Nitrogen 32 mg/dl (9-20); Calcium 8.6 mg/dl (8.4-10.2); Carbon Dioxide 31 mmol/L (22-30); Chloride 94 mmol/L (98-107); Estimated Creatinine Clearance 83 ml/min; Glucose 100 mg/dl (70-99); Magnesium 2.5 mg/dl (1.6-2.3); Potassium 4.2 mmol/L (3.5-5.1); Sodium 133 mmol/L (135-145); eGFR > 60.00
[2025-03-02] MEDS: TYLENOL 1000 MG PO (05:09)
--- NOTE | 2025-03-02 05:39 | W.PN.CT ---
Addendum entered and electronically signed by Endy Nation MD 03/02/25 09:33:
I saw and examined the patient.
The PA's note was reviewed and I agree with the note.
Comment:
POD#4 s/p CABG x 3, ELAA
No major events. Ambulating in hallway.
OOB/IS/ambulate
D/C home today
Original Note:
Today's Communication / Plan
-
-pod #4
-on Colchicine for suspected pericarditis
-follow Cr- 1.2 today (1.4 yesterday, 1.2 on 02/28, 1.5 on 02/26, Cr 1.1-1.3 preop)
-current meds (ASA, Plavix, Lopressor, Lipitor, Amio, Protonix)
-add lisinopril 2.5mg for HF per Cards.
-encourage IS, OOB, continue to ambulate
Assessment / Plan
-
-s/p CABG x 3 (MATTEO to LAD, GSV to RPDA, GSV to RPLB); ELAA w/ 35mm AtriClip by Dr. Nation on 02/26/25, pod #4
-Post-MABEL: LVEF 30-35%, mild RV dysfunction, [id number] MR, mild TR, ALEX confirmed excluded
-Multivessel CAD
-NSTEMI (peak trop 2.04)
-Hx inferior [place] S/P RCA and LCX stents, 12/2021
-USA
-ICM
-LVEF 30-35% per echo 02/21/25; was 50-55% per echo 12/2021
-Mild MR/TR
-Hypertension
-Hyperlipidemia
-Current smoker
-Medication noncompliance
-Acute postop blood loss anemia - stable, no transfusion
-Acute postop atelectasis
-Acute intraop pHTN - improved
-Acute postop hypovolemia with subsequent hypervolemia
-EDWIN- resolved
-Suspected acute postop pericarditis/ + rub- started on Colchicine
-Acute postop hyponatremia
Subjective
Procedure
s/p CABG x 3 (MATTEO to LAD, GSV to RPDA, GSV to RPLB); ELAA w/ 35mm AtriClip by Dr. Nation on 02/26/25
-
Date of Service: March 02, 2025
Objective Data
-
Lab Results
03/02/25 03:30
03/02/25 03:30
PT 15.6 Sec (11.4-14.6) H 02/26/25 19:16
INR 1.18 02/26/25 19:16
APTT 27.5 Sec (23.4-35.0) 02/26/25 19:16
Vital Signs
Vital Signs
Temp Pulse Resp BP Pulse Ox
97.6 F 66 20 128/85 95
03/02/25 03:41 03/02/25 04:00 03/02/25 03:41 03/02/25 03:40 03/02/25 03:41
CT Intake/Output/Weight
03/01/25 03/01/25 03/02/25
06:59 18:59 06:59
Intake Total 1053 / 1173 510 / 510
Output Total 540 / 1590 300 / 300
Balance 513 / -417 210 / 210
SaO2: 95
Physical Exam
-
General: AOx3
Cardiovascular: Regular rate & rhythm
Respiratory: Decreased Breath Sounds
Sternum: Stable
Incision: Dressing Intact
Extremities: No Edema
[2025-03-02 06:00] VITALS: BMI 27.9
[2025-03-02] MEDS: SYMBICORT 160/4.5 MCG INHALER 2 PUFF INH (07:12)
[2025-03-02 08:15] VITALS: BP 152/86
--- NOTE | 2025-03-02 08:23 | PTCARENOTE ---
Patient received from material handler 2nd shift resting oob in chair, dozing but arousable and appropriate. NSR via cm, SaO2 @ 97% on RA. RIAmena Temple present. All procedural sites stable. Patient updated to plan of care for the day, in agreement. See work list for
full assessment and interventions performed.
[2025-03-02] MEDS: NEURONTIN 100 MG PO (08:42)
[2025-03-02] MEDS: BACTROBAN 2% OINTMENT 1 APPLIC NASAL (08:42)
[2025-03-02] MEDS: PACERONE 200 MG PO (08:42)
[2025-03-02] MEDS: PROTONIX 40 MG PO (08:42)
[2025-03-02] MEDS: ZESTRIL 2.5 MG PO (08:42)
[2025-03-02] MEDS: TOPROL XL 25 MG PO (08:42)
[2025-03-02] MEDS: LOW STRENGTH ASPIRIN 81 MG PO (08:43)
[2025-03-02] MEDS: MAGNESIUM OXIDE 500 MG PO (08:43)
[2025-03-02] MEDS: SENOKOT-S 1 TABLET PO (08:43)
[2025-03-02] MEDS: ZOLOFT 50 MG PO (08:43)
[2025-03-02] MEDS: PLAVIX 75 MG PO (08:43)
[2025-03-02] MEDS: COLCHICINE 0.3 MG PO (08:43)
[2025-03-02] MEDS: BUSPAR 10 MG PO (08:44)
[2025-03-02 12:33] VITALS: BP 145/95
--- NOTE | 2025-03-02 12:41 | PTCARENOTE ---
VS obtained, assessment stable. Patient oob in chair, at bedside. Awaiting d/c home.
--- NOTE | 2025-03-02 13:05 | W.DCSUMMARY ---
Discharge Summary
Discharge Data
Date of Admission: 02/21/25
Date of Discharge: 03/02/25
-
Pending Results: No
Additional Pending Results:
35
Hospital Course
Primary care physician:
Dr. Maunel Mccullough MD.
Outpatient manager aerospace:
Dr. Chalino Lewis MD.
Inpatient consultants:
[employer] quality control associate
Procedures:
1. Coronary artery bypass grafting x 3 with left internal mammary artery to left anterior descending coronary artery, saphenous vein graft to right posterior descending coronary artery, and saphenous vein graft to right posterior lateral branch.
2. Left atrial appendage exclusion with number [address] Endy Nation MD on 02/26/25
Primary Diagnosis:
1. History of inferior wall myocardial infarction in 2001 status post right coronary artery stenting and left circumflex stenting
2. Reduced left ventricular ejection fraction of 30 to 35%
3. Acute non-ST elevated myocardial infarction
4. Multivessel coronary artery disease
5. History of medical noncompliance
6. Current/active smoking (tobacco abuse)
7. Hypertension
8. Hyperlipidemia
9. Postoperative acute blood loss anemia
10. Postoperative pericarditis
Secondary Diagnoses:
1. History of inferior wall myocardial infarction in 2001 status post right coronary artery stenting and left circumflex stenting
2. Reduced left ventricular ejection fraction of 30 to 35%
3. Acute non-ST elevated myocardial infarction
4. Multivessel coronary artery disease
5. History of medical noncompliance
6. Current/active smoking (tobacco abuse)
7. Hypertension
8. Hyperlipidemia
9. Postoperative acute blood loss anemia
10. Postoperative pericarditis
HPI:
Patient is a 49-year-old male with a past medical history of coronary artery disease status post inferior wall myocardial infarction with drug-eluting stent to the right coronary artery and second stent to the left circumflex at [facility]
[place] in December 2021. Patient was experiencing left-sided chest tightness which brought him to [facility] emergency department on 02/21/25. Upon presentation he was found to have an elevated troponin and was ruled in for non-ST
elevated myocardial infarction. Echocardiogram was performed revealing a left ventricular ejection fraction of 30 to 35%. Subsequent cardiac catheterization revealed multivessel coronary artery disease. Cardiothoracic surgery was consulted for
surgical revascularization. Patient was seen by the cardiothoracic surgery service and deemed an appropriate candidate to undergo the procedure described above.
Hospital course:
Patient tolerated the procedure well. He remained intubated. He was transported from the operating room to the cardiovascular intensive care unit on hemodynamic support of norepinephrine at 2 and dobutamine at 5. Vasopressin was weaned off.
Patient successfully extubated 02/27 at 12:40 AM.
On postoperative day 1 Levophed and dobutamine were weaned off. Colchicine was started for pericarditis. Chapa catheter was kept in place for accurate I's and O's and acute surgical patient. On postoperative day #2 patient's chest tubes and Chapa
catheter were removed. He was diuresed with Lasix 40 mg IV. On postoperative day #3 he received an amnio bolus for premature atrial contractions. Patient has no other rhythm issues, and vital signs remained stable. On postoperative day #4 the
patient underwent a two-view chest x-ray which revealed a tiny right apical pneumothorax. His Cordis was removed. Case was discussed with attending physician, and he was medically cleared to be discharged to home on postoperative day 4.
Patient will be given a prescription for a PA and lateral chest x-ray to be performed on 03/05/2025 to follow-up right apical pneumothorax.
Home medication changes:
See below
Discharge Plan
-
Patient Disposition: Home (Routine Discharge)
Discharge Diagnosis/Procedures: CABG x 3, left atrial appendage clip
Condition: Good
Diet: Low Cholesterol and Low Sodium
Activity: No strenuous activity
Driving Restrictions: Not until seen by your Dr
Bathing Restrictions: OK to Shower
Others Tests: PA/Lateral Chest X Ray to be taken on Monday03/05/25
Other Services: Cardiac Rehab
Specialty Instructions: Weigh Daily- Call MD for wt gain/loss 3 lbs overnight/5 lbs in 1 week
Referrals:
CT Transitional Care Nurse [Outside] (The Cardiothoracic Transitional Care Nurse will call you to set up a visit in 1-2 days.)
Chester Weaver MD [Active] - in three to four weeks
Manuel Mccullough DO [Family Provider] -
Nina Romero PA-C [Specified Professional Personl] - 04/09/25 11:00 am
Endy Nation MD [Active] - 03/25/25 3:30 pm
Additional Discharge Medication Instructions: PA and lateral chest x-ray to be performed on Monday03/05/25 due to right apical pneumothorax
Prescriptions:
New
aspirin 81 mg Tablet,Chewable
81 mg PO DAILY Qty: 0 0RF
budesonide-formoterol [Symbicort] 160-4.5 mcg/actuation Hfa Aerosol Inhaler
2 puff inhalation R BID Qty: 1 2RF
atorvastatin 80 mg Tablet
80 mg PO QPM Qty: 30 1RF
gabapentin 100 mg Capsule
100 mg PO TID PRN (Reason: Nerve pain ) Qty: 20 0RF
Rx Instructions:
Take as needed for nerve pain
clopidogrel 75 mg Tablet
75 mg PO DAILY Qty: 30 1RF
pantoprazole 40 mg Tablet,Delayed Release (Dr/Ec)
40 mg PO DAILY Qty: 30 1RF
Rx Instructions:
GI prophylaxis with Plavix. Omeprazole and continue pantoprazole
sennosides-docusate sodium 8.6-50 mg Tablet
1 tab PO Q12 PRN (Reason: Constipation) Qty: 0 0RF
Rx Instructions:
Purchase OTC Take as needed for constipation while taking narcotic medication
metoprolol succinate 25 mg Tablet Extended Release 24 Hr
25 mg PO DAILY Qty: 30 1RF
acetaminophen 325 mg Tablet
650 mg PO Q4HPRN PRN (Reason: mild pain,headache,temp >101F ) Qty: 0 0RF
Rx Instructions:
Please purchase [id number]
tramadol 50 mg Tablet
100 mg PO Q6H PRN (Reason: Moderate to severe pain) Qty: 28 0RF
Rx Instructions:
Ongoing pain control. Attending Dr. Endy Nation MD
lisinopril 2.5 mg Tablet
2.5 mg PO DAILY Qty: 30 1RF
colchicine 0.6 mg tablet
0.6 mg PO DAILY Qty: 30 0RF
Rx Instructions:
Take daily for 1 month and then stop
Continued
buspirone 10 mg tablet
10 mg PO BID Qty: 0 0RF
sertraline 50 mg tablet
50 mg PO DAILY Qty: 0 0RF
Discontinued
nitroglycerin 0.4 mg Tablet, Sublingual
0.4 mg SUBLINGUAL [id number] PRN (Reason: chest pain)
omeprazole 20 mg Capsule,Delayed Release(Dr/Ec)
20 mg PO DAILY
Patient Comments:
11/22/2023, per spouse, pt. initially started taking this med. dailyprn but for the past week they have been taking one tablet daily. Pt. filled this med. on 09/18/2023 for 30-day supply. It is prescribed to be taken once daily.
metoprolol succinate 25 mg tablet extended release 24 hr
25 mg PO DAILY
Discharge Orders:
Discharge Patient (As Directed); Ordered 03/02/25
Ordered By: Valarie Rodas
Care Plan Goals
Care Plan Goals:
Problem: Readiness for enhanced knowledge related to diagnosis and treatment plan
Goal: Understand your diagnosis and treatment plan needs, including medications if applicable.
Instructions: Know your diagnosis, underlying causes and treatment plan options, including medications if applicable. Consult with your health care team to learn about your diagnosis and treatment plan, including medications if applicable.
Discharge Date and Time
Print Language: PAKISTANI
--- NOTE | 2025-03-02 13:58 | PTCARENOTE ---
Patient set up to shower, completed independently. Discharge instructions thoroughly reviewed w/patient and spouse, all questions answered. PIV removed. Patient and all belongings transported to waiting vehicle for d/c home.
--- NOTE | 2025-03-02 14:24 | W.[place]-PDMP ---
[place]-PDMP
-
Checked the [place]- Prescription Drug Monitoring Program website, no red flags identified; safe to proceed with prescription.
== END 2025-03-02 14:30 | disposition home or self-care (01) | DRG 233 ==
LOC: CVICU 12:12
PROVIDERS: Anesthesiology; Clinical Nurse Specialist Acute Care; Nurse Practitioner; Physician Assistant; Physician Assistant Medical; ADMITTING PHYSICIAN Hospitalist; ATTENDING PHYSICIAN Thoracic Surgery (Cardiothoracic Vascular Surgery); CONSULT PHYSICIAN Internal Medicine Cardiovascular Disease; CONSULT PHYSICIAN Internal Medicine Critical Care Medicine; CONSULT PHYSICIAN Thoracic Surgery (Cardiothoracic Vascular Surgery); EMERGENCY PHYSICIAN Emergency Medicine; FAMILY PHYSICIAN Family Medicine
PROC: B2151ZZ Fluoroscopy of Left Heart using Low Osmolar Contrast (ICD-10-PCS; 2025-02-21)
PROC: 4A023N8 Measurement of Cardiac Sampling and Pressure, Bilateral, Percutaneous Approach (ICD-10-PCS; 2025-02-21)
PROC: B2111ZZ Fluoroscopy of Multiple Coronary Arteries using Low Osmolar Contrast (ICD-10-PCS; 2025-02-21)
PROC: 021109W Bypass Coronary Artery, Two Arteries from Aorta with Autologous Venous Tissue, Open Approach (ICD-10-PCS; 2025-02-26)
PROC: 06BP4ZZ Excision of Right Saphenous Vein, Percutaneous Endoscopic Approach (ICD-10-PCS; 2025-02-26)
PROC: 02L70CK Occlusion of Left Atrial Appendage with Extraluminal Device, Open Approach (ICD-10-PCS; 2025-02-26)
PROC: 02100ZC Bypass Coronary Artery, One Artery from Thoracic Artery, Open Approach (ICD-10-PCS; 2025-02-26)
PROC: B24BZZ4 Ultrasonography of Heart with Aorta, Transesophageal (ICD-10-PCS; 2025-02-26)
PROC: 5A1221Z Performance of Cardiac Output, Continuous (ICD-10-PCS; 2025-02-26)
DX: I21.4 Non-ST elevation (NSTEMI) myocardial infarction (principal); I50.21 Acute systolic (congestive) heart failure; D62 Acute posthemorrhagic anemia; I31.9 Disease of pericardium, unspecified; Q24.5 Malformation of coronary vessels; J98.11 Atelectasis; N17.9 Acute kidney failure, unspecified; E87.1 Hypo-osmolality and hyponatremia; I30.8 Other forms of acute pericarditis; I25.10 Atherosclerotic heart disease of native coronary artery without angina pectoris; E78.00 Pure hypercholesterolemia, unspecified; F17.210 Nicotine dependence, cigarettes, uncomplicated; J47.9 Bronchiectasis, uncomplicated; R91.1 Solitary pulmonary nodule; I25.5 Ischemic cardiomyopathy; I27.20 Pulmonary hypertension, unspecified; E86.1 Hypovolemia; I11.0 Hypertensive heart disease with heart failure; I25.2 Old myocardial infarction; Z79.899 Other long term (current) drug therapy; Z82.49 Family history of ischemic heart disease and other diseases of the circulatory system; Z91.148 Patient's other noncompliance with medication regimen for other reason; Z95.5 Presence of coronary angioplasty implant and graft
CPT/HCPCS: 93308; 36600; 71045; 71046; 71250; 80048; 80053; 81003; 81015; 82248; 82330; 82565; 82607; 82728; 82805; 82810; 82947; 82962; 83036; 83540; 83550; 83735; 83880; 84132; 84302; 84484; 84520; 85014; 85018; 85025; 85027; 85049; 85610; 85730; 86850; 86900; 86901; 86920; 87070; 87086; 93005; 93306; 93312; 93320; 93325; 93458; 93880; 94002; 94060; 94640; 96365; 96366; 99152; 99153; 99291; 99406; C1713; C1760; C1894; J1325; Q9967

== ENCOUNTER → 2025-03-04 10:26 | Outpatient (REF) | payer OTHER, SELFPAY | LOC: HWRAD 10:26 | PROVIDERS: ATTENDING PHYSICIAN Thoracic Surgery (Cardiothoracic Vascular Surgery); FAMILY PHYSICIAN Family Medicine | DX: J90 Pleural effusion, not elsewhere classified (principal) | CPT/HCPCS: 71046 ==

== ENCOUNTER 2025-03-13 08:19 | Emergency (ER) | payer OTHER, SELFPAY ==
[2025-03-13 08:29] VITALS: BP 148/96
[2025-03-13 08:46] VITALS: BP 146/87
--- NOTE | 2025-03-13 08:55 | ED.GENMED ---
History of Present Illness
General
Chief Complaint: Flank Pain
Source: patient and spouse
Time Seen by Provider: 03/13/25 08:37
History of Present Illness
History of Present Illness:
49-year-old male presents to the emergency room complaining of left flank pain. Patient was awoken from sleep at about 5 AM with left flank pain. Pain was severe. Patient's states he was writhing in pain not able to find a comfortable
position. Patient is postop day #15 from bypass surgery. He has been recovering well from the surgery. He has tramadol that was prescribed for postoperative pain. He took that this morning for his flank pain and did provide some relief. He
currently ranks his pain about a 6 out of 10. It exist in the left flank and waxes and wanes in intensity. He denies any pain with deep inspiration or shortness of breath. He denies any fever, chills, nausea or vomiting. He does not have any
urinary frequency urgency or dysuria. No history of kidney stones.
Past History
Past History
ED Past Medical History: CAD, HTN, Hypercholesterolemia, [place] and Other (MRSA)
ED Past Surgical History: Cardiac (Stents X 2) and Cholecystectomy
Social History
Tobacco: Smoker
Alcohol: None
Drug: Former user
Personal:
Living: with family
Phy Exam
Physical Exam
Physical Exam:
General: Awake, Alert, Oriented X3. No acute distress.
Vitals: unremarkable
Head: Atraumatic
Eyes: Pupils equal, EOMI
Throat: Airway intact, no exudates
Neck: Trachea midline
Chest: Sternal incision intact, no evidence for infection
Lungs: Clear and equal b/l
Heart: Regular rate, no murmurs
Abd: Soft, Nontender, No pulsatile mass
Back: No significant CVA tenderness to percussion
Neuro: Nonfocal
Skin: Warm, dry, no rash
Extremities: pulses equal b/l, trace edema
Course
Orders/Labs/Results
Orders:
Orders
03/13/25 08:24
EKG [Electrocardiogram (*1)] Urgent
Reason for Study: Chest Pain
EKG- Treatment ONCE
03/13/25 08:54
0.9% Sodium Chloride 500 ml [Nss] 500 ml IV BOLUS
HYDROmorphone [Dilaudid] 0.5 mg IV NOW STA
03/13/25 08:59
CR Chest - 2 Views Urgent
Comment:
Reason For Exam: Left flank pain recent CABG
03/13/25 09:17
Basic Metabolic Panel Urgent
Complete Blood Count/With Diff Urgent
Urinalysis Reflex To Culture Urgent
Date Specimen was Collected: 03/13/25
Time Specimen was Collected: 09:06
Urine Microscopic Reflex Cult Urgent
03/13/25 10:32
US Kidneys and US Bladder [US Renal With Bladder] Urgent
Comment:
Reason For Exam: left flank pain
03/13/25 11:52
HYDROmorphone [Dilaudid] 0.5 mg IV NOW STA
03/13/25 11:53
CT Chest PE Study Urgent
Comment:
Reason For Exam: left flank pain
03/13/25 15:36
Oxycodone [Roxicodone] 5 mg PO NOW STA
Abnormal Lab Results
03/13/25
09:17
WBC 13.9 H 10^3/uL
(4.8-10.8)
RBC 4.22 L 10^6/uL
(4.70-6.10)
Hgb 11.2 L g/dL
(13.0-18.0)
Hct 33.5 L %
(39.0-52.0)
MCV 79.4 L fL
(80.0-94.0)
MCH 26.5 L pg
(27.0-31.0)
Plt Count 408 H 10^3/uL
(130-400)
Abs Immat Gran (auto) 0.1 H 10^3/uL
(0-0.05)
Absolute Neuts (auto) 8.1 H 10^3/uL
(1.4-6.5)
Absolute Monos (auto) 0.9 H 10^3/uL
(0.1-0.6)
Absolute Eos (auto) 1.6 H 10^3/uL
(0-0.7)
Eosinophils % 11.5 H %
(0-6)
BUN 23 H mg/dl
(9-20)
Glucose 107 H mg/dl
(70-99)
Urine Bacteria (Reflex) Few A
(Negative)
Urine Albumin (Reflex) 1+ A
(Neg - Trace)
03/13/25 09:17
03/13/25 09:17
Vital Signs
Initial and Last Documented VS:
Initial Vital Signs
Temp Pulse Resp BP Pulse Ox
97.7 F 73 18 148/96 98
03/13/25 08:29 03/13/25 08:29 03/13/25 08:29 03/13/25 08:29 03/13/25 08:29
Last Documented Vital Signs
Temp Pulse Resp BP Pulse Ox
97.7 F 65 18 143/95 96
03/13/25 08:29 03/13/25 10:30 03/13/25 10:30 03/13/25 10:00 03/13/25 10:30
MDM/Problems Addressed
Differential Diagnosis Includes:
Kidney stone, urinary tract infection, PE, pneumonia
MDM/Problems Addressed:
Patient presents to the emergency room with left flank pain that seems to have started fairly suddenly through the night and woke her from sleep. Vital signs here are normal essentially. He is afebrile. He is not hypoxic. Labs show a mildly
elevated white count of 13.9 which is nonspecific. His hemoglobin is 11.2 and has increased since discharge. Chemistries show minimal elevation of his BUN but normal creatinine but these are both improved from discharge. Urinalysis is completely
unremarkable. Chest x-ray showed a small left pleural effusion which is smaller in size since discharge. Ultrasound of the kidneys show no evidence of hydronephrosis. A CT of the chest was performed which similarly shows no acute abnormality
other than a left lower effusion with associated atelectasis which is expected in the postoperative phase. Communicated with Dr. Nation throughout the patient's stay. No further workup seems to be indicated at this time from his point of view. I
think his pain is musculoskeletal in nature at this point. Will treat as such. Follow with Dr. Nation as an outpatient. Patient instructed to return should he develop fever greater than 101, shortness of breath or feels like things are just
getting worse in any way.
*Radiology
Radiology exam reviewed: radiology read reviewed
*Pulse Oximetry
Patient hypoxic: no
*EKG
Interpreted by ED Provider?: Yes
Heart Rate: 67
Rate: normal
Rhythm: sinus
[place]: normal axis
Interval: normal interval
QRS Pattern: normal QRS
Ischemia: T-wave inversion (T wave inversions V5, V6, Q waves in leads II, III, no ST elevation)
*Ruling Machine Set Up Operator Interpretation
Rate: normal
Interpretation: normal
Rhythm: sinus
*Critical Care Note
Total Time (30-74mins, 75-104mins- exclusive of procedures): Not Applicable
ED Attending Note
-
Portions of this chart may have been created with voice recognition software.� Occasional wrong word or��sound alike� substitutions may have occurred due to the inherent limitations of voice recognition software.
Discharge Plan
Departure
Patient Disposition: Home (Routine Discharge)
Date of Disposition: 03/13/25
Time of Disposition: 15:37
Patient with high blood pressure during this ER visit?: Yes
Condition: Good
Discharge Problem:
Acute left flank pain
Instructions: Back Muscle Strain
Prescriptions:
New
cyclobenzaprine 10 mg tablet
10 mg PO TID PRN (Reason: back pain) Qty: 14 0RF
oxycodone 5 mg tablet
5 mg PO Q6H PRN (Reason: Pain) Qty: 12 0RF
No Action
aspirin 81 mg Tablet,Chewable
81 mg PO DAILY Qty: 0 0RF
budesonide-formoterol [Symbicort] 160-4.5 mcg/actuation Hfa Aerosol Inhaler
2 puff inhalation R BID Qty: 1 2RF
buspirone 10 mg tablet
10 mg PO BID Qty: 0 0RF
sertraline 50 mg tablet
50 mg PO DAILY Qty: 0 0RF
atorvastatin 80 mg Tablet
80 mg PO QPM Qty: 30 1RF
gabapentin 100 mg Capsule
100 mg PO TID PRN (Reason: Nerve pain ) Qty: 20 0RF
Rx Instructions:
Take as needed for nerve pain
clopidogrel 75 mg Tablet
75 mg PO DAILY Qty: 30 1RF
pantoprazole 40 mg Tablet,Delayed Release (Dr/Ec)
40 mg PO DAILY Qty: 30 1RF
Rx Instructions:
GI prophylaxis with Plavix. Omeprazole and continue pantoprazole
sennosides-docusate sodium 8.6-50 mg Tablet
1 tab PO Q12 PRN (Reason: Constipation) Qty: 0 0RF
Rx Instructions:
Purchase OTC Take as needed for constipation while taking narcotic medication
metoprolol succinate 25 mg Tablet Extended Release 24 Hr
25 mg PO DAILY Qty: 30 1RF
acetaminophen 325 mg Tablet
650 mg PO Q4HPRN PRN (Reason: mild pain,headache,temp >101F ) Qty: 0 0RF
Rx Instructions:
Please purchase [id number]
tramadol 50 mg Tablet
100 mg PO Q6H PRN (Reason: Moderate to severe pain) Qty: 28 0RF
Rx Instructions:
Ongoing pain control. Attending Dr. Endy Nation MD
lisinopril 2.5 mg Tablet
2.5 mg PO DAILY Qty: 30 1RF
colchicine 0.6 mg tablet
0.6 mg PO DAILY Qty: 30 0RF
Rx Instructions:
Take daily for 1 month and then stop
Referrals:
Manuel Mccullough DO [Family Provider] -
Endy Nation MD [Active] -
Activity Restrictions/Additional Instructions:
You should receive a call by Dr. Nation's office to schedule an appointment perhaps sooner than your existing appointment. Return to the emergency room if you develop a fever greater than 101 and feel you are getting worse. Take Tylenol and
Flexeril for the pain first. Take the oxycodone if these are not sufficient.
Interventions
Interventions:
*Risk Screen - Suicide Last Done: 03/13/25 08:29
*General Assessment Last Done: 03/13/25 08:29
*ED- Fall Risk Assessment Last Done: 03/13/25 09:05
*ED COVID-19 Vaccine History Last Done: 03/13/25 09:05
*Nursing Disposition Last Done: 03/13/25 16:04
XP-Ylodhh-Eryzddxmjl Assessment Last Done: 03/13/25 09:05
ED-Male Genitourinary Assessment Last Done: 03/13/25 09:05
Discharge Date and Time
Print Language: BELIZEAN
[2025-03-13 09:00] VITALS: BP 135/92
[2025-03-13 09:04] VITALS: BMI 27.0
[2025-03-13] MEDS: NSS 500 IV (09:18)
[2025-03-13] MEDS: DILAUDID 0.5 MG IV ×2 (09:18→12:21)
[2025-03-13 09:34] LABS: % Basophils 0.9 % (0-2); % Eosinophils 11.5 % (0-6); % Immature Granulocytes 0.4 % (0-0.5); % Lymphocytes 22.8 % (20.5-51.1); % Monocytes 6.2 % (1.7-9.3); % Neutrophils 58.2 % (42.2-75.2); Absolute Basophils 0.1 10^3/uL (0-0.2); Absolute Eosinophils 1.6 10^3/uL (0-0.7); Absolute Immature Granulocytes 0.1 10^3/uL (0-0.05); Absolute Lymphocytes 3.2 10^3/uL (1.2-3.4); Absolute Monocytes 0.9 10^3/uL (0.1-0.6); Absolute Neutrophils 8.1 10^3/uL (1.4-6.5); Hematocrit 33.5 % (39.0-52.0); Hemoglobin 11.2 g/dL (13.0-18.0); Mean Corp Hgb Conc. 33.4 g/dL (33.0-37.0); Mean Corpuscular Hgb 26.5 pg (27.0-31.0); Mean Corpuscular Volume 79.4 fL (80.0-94.0); Mean Platelet Volume 8.2 fL (7.4-10.4); Nucleated Red Blood Cells % 0 % (-); Platelet Count 408 10^3/uL (130-400); Red Blood Cell Count 4.22 10^6/uL (4.70-6.10); Red Cell Dist. Width 13.2 % (11.5-14.5); White Blood Cell Count 13.9 10^3/uL (4.8-10.8)
[2025-03-13 09:44] LABS: Blood Urea Nitrogen 23 mg/dl (9-20); Calcium 9.2 mg/dl (8.4-10.2); Carbon Dioxide 23 mmol/L (22-30); Chloride 107 mmol/L (98-107); Estimated Creatinine Clearance 99 ml/min; Glucose 107 mg/dl (70-99); Sodium 138 mmol/L (135-145); eGFR > 60.00
[2025-03-13 09:58] LABS: Urine Albumin 1+ (Neg - Trace); Urine Bilirubin Negative (Negative); Urine Character Clear (Clear); Urine Color Yellow; Urine Glucose Negative (Negative); Urine Ketone Negative (Negative); Urine Leukocyte Negative (Negative); Urine Nitrite Negative (Negative); Urine Occult Blood Negative (Negative); Urine Specific Gravity 1.025 (<1.030); Urine Urobilinogen Negative (Neg - 1+)
[2025-03-13 10:00] VITALS: BP 143/95
[2025-03-13 10:29] LABS: Urine Bacteria Few (Negative); Urine Red Blood Cell 0-2 /HPF (0-2)
[2025-03-13] MEDS: ROXICODONE 5 MG PO (15:48)
== END 2025-03-13 16:04 | disposition home or self-care (01) ==
LOC: EMR 08:19
PROVIDERS: EMERGENCY PHYSICIAN Emergency Medicine; FAMILY PHYSICIAN Family Medicine
DX: R10.9 Unspecified abdominal pain (principal); I25.10 Atherosclerotic heart disease of native coronary artery without angina pectoris; I10 Essential (primary) hypertension; E78.00 Pure hypercholesterolemia, unspecified; I25.2 Old myocardial infarction; Z86.14 Personal history of Methicillin resistant Staphylococcus aureus infection; F17.200 Nicotine dependence, unspecified, uncomplicated; Z90.49 Acquired absence of other specified parts of digestive tract; Z95.1 Presence of aortocoronary bypass graft; Z95.5 Presence of coronary angioplasty implant and graft
CPT/HCPCS: 99284; 96374; 96376; 96361; 71046; 71275; 76770; 80048; 81003; 81015; 85025; 93005; Q9967

== ENCOUNTER 2025-03-29 14:00 | Emergency (ER) | payer OTHER, SELFPAY ==
[2025-03-29 14:01] VITALS: BP 180/110
[2025-03-29 14:15] VITALS: BP 157/105; BMI 27.0
--- NOTE | 2025-03-29 14:34 | ED.GENMED ---
History of Present Illness
General
Chief Complaint: Chest Pain
Time Seen by Provider: 03/29/25 14:25
History of Present Illness
History of Present Illness:
Patient is a 49-year-old male with a history of multivessel coronary artery disease status post three-vessel CABG 1 month ago. He presents with chest pain. States he was up on top of the edge yesterday and fell to the ground. After that he had
been having some centralized chest pain. Pain is sharp and worse with inhalation. He had 1 episode of small volume hemoptysis last night where he described small specks of blood in his cough. Since then, this has resolved. Endorses is some
diffuse chest discomfort. No shortness of breath.
Past History
Past History
ED Past Medical History: CAD, HTN, Hypercholesterolemia, [place] and Other (MRSA)
ED Past Surgical History: Cardiac (Stents X 2) and Cholecystectomy
Social History
Tobacco: Smoker
Alcohol: None
Drug: Former user
Personal:
Living: with family
Phy Exam
Physical Exam
Physical Exam:
GENERAL APPEARANCE: NAD, well developed/ well nourished
EYES lids/conjunctiva normal
EARS/NOSE/THROAT Mucous membranes moist, uvula midline without oral pharyngeal erythema, exudate or swelling
HEAD/NECK normocephalic atraumatic, neck is supple.
RESPIRATORY respiratory effort normal, speaks in full sentences, no accessory muscle use. Lungs clear to auscultation without rhonchi, wheezes, rales
CARDIAC Regular rate and rhythm, no edema. Sternal scar is well-healing
ABDOMINAL Soft, ND/NT. No pulsatile masses on exam, rebound tenderness, Jennings sign or pain over Mcburney's point.
MUSCLES/EXTREMITIES No abnormal range of motion, no swelling.
SKIN Warm, pink and dry. No rashes
NEUROLOGICAL Speech is clear and appropriate. Normal level of consciousness. 5/5 strength in all extremities.
PSYCH Normal mood and affect. Judgement/competence is appropriate
Scores
Heart Score for Chest Pain Patients
STEMI patient?: Not applicable
Course
Orders/Labs/Results
Orders:
Orders
03/29/25 14:01
Electrocardiogram (*1) Urgent
Reason for Study: Chest Pain
EKG- Treatment ONCE
03/29/25 14:31
Pulse Ox/cont/shift [RESP] Stat
Quantity: 1
03/29/25 14:33
CT Chest PE Study Urgent
Comment:
Reason For Exam: post CABG, chest pain, hemoptysis
03/29/25 14:50
Complete Blood Count/With Diff Urgent
Comprehensive Metabolic Panel Urgent
D-Dimer Urgent
Troponin I Urgent
03/29/25 14:55
Acetaminophen [Tylenol] 1,000 mg .ROUTE .STK-MED ONE
03/29/25 14:56
Acetaminophen [Tylenol] 1,000 mg PO NOW STA
Abnormal Lab Results
03/29/25
14:50
WBC 11.7 H 10^3/uL
(4.8-10.8)
RBC 4.42 L 10^6/uL
(4.70-6.10)
Hgb 11.4 L g/dL
(13.0-18.0)
Hct 35.0 L %
(39.0-52.0)
MCV 79.2 L fL
(80.0-94.0)
MCH 25.8 L pg
(27.0-31.0)
MCHC 32.6 L g/dL
(33.0-37.0)
Absolute Monos (auto) 0.9 H 10^3/uL
(0.1-0.6)
Absolute Eos (auto) 2.2 H 10^3/uL
(0-0.7)
Eosinophils % 18.4 H %
(0-6)
D-Dimer 3.49 H ug/mlFEU
(0.00-0.50)
Chloride 110 H mmol/L
(98-107)
Glucose 109 H mg/dl
(70-99)
Alkaline Phosphatase 142 H U/L
(38-126)
03/29/25 14:50
03/29/25 14:50
Vital Signs
Initial and Last Documented VS:
Initial Vital Signs
Temp Pulse Resp BP Pulse Ox
97.9 F 98 16 180/110 98
03/29/25 14:01 03/29/25 14:01 03/29/25 14:01 03/29/25 14:01 03/29/25 14:01
Last Documented Vital Signs
Temp Pulse Resp BP Pulse Ox
97.9 F 99 17 166/96 97
03/29/25 14:01 03/29/25 17:00 03/29/25 17:00 03/29/25 16:45 03/29/25 17:00
*Critical Care Note
Total Time (30-74mins, 75-104mins- exclusive of procedures): Not Applicable
ED Attending Note
ED Attending Note
ED Attending Note:
Patient CT scan notable for slightly larger pleural effusion on the left. Infiltrate noted however this is stable from prior patient has no leukocytosis, fever or cough to suggest pneumonia. I have consulted the cardiothoracic team who will see
him in the emergency department
Patient was seen and evaluated by the CT surgery team, Pasquale Alvarez. Their team will coordinate outpatient thoracentesis. Patient has no shortness of breath or orthopnea and they do not feel that this is the cause of his symptoms.
Likely from breaching the sternal precautions yesterday lifting his grandson.
-
Portions of this chart may have been created with voice recognition software.� Occasional wrong word or��sound alike� substitutions may have occurred due to the inherent limitations of voice recognition software.
Discharge Plan
Departure
Patient Disposition: Home (Routine Discharge)
Date of Disposition: 03/29/25
Time of Disposition: 18:03
Patient with high blood pressure during this ER visit?: Yes
Discharge Problem:
Post-op pain, Pleural effusion
Instructions: Pleural effusion, How to protect the chest after heart surgery
Prescriptions:
No Action
aspirin 81 mg Tablet,Chewable
81 mg PO DAILY Qty: 0 0RF
budesonide-formoterol [Symbicort] 160-4.5 mcg/actuation Hfa Aerosol Inhaler
2 puff inhalation R BID Qty: 1 2RF
buspirone 10 mg tablet
10 mg PO BID Qty: 0 0RF
sertraline 50 mg tablet
50 mg PO DAILY Qty: 0 0RF
atorvastatin 80 mg Tablet
80 mg PO QPM Qty: 30 1RF
gabapentin 100 mg Capsule
100 mg PO TID PRN (Reason: Nerve pain ) Qty: 20 0RF
Rx Instructions:
Take as needed for nerve pain
clopidogrel 75 mg Tablet
75 mg PO DAILY Qty: 30 1RF
pantoprazole 40 mg Tablet,Delayed Release (Dr/Ec)
40 mg PO DAILY Qty: 30 1RF
Rx Instructions:
GI prophylaxis with Plavix. Omeprazole and continue pantoprazole
sennosides-docusate sodium 8.6-50 mg Tablet
1 tab PO Q12 PRN (Reason: Constipation) Qty: 0 0RF
Rx Instructions:
Purchase OTC Take as needed for constipation while taking narcotic medication
metoprolol succinate 25 mg Tablet Extended Release 24 Hr
25 mg PO DAILY Qty: 30 1RF
acetaminophen 325 mg Tablet
650 mg PO Q4HPRN PRN (Reason: mild pain,headache,temp >101F ) Qty: 0 0RF
Rx Instructions:
Please purchase [id number]
tramadol 50 mg Tablet
100 mg PO Q6H PRN (Reason: Moderate to severe pain) Qty: 28 0RF
Rx Instructions:
Ongoing pain control. Attending Dr. Endy Nation MD
lisinopril 2.5 mg Tablet
2.5 mg PO DAILY Qty: 30 1RF
colchicine 0.6 mg tablet
0.6 mg PO DAILY Qty: 30 0RF
Rx Instructions:
Take daily for 1 month and then stop
cyclobenzaprine 10 mg tablet
10 mg PO TID PRN (Reason: back pain) Qty: 14 0RF
oxycodone 5 mg tablet
5 mg PO Q6H PRN (Reason: Pain) Qty: 12 0RF
Referrals:
Manuel Mccullough DO [Family Provider, Family Practice]
Interventions
Interventions:
*Risk Screen - Suicide Last Done: 03/29/25 14:01
*General Assessment Last Done: 03/29/25 14:16
*Neglect/Abuse Screening Last Done: 03/29/25 14:01
*ED- Fall Risk Assessment Last Done: 03/29/25 14:16
*ED COVID-19 Vaccine History Last Done: 03/29/25 14:16
ED- Cardiac Assessment Last Done: 03/29/25 14:19
Discharge Date and Time
Print Language: ROMANSH
[2025-03-29] MEDS: TYLENOL 1000 MG PO (14:56)
[2025-03-29 15:00] VITALS: BP 181/105
[2025-03-29 15:11] LABS: Hemoglobin 11.4 g/dL (13.0-18.0); Mean Corp Hgb Conc. 32.6 g/dL (33.0-37.0); Mean Corpuscular Hgb 25.8 pg (27.0-31.0); Mean Corpuscular Volume 79.2 fL (80.0-94.0); Mean Platelet Volume 8.8 fL (7.4-10.4); Platelet Count 237 10^3/uL (130-400); Red Blood Cell Count 4.42 10^6/uL (4.70-6.10); Red Cell Dist. Width 13.8 % (11.5-14.5); White Blood Cell Count 11.7 10^3/uL (4.8-10.8)
[2025-03-29 15:15] LABS: AST (SGOT) 22 U/L (17-59); Albumin 4.2 g/dl (3.5-5.0); Alkaline Phosphatase 142 U/L (38-126); Blood Urea Nitrogen 20 mg/dl (9-20); Calcium 9.7 mg/dl (8.4-10.2); Carbon Dioxide 28 mmol/L (22-30); Chloride 110 mmol/L (98-107); D-Dimer 3.49 ug/mlFEU (0.00-0.50); Estimated Creatinine Clearance 110 ml/min; Glucose 109 mg/dl (70-99); Potassium 4.3 mmol/L (3.5-5.1); Sodium 143 mmol/L (135-145); Total Bilirubin 0.4 mg/dl (0.2-1.3); Total Protein 7.7 g/dl (6.3-8.2); eGFR > 60.00
[2025-03-29 15:26] LABS: Troponin I 0.013 ng/ml
[2025-03-29 15:28] LABS: ALT (SGPT) 33 U/L (0-50)
[2025-03-29 15:49] LABS: % Basophils 0.7 % (0-2); % Eosinophils 18.4 % (0-6); % Immature Granulocytes 0.3 % (0-0.5); % Lymphocytes 25.7 % (20.5-51.1); % Monocytes 7.6 % (1.7-9.3); % Neutrophils 47.3 % (42.2-75.2); Absolute Basophils 0.1 10^3/uL (0-0.2); Absolute Eosinophils 2.2 10^3/uL (0-0.7); Absolute Monocytes 0.9 10^3/uL (0.1-0.6); Absolute Neutrophils 5.6 10^3/uL (1.4-6.5); Nucleated Red Blood Cells % 0 % (-)
[2025-03-29 16:05] VITALS: BP 176/101
[2025-03-29 16:45] VITALS: BP 166/96
--- NOTE | 2025-03-29 18:02 | CONSULT.CT ---
Consultation
-
Date/Time Consultation Performed: 03/29/25, 1800
Performing Provider: Pasquale Choe PA-C
Reason for Consultation: S/P CABG, chest pain, left pleural effusion
Patient History
Physicians
Outpatient [employer] E[employer]ctor: BERNARDINO Lewis
History of Present Illness
Patient is a 49-year-old male who is status post CABG x [address] on [address] Nation who presents to the emergency department today with complaints of chest pain/muscle soreness. Apparently the patient was recovering well from surgery and
has been returning to his usual activities. Yesterday he lifted his grandson who weighs approximately 40 pounds and at that time noted some acute chest pain and muscle soreness. He notes this has been present for the past couple of days which
concerned him. He also noted some blood-tinged sputum with coughing and this warranted an emergency department visit. Workup involved a CTA of his chest which ruled out pulmonary embolism. It also showed an intact sternotomy as well as a small to
moderate left pleural effusion with compressive atelectasis. Given these findings and clinical background we are asked to evaluate the patient for further management recommendations.
Currently the patient is resting comfortably and is without complaints. He is companied by his . He states the pain has been constant and dull in nature. He feels that his musculoskeletal as it worsens with activity and is relieved with rest.
He notes it does keep him up at night and is worsened with certain positions. Troponins and EKG are unremarkable for acute coronary ischemia.
Past Medical History
Coronary artery disease
Hypertension
Hyperlipidemia
Tobacco abuse
Past Surgical History
Status post CABG x 3 with GARCIA to LAD, SVG to PDA, SVG to posterolateral branch as well as left atrial appendage ligation on 02/26/[address] Nation
Family History
Family Medical History: Other (Noncontributory)
Social History
Alcohol: None
Drug: None
Tobacco: Smoker
Personal:
Living: With Spouse
Employment: Employed
Allergies
Allergy/AdvReac Type Severity Reaction Status Date / Time
No Known Allergies Allergy Verified 03/29/25 14:05
Home Medications
�Medication �Instructions �Recorded �Confirmed �Type
aspirin 81 mg chewable tablet 81 mg PO DAILY Blood clot 02/28/25 Rx
prevention/tx #0 tabs
budesonide-formoterol HFA 160 2 puff inhalation R BID 02/28/25 Rx
mcg-4.5 mcg/actuation aerosol Lung/breathing issues #1 g
inhaler (Symbicort)
buspirone 10 mg tablet 10 mg PO BID Mental Health/Anxiety 02/28/25 02/21/25 Rx
#0 tabs
sertraline 50 mg tablet 50 mg PO DAILY Mental 02/28/25 02/21/25 Rx
Health/Anxiety #0 tabs
acetaminophen 325 mg tablet 650 mg (2 x 325 mg) PO Q4HPRN PRN 03/02/25 Rx
mild pain,headache,temp >101F #0
tabs
atorvastatin 80 mg tablet 80 mg PO QPM #30 tabs 03/02/25 Rx
clopidogrel 75 mg tablet 75 mg PO DAILY #30 tabs 03/02/25 Rx
colchicine 0.6 mg tablet 0.6 mg PO DAILY #30 tabs 03/02/25 Rx
gabapentin 100 mg capsule 100 mg PO TID PRN Nerve pain #20 03/02/25 Rx
caps
lisinopril 2.5 mg tablet 2.5 mg PO DAILY #30 tabs 03/02/25 Rx
metoprolol succinate 25 mg 25 mg PO DAILY #30 tabs 03/02/25 Rx
tablet,extended release 24 hr
pantoprazole 40 mg tablet,delayed 40 mg PO DAILY #30 tabs 03/02/25 Rx
release
sennosides 8.6 mg-docusate sodium 1 tab PO Q12 PRN Constipation #0 03/02/25 Rx
50 mg tablet tabs
tramadol 50 mg tablet 100 mg (2 x 50 mg) PO Q6H PRN 03/02/25 Rx
Moderate to severe pain #28 tabs
cyclobenzaprine 10 mg tablet 10 mg PO TID PRN back pain #14 tabs 03/13/25 Rx
oxycodone 5 mg tablet 5 mg PO Q6H PRN Pain #12 tabs 03/13/25 Rx
Review of Systems
-
History Source: Patient and Family
General: Reports No Symptoms
HEENT: Reports No Symptoms
Respiratory: Reports No Symptoms
Cardiac: Reports Chest Pain
Abdomen/GI: Reports No Symptoms
: Reports No Symptoms
Musculoskeletal: Reports Myalgias
Skin: Reports No Symptoms
Neurological: Reports No Symptoms
Vascular: Reports No Symptoms
Physical Exam
Vital Signs
Temp 97.9 F 03/29/25 14:01
Temp route: Oral 03/29/25 14:01
Pulse 99 03/29/25 17:00
Resp Rate 17 03/29/25 17:00
Blood pressure 166/96 03/29/25 16:45
MAP (cuff-Maxim Monitor) 114 03/29/25 16:45
SaO2 97 03/29/25 17:00
Oxygen Mode of Delivery Room air 03/29/25 14:01
Can the patient verbally communicate their pain? Yes 03/29/25 15:56
Pain scale ratin 03/29/25 15:56
Actual Weight 90.265 kg 03/29/25 14:15
Body Mass Index (BMI) 27.0 03/29/25 14:15
Labs
03/29/25 14:50
03/29/25 14:50
Troponin I 0.013 ng/ml 03/29/25 14:50
Exam
General: Well Developed, Well Nourished and No Apparent Distress
HEENT: Normocephalic and Anicteric
Neck: Trachea Midline
Respiratory: Crackles (Left base, otherwise clear)
Cardiac: S1/S2 and Regular Rhythm
GI: Soft, Non Tender and Non Distended
Rectal: Deferred by Provider
Skin: Warm, Dry and Other (Well-healed midline sternotomy scar. Sternum stable with cough.)
Neuro: Awake and Alert
Psych: Calm
Assessment / Plan
-
Patient is status post CABG x 3 on 02/26/[address] Nation. He appears to be recovering well from surgery. His sternotomy is healing well and there is no evidence of sternal instability on exam or on CAT scan. He does not have a pulmonary
embolism. He does have a small to moderate left pleural effusion which seems to be an incidental finding as he does not complain of any shortness of breath. I believe his chest pain is musculoskeletal in nature given that he admits to breaching
his sternal precautions in the last several days by lifting beyond his limits. Troponins and EKG on admission were negative for acute coronary disease. From a CT surgery perspective I believe his issues can be sorted out on outpatient basis. He
may need left thoracentesis ultimately however the patient is hesitant given his lack of symptoms. Our office will follow-up with him on this regarding need for repeat chest x-ray.
Remainder of medical management per emergency department and other consultants.
I discussed this case with the attending surgeon who is in agreement with this plan.
Data Reviewed
-
EKG: Report Reviewed by me
CT Scan: Image Personally Visualized and interpreted
Labs: Labs Reviewed by me
Total Time Spent with Patient (in minutes): 47
[2025-03-29 18:27] VITALS: BP 161/104
== END 2025-03-29 18:39 | disposition home or self-care (01) ==
LOC: EMR 14:00
PROVIDERS: EMERGENCY PHYSICIAN Emergency Medicine; FAMILY PHYSICIAN Family Medicine
DX: G89.18 Other acute postprocedural pain (principal); J90 Pleural effusion, not elsewhere classified; I25.10 Atherosclerotic heart disease of native coronary artery without angina pectoris; E78.00 Pure hypercholesterolemia, unspecified; F17.200 Nicotine dependence, unspecified, uncomplicated; I10 Essential (primary) hypertension; I25.2 Old myocardial infarction; Z79.02 Long term (current) use of antithrombotics/antiplatelets; Z79.51 Long term (current) use of inhaled steroids; Z79.899 Other long term (current) drug therapy; Z87.74 Personal history of (corrected) congenital malformations of heart and circulatory system; Z90.49 Acquired absence of other specified parts of digestive tract; Z95.1 Presence of aortocoronary bypass graft; Z95.5 Presence of coronary angioplasty implant and graft
CPT/HCPCS: 99284; 71275; 80053; 84484; 85025; 85379; 93005; Q9967

== ENCOUNTER → 2025-04-03 13:23 | Outpatient (REF) | payer OTHER, SELFPAY | LOC: RAD 13:23 | PROVIDERS: ATTENDING PHYSICIAN Nurse Practitioner Acute Care; PRIMARYCARE PHYSICIAN Family Medicine | DX: J90 Pleural effusion, not elsewhere classified (principal) | CPT/HCPCS: 71046 ==

== ENCOUNTER → 2025-07-01 07:18 | Outpatient (REF) | payer OTHER, SELFPAY | LOC: HWRCS 07:18 | PROVIDERS: ATTENDING PHYSICIAN Physician Assistant; FAMILY PHYSICIAN Family Medicine | DX: I25.10 Atherosclerotic heart disease of native coronary artery without angina pectoris (principal); I25.5 Ischemic cardiomyopathy | CPT/HCPCS: 93306 ==